=== PATIENT | female | born 1945 | race Caucasian/White ===

== ENCOUNTER 2023-04-27 11:25 | Emergency (ER) | payer MEDICARE, SELFPAY ==
[2023-04-27 11:25] VITALS: BP 133/97; BMI 46.1
[2023-04-27 11:29] VITALS: BP 133/97
[2023-04-27 12:02] LABS: % Basophils 0.5 % (0-2); % Eosinophils 1.1 % (0-6); % Immature Granulocytes 0.5 % (0-0.5); % Lymphocytes 24.8 % (20.5-51.1); % Monocytes 8.2 % (1.7-9.3); % Neutrophils 64.9 % (42.2-75.2); Absolute Eosinophils 0.1 10^3/uL (0-0.7); Absolute Lymphocytes 1.5 10^3/uL (1.2-3.4); Absolute Monocytes 0.5 10^3/uL (0.1-0.6); Hematocrit 36.4 % (37.0-47.0); Hemoglobin 12.3 g/dL (12.0-16.0); Mean Corp Hgb Conc. 33.8 g/dL (33.0-37.0); Mean Corpuscular Hgb 28.9 pg (27.0-31.0); Mean Corpuscular Volume 85.6 fL (81.0-99.0); Mean Platelet Volume 11.7 fL (7.4-10.4); Nucleated Red Blood Cells % 0 %; Platelet Count 158 10^3/uL (130-400); Red Blood Cell Count 4.25 10^6/uL (4.20-5.40); Red Cell Dist. Width 14.1 % (11.5-14.5); White Blood Cell Count 6.2 10^3/uL (4.8-10.8)
[2023-04-27 12:16] LABS: ALT (SGPT) 18 U/L (0-35); AST (SGOT) 20 U/L (14-36); Albumin 3.9 g/dl (3.5-5.0); Alkaline Phosphatase 105 U/L (38-126); Blood Urea Nitrogen 46 mg/dl (7-17); Calcium 10.2 mg/dl (8.4-10.2); Carbon Dioxide 32 mmol/L (22-30); Chloride 106 mmol/L (98-107); Estimated Creatinine Clearance 49 ml/min; Glucose 74 mg/dl (70-99); Potassium 3.9 mmol/L (3.5-5.1); Sodium 141 mmol/L (135-145); Total Bilirubin 0.8 mg/dl (0.2-1.3); Total Protein 6.5 g/dl (6.3-8.2); eGFR 41.57
[2023-04-27 12:26] LABS: NT-proBNP 840 pg/ml; Troponin I < 0.012 ng/ml
[2023-04-27 12:56] VITALS: BP 105/83
[2023-04-27 13:00] VITALS: BP 122/49
[2023-04-27 14:00] VITALS: BP 77/46
--- NOTE | 2023-04-27 14:25 | ED.CVA ---
History of Present Illness
General
Chief Complaint: CVA/TIA Symptoms
Source: patient
Exam Limitations: none
Time Seen by Provider: 04/27/23 11:55
Onset of Stroke Symptoms
Onset of symptoms known: Yes
Date of onset of symptoms: 04/27/23
Travel History
Have you had any contact with someone who has COVID-19?: No
Do you have any symptoms of coronavirus? Fever > 100 degrees, chills, cough, shortness of breath, sore throat, loss of taste or smell, muscle aches, or headache?: No
History of Present Illness
History of Present Illness:
78-year-old female who presents after she developed tingling in her left arm. Patient denies any motor weakness. She did have a little weird sensation in her neck as well. It then resolved. She reports no complaints of my evaluation. She
specifically denies headache, motor weakness, lower extremity symptoms, speech changes, vision changes. Patient does admit that she lives by herself so she is unsure what her speech sounded like but admits that she did not feel there was any
abnormality. The patient currently offers no complaints. She denies chest pain. The patient is on Eliquis and states she has not missed any doses.
Past History
Past History
ED Past Medical History: Arrthythmia (Paroxysmal atrial fibrillation), CAD, GERD, HTN, Hypercholesterolemia, NIDDM and Other (Morbid obesity, CKD)
ED Past Surgical History: Cardiac (Ablation for A. fib), Cholecystectomy and Gynecological
Social History
Tobacco: Non-smoker
Alcohol: None
Personal:
Living: with family
Family History
Family History: Unable to obtain
Phy Exam
Physical Exam
Physical Exam:
CONSTITUTIONAL Patient alert and oriented to person, place and time. Well-appearing. Vital signs reviewed.
HEAD atraumatic, normocephalic.
EYES eyelids normal to inspection, Pupils equally round and reactive to light, Extraocular muscles intact, Conjunctiva normal, Sclera normal.
NECK normal range of motion, Trachea midline, no jugular venous distention.
RESPIRATORY CHEST No respiratory distress noted, Chest expansion equal, Bilateral breath sounds clear.
CARDIOVASCULAR irregularly irregular, Heart sounds normal.
BACK normal inspection, no obvious deformities
UPPER EXTREMITY range of motion normal, Motor strength normal, no cyanosis, no edema.
LOWER EXTREMITY range of motion normal, Motor strength normal, no cyanosis, chronic bilateral edema with chronic skin changes
NEURO Speech normal, No focal motor deficits, [place] coma scale 15, Memory normal, Cranial Nerves intact to screening exam. No pronator drift. Normal [id number].
SKIN skin warm, dry, and normal in color.
PSYCHIATRIC patient oriented to person place and time, Normal affect.
Course
Orders/Labs/Results
Orders:
Orders
04/27/23 11:43
EKG [Electrocardiogram (*1)] Urgent
Reason for Study: Chest Pain
EKG- Treatment ONCE
04/27/23 11:55
CT Head W/o Iv Contrast Urgent
Comment:
Reason For Exam: L sided numbness
Complete Blood Count/With Diff Urgent
Comprehensive Metabolic Panel Urgent
NT-proBNP Urgent
Troponin I Urgent
04/27/23 14:44
Vital Signs- Treatment ONCE
Frequency: Once
04/27/23 14:56
Troponin I Urgent
Abnormal Lab Results
04/27/23 04/27/23
11:55 14:57
Hct 36.4 L %
(37.0-47.0)
MPV 11.7 H fL
(7.4-10.4)
Carbon Dioxide 32 H mmol/L
(22-30)
BUN 46 H mg/dl
(7-17)
Creatinine 1.3 H mg/dL
(0.6-1.0)
POC Glucose 179 H mg/dl
(70-99)
04/27/23 11:55
04/27/23 11:55
Vital Signs
Initial and Last Documented VS:
Initial Vital Signs
Temp Pulse Resp BP Pulse Ox
98.2 F 77 20 133/97 98
04/27/23 11:25 04/27/23 11:25 04/27/23 11:25 04/27/23 11:25 04/27/23 11:25
Last Documented Vital Signs
Temp Pulse Resp BP Pulse Ox
98.2 F 60 20 77/46 100
04/27/23 11:25 04/27/23 14:45 04/27/23 11:25 04/27/23 14:00 04/27/23 14:45
MDM/Problems Addressed
MDM/Problems Addressed:
Sensory changes, chronic A-fib
*Radiology
Radiology exam reviewed: preliminary read by ED provider (No obvious intracranial hemorrhage) and radiology read reviewed
*Pulse Oximetry
Patient hypoxic: no
*EKG
Interpreted by ED Provider?: Yes
Interpretation: abnormal
Rate: bradycardiac
Rhythm: a-fib
[place]: normal axis
Ischemia: non-specific ST changes
*Senior C Web Developer Interpretation
Rate: bradycardiac
Interpretation: abnormal
Rhythm: a-fib
*Critical Care Note
Total Time (30-74mins, 75-104mins- exclusive of procedures): Not Applicable
Data Reviewed
Review of Other/Old Records Reveals: Discharge Summary (February 2023 discharge summary)
Source: patient
Patient Management
Escalation/DeEscalation of care consider admission/obs:
Considered admission but patient is appears well and her symptoms have all resolved. She has no motor weakness and never did. Unclear etiology but her troponin is negative but will repeat a second troponin to rule out cardiac cause. She had no
lower extremity involvement. No facial involvement. Do not suspect CVA/TIA. However will recommend her to continue her anticoagulation and recommend patient follow-up
ED Attending Note
-
Portions of this chart may have been created with voice recognition software.� Occasional wrong word or��sound alike� substitutions may have occurred due to the inherent limitations of voice recognition software.
Discharge Plan
Departure
Patient Disposition: Home (Routine Discharge)
Date of Disposition: 04/27/23
Time of Disposition: 15:38
Patient with high blood pressure during this ER visit?: Yes
Discharge Problem:
Tingling in extremities
Prescriptions:
No Action
atorvastatin 20 MG tablet
20 mg PO DAILY
levothyroxine 125 MCG tablet
125 mcg PO DAILY
insulin aspart U-100 [Novolog FlexPen U-100 Insulin] 300 UNITS/3 ML insulin pen
16 units SC .BEFORE BREAKFAST
cholecalciferol (vitamin D3) 1,000 UNITS tablet
1,000 units PO DAILY Qty: 0
furosemide 40 MG tablet
40 mg PO DAILY 0RF
omeprazole 40 MG capsule,delayed release(DR/EC)
40 mg PO DAILY
insulin aspart U-100 [Novolog FlexPen U-100 Insulin] 100 unit/mL (3 mL) Insulin Pen
12 unit SC .AT LUNCH & DINNER
Eliquis 5 mg Tablet
5 mg PO BID
Levemir U-100 Insulin 1,000 UNITS/10 ML solution
55 units SC HS
furosemide [Lasix] 20 mg tablet
20 mg PO DAILY Qty: 30 0RF
cephalexin 500 mg capsule
500 mg PO QID 7 Days Qty: 28 0RF
Referrals:
Joyce Travis MD [Family Provider] -
Activity Restrictions/Additional Instructions:
Return immediately for any recurrence of symptoms, weakness of any kind, speech changes, vision changes, headache, chest pain, shortness of breath or any other concerns. Please continue your blood thinner as prescribed and see your doctor in the
next 3 days for follow-up and reevaluation.
Interventions
Interventions:
*Risk Screen - Suicide Last Done: 04/27/23 11:25
*Neglect/Abuse Screening Last Done: 04/27/23 11:25
ED- Fall Risk Assessment Last Done: 04/27/23 11:25
*ED COVID-19 Vaccine History Last Done: 04/27/23 11:25
--- NOTE | 2023-04-27 14:54 | EDRN ---
BP from 04/27/23 1400 of is invalid. The BP cuff was not on the patient at the time.
[2023-04-27 14:59] LABS: Glucose - Point of Care 179 mg/dl (70-99)
[2023-04-27 15:34] LABS: Troponin I < 0.012 ng/ml
== END 2023-04-27 15:40 | disposition home or self-care (01) ==
LOC: EMR 11:25
PROVIDERS: EMERGENCY PHYSICIAN Emergency Medicine; FAMILY PHYSICIAN Family Medicine
DX: R20.2 Paresthesia of skin (principal); I25.10 Atherosclerotic heart disease of native coronary artery without angina pectoris; I12.9 Hypertensive chronic kidney disease with stage 1 through stage 4 chronic kidney disease, or unspecified chronic kidney disease; E11.22 Type 2 diabetes mellitus with diabetic chronic kidney disease; N18.9 Chronic kidney disease, unspecified; K21.9 Gastro-esophageal reflux disease without esophagitis; E66.01 Morbid (severe) obesity due to excess calories; I48.0 Paroxysmal atrial fibrillation; Z79.01 Long term (current) use of anticoagulants; Z90.49 Acquired absence of other specified parts of digestive tract
CPT/HCPCS: 99284; 70450; 80053; 82962; 83880; 84484; 85025; 93005

== ENCOUNTER 2023-07-12 10:50 | Emergency (ER) | payer MEDICARE, SELFPAY ==
[2023-07-12] VITALS (7 sets, daily range): BP systolic 135–184; BP diastolic 40–97; PULSE 58–85; BMI 48.4
--- NOTE | 2023-07-12 11:47 | EDRN ---
Dr. Gil in to see pt at thistime.
--- NOTE | 2023-07-12 11:49 | EDRN ---
Otto ELDER informed about pt's itching in vaginal area w/ yellow discharge and also that pt if examined preferring female examiner.
[2023-07-12 12:14] LABS: Hematocrit 37.1 % (37.0-47.0); Hemoglobin 11.8 g/dL (12.0-16.0); Mean Corp Hgb Conc. 31.8 g/dL (33.0-37.0); Mean Corpuscular Hgb 27.8 pg (27.0-31.0); Mean Corpuscular Volume 87.5 fL (81.0-99.0); Mean Platelet Volume 10.4 fL (7.4-10.4); Platelet Count 142 10^3/uL (130-400); Red Blood Cell Count 4.24 10^6/uL (4.20-5.40); Red Cell Dist. Width 13.8 % (11.5-14.5); White Blood Cell Count 6.8 10^3/uL (4.8-10.8)
[2023-07-12] MEDS: NSS 500 IV (12:26)
[2023-07-12] MEDS: ANTIVERT 25 MG PO (12:33)
[2023-07-12 12:39] LABS: Troponin I < 0.012 ng/ml
[2023-07-12 12:42] LABS: ALT (SGPT) 13 U/L (0-35); AST (SGOT) 17 U/L (14-36); Albumin 3.5 g/dl (3.5-5.0); Alkaline Phosphatase 114 U/L (38-126); Blood Urea Nitrogen 41 mg/dl (7-17); Calcium 10.3 mg/dl (8.4-10.2); Carbon Dioxide 31 mmol/L (22-30); Chloride 107 mmol/L (98-107); Estimated Creatinine Clearance 59 ml/min; Glucose 183 mg/dl (70-99); Magnesium 1.9 mg/dl (1.6-2.3); Potassium 4.3 mmol/L (3.5-5.1); Sodium 139 mmol/L (135-145); Total Bilirubin 0.5 mg/dl (0.2-1.3); Total Protein 6.1 g/dl (6.3-8.2)
--- NOTE | 2023-07-12 12:43 | ED.GENMED ---
History of Present Illness
General
Chief Complaint: Dizziness
Source: patient
Exam Limitations: none
Time Seen by Provider: 07/12/23 11:40
Nursing documentation reviewed up to this point in time: agreed with
Travel History
Have you had any contact with someone who has COVID-19?: No
Do you have any symptoms of coronavirus? Fever > 100 degrees, chills, cough, shortness of breath, sore throat, loss of taste or smell, muscle aches, or headache?: No
History of Present Illness
History of Present Illness:
Patient with history of atrial fibrillation on Eliquis, presents to ED secondary to ringing sensation in her ears over the past 3 days, associated with dizziness when standing up this morning. Denies room spinning sensation. Denies headache.
Denies blurred vision. Denies loss of sensation or weakness. Denies recent illness. Denies recent change in medications or diet. Denies previous history of similar symptoms. Denies chest pain or chest palpitations. Denies nausea or vomiting
with lightheadedness.
Past History
Past History
ED Past Medical History: Arrthythmia (Paroxysmal atrial fibrillation), CAD, GERD, HTN, Hypercholesterolemia, NIDDM and Other (Morbid obesity, CKD)
ED Past Surgical History: Cardiac (Ablation for A. fib), Cholecystectomy and Gynecological
Social History
Tobacco: Non-smoker
Alcohol: None
Personal:
Living: with family
Family History
Family History: Unable to obtain
Review of Systems
Review of Systems
Allergies reviewed?: Yes
All Other Systems: ROS reviewed and negative except as documented in HPI and ROS
Constitutional: Reports no symptoms
EENT: Reports no symptoms
Respiratory: Reports no symptoms
Cardiac: Reports no symptoms; Denies palpitations
ABD/GI: Reports no symptoms; Denies nausea or vomiting
: Reports no symptoms
Musculoskeletal: Reports no symptoms
Skin: Reports no symptoms
Neurological: Reports dizzy; Denies headache, weakness or numbness
Phy Exam
Physical Exam
Physical Exam:
Physical Exam
General: mild distress, not acutely ill. afebrile
Head: nc/at. eomi. no nystagmus noted.
Ear: normal
Neck: supple. no meningeal signs.
Heart: irregularly irregular, no murmur. equal radial pulses.
Lungs: no acute respiratory distress. clear bilaterally
Abdomen: normal bowel sounds. not tender.
Neuro: alert and oriented. no focal neurological deficits
Skin: no rash
Psychiatric: well kept. interactive and cooperative
Extremities: no edema. no calf tenderness.
Course
Orders/Labs/Results
Orders:
Orders
07/12/23 11:50
Electrocardiogram (*1) Urgent
Reason for Study: Vertigo / Dizzy
CT Head W/o Iv Contrast Urgent
Comment:
Reason For Exam: dizziness
EKG- Treatment ONCE
Orthostatic VS- Treatment ONCE
Meclizine [Antivert] 25 mg PO NOW STA
07/12/23 11:51
0.9% Sodium Chloride 500 ml [Nss] 500 ml IV BOLUS
07/12/23 12:08
Complete Blood Count/No Diff Urgent
Comprehensive Metabolic Panel Urgent
Magnesium Urgent
Troponin I Urgent
07/12/23 16:26
Urinalysis Reflex To Culture Urgent
Date Specimen was Collected: 07/12/23
Time Specimen was Collected: 16:25
Urine Microscopic Reflex Cult Urgent
Urine Culture Urgent
PAUL Source: U
Specimen Description:
Date Specimen was Collected: 07/12/23
Time Specimen was Collected: 16:25
07/12/23 17:03
Cephalexin Monohydrate [Keflex] 250 mg PO NOW STA
Abnormal Lab Results
07/12/23 07/12/23 07/12/23
12:08 13:59 16:26
Hgb 11.8 L g/dL
(12.0-16.0)
MCHC 31.8 L g/dL
(33.0-37.0)
Carbon Dioxide 31 H mmol/L
(22-30)
BUN 41 H mg/dl
(7-17)
Creatinine 1.1 H mg/dL
(0.6-1.0)
Glucose 183 H mg/dl
(70-99)
Calcium 10.3 H mg/dl
(8.4-10.2)
Total Protein 6.1 L g/dl
(6.3-8.2)
Ur Occult Blood Reflex Trace A
(Negative)
Urine Nitrite (Reflex) Positive A
(Negative)
Leukocyte Esterase Rfl 2+ A
(Negative)
Urine WBC (Reflex) >100 A /HPF
(0-5)
Urine Bacteria (Reflex) Many A
(Negative)
POC Glucose 136 H mg/dl
(70-99)
07/12/23 12:08
07/12/23 12:08
Vital Signs
Initial and Last Documented VS:
Initial Vital Signs
Temp Pulse Resp BP Pulse Ox
98.3 F 69 16 184/84 98
07/12/23 10:59 07/12/23 10:59 07/12/23 10:59 07/12/23 10:59 07/12/23 10:59
Last Documented Vital Signs
Temp Pulse Resp BP Pulse Ox
98.3 F 64 16 153/84 100
07/12/23 10:59 07/12/23 16:40 07/12/23 16:40 07/12/23 16:40 07/12/23 16:40
MDM/Problems Addressed
MDM/Problems Addressed:
CT head: NAD.
History and exam consistent with likely an acute vertigo episode, triggered by her ongoing tinnitus. Patient reports significant improvement symptoms after treatment. Patient is able to ambulate with use of walker, which is baseline, without any
recurrent symptoms. As such, patient will be discharged home in stable condition, with prescription for meclizine, to be used as needed, along with referral to ENT physician for further evaluation and treatment.
U/A noted. As patient has had history of urinary incontinence with UTI, will empirically start treatment with Keflex 250 twice daily x 7 days.
*Critical Care Note
Total Time (30-74mins, 75-104mins- exclusive of procedures): Not Applicable
ED Attending Note
-
Portions of this chart may have been created with voice recognition software.� Occasional wrong word or��sound alike� substitutions may have occurred due to the inherent limitations of voice recognition software.
Discharge Plan
Departure
Patient Disposition: Home (Routine Discharge)
Date of Disposition: 07/12/23
Time of Disposition: 16:14
Patient with high blood pressure during this ER visit?: Yes
Discharge Problem:
Vertigo, Tinnitus, Acute UTI
Instructions: Tinnitus (ringing in the ears), Urinary Tract Infection, Adult (DC), Vertigo (a Type of Dizziness) (DC)
Prescriptions:
New
meclizine 25 mg tablet
25 mg PO TID PRN (Reason: dizziness) Qty: 20 0RF
cephalexin 250 mg capsule
250 mg PO Q12H Qty: 14 0RF
No Action
atorvastatin 20 MG tablet
20 mg PO DAILY
levothyroxine 125 MCG tablet
125 mcg PO DAILY
insulin aspart U-100 [Novolog FlexPen U-100 Insulin] 300 UNITS/3 ML insulin pen
16 units SC .BEFORE BREAKFAST
cholecalciferol (vitamin D3) 1,000 UNITS tablet
1,000 units PO DAILY Qty: 0
furosemide 40 MG tablet
40 mg PO DAILY 0RF
omeprazole 40 MG capsule,delayed release(DR/EC)
40 mg PO DAILY
insulin aspart U-100 [Novolog FlexPen U-100 Insulin] 100 unit/mL (3 mL) Insulin Pen
12 unit SC .AT LUNCH & DINNER
Eliquis 5 mg Tablet
5 mg PO BID
Levemir U-100 Insulin 1,000 UNITS/10 ML solution
55 units SC HS
furosemide [Lasix] 20 mg tablet
20 mg PO DAILY Qty: 30 0RF
cephalexin 500 mg capsule
500 mg PO QID 7 Days Qty: 28 0RF
Referrals:
Cholo Kessler MD [Active] -
Joyce Travis MD [Family Provider] -
Activity Restrictions/Additional Instructions:
As discussed, please follow-up with your primary care physician and/or referred to ENT physician for further evaluation and treatment. Your prescription has been sent electronically to [facility] pharmacy in [place].
Interventions
Interventions:
*Risk Screen - Suicide Last Done: 07/12/23 10:59
*General Assessment Last Done: 07/12/23 10:59
*Neglect/Abuse Screening Last Done: 07/12/23 10:59
ED- Fall Risk Assessment Last Done: 07/12/23 11:11
*ED COVID-19 Vaccine History Last Done: 07/12/23 10:59
*Nursing Disposition Last Done: 07/12/23 16:40
ED- Neurological Assessment Last Done: 07/12/23 11:11
ED- Cardiac Assessment Last Done: 07/12/23 11:11
ED Swallowing Screen Last Done: 07/12/23 12:32
Discharge Date and Time
Discharge Date/Time: 07/12/23 17:25
Print Language: ALBANIAN
--- NOTE | 2023-07-12 13:47 | EDRN ---
Pt stated to me that she is feeling like her glucose is very low at this time and is therefore requesting to eat. Glucose on labwork was 183. Dr. Gil called and this RN will check glucose and administer boxed lunch to pt.
[2023-07-12 14:03] LABS: Glucose - Point of Care 136 mg/dl (70-99)
--- NOTE | 2023-07-12 14:25 | EDRN ---
Pt called me to her room teary eyed and red faced and demanded to eat for low glucose at 13:40. Pt stated that she could feel her glucose is low and needs to eat. This RN checked pt's serum glucose from labs drawn and it was 183 at 12 noon. Pt was
informed and said that she knows her glucose is too low. This RN said she will speak to Dr. Gil and he said to check pt's glucose and then she can eat. Glucose 136 and pt administered a boxed lunch at 13:55 after pt c/o ESCALANTE for hypoglycemia. Pt
states to this RN that her glucose has to be between 152 and 175 or she is hypoglycemic.
--- NOTE | 2023-07-12 14:33 | EDRN ---
Dr. Gil in to see pt. Pt is to get OOB w/ walker and attempt to ambulate at this time.
--- NOTE | 2023-07-12 16:04 | EDRN ---
Dr. Gil in room w/pt at this time.
--- NOTE | 2023-07-12 16:15 | EDRN ---
Pt ambulated to BR w/ walker only needing assist to lift her legs OOB w/out assist. Pt was able to maneuver in BR w/ walker. During walk to BR pt stated that she had no further dizziness and the loud noise she was hearing is now much less. pt then
was able to maneuver off of toilet, wash her hands and ambulate w/ walker back to her room w/out assist and only needing assist to lift her legs onto stretcher. Urine spec obtained and sent. This RN called Dr. Gil at this time and informed him about
pt's ability to ambulated.
--- NOTE | 2023-07-12 16:21 | EDRN ---
Dr. Gil in room w/ pt.
[2023-07-12 16:33] LABS: Urine Albumin Trace (Neg - Trace); Urine Bilirubin Negative (Negative); Urine Character Slightly Cloudy (Clear); Urine Color Yellow; Urine Glucose Negative (Negative); Urine Ketone Negative (Negative); Urine Leukocyte 2+ (Negative); Urine Nitrite Positive (Negative); Urine Occult Blood Trace (Negative); Urine Urobilinogen Negative (Neg - 1+); Urine pH 6.5 (5.0-9.0)
[2023-07-12 16:43] LABS: Urine Bacteria Many (Negative); Urine Red Blood Cell 0-2 /HPF (0-2); Urine White Cell >100 /HPF (0-5)
--- NOTE | 2023-07-12 16:53 | EDRN ---
Pt requesting RN to call her son for a ride home. This RN just attempted to call pt's son Leobardo w/ number listed in chart and no answer at this time.
--- NOTE | 2023-07-12 16:58 | EDRN ---
Dr. Gil has returned to speak w/ pt at this time.
--- NOTE | 2023-07-12 17:12 | EDRN ---
Pt's son is here and will transport pt to her residense.
--- NOTE | 2023-07-12 17:15 | EDRN ---
This RN called Omkar Whitney per pt's request and he answered walking into ER.
[2023-07-12] MEDS: KEFLEX 250 MG PO (17:16)
== END 2023-07-12 17:25 | disposition home or self-care (01) ==
LOC: EMR 10:50
PROVIDERS: EMERGENCY PHYSICIAN Emergency Medicine; FAMILY PHYSICIAN Family Medicine
DX: R42 Dizziness and giddiness (principal); H93.13 Tinnitus, bilateral; N39.0 Urinary tract infection, site not specified; I10 Essential (primary) hypertension; I48.0 Paroxysmal atrial fibrillation; Z79.01 Long term (current) use of anticoagulants
CPT/HCPCS: 99285; 96360; 70450; 80053; 81003; 81015; 82962; 83735; 84484; 85027; 87086; 93005

== ENCOUNTER 2023-09-24 15:04 | Inpatient (IN) | payer MEDICARE, SELFPAY ==
[2023-09-24] VITALS (7 sets, daily range): BP systolic 116–176; BP diastolic 48–100; BMI 46.0
[2023-09-24 08:55] LABS: % Basophils 0.3 % (0-2); % Eosinophils 1.2 % (0-6); % Immature Granulocytes 0.3 % (0-0.5); % Lymphocytes 18.5 % (20.5-51.1); % Monocytes 8.3 % (1.7-9.3); % Neutrophils 71.4 % (42.2-75.2); Absolute Eosinophils 0.1 10^3/uL (0-0.7); Absolute Lymphocytes 1.1 10^3/uL (1.2-3.4); Absolute Monocytes 0.5 10^3/uL (0.1-0.6); Absolute Neutrophils 4.1 10^3/uL (1.4-6.5); Hematocrit 35.2 % (37.0-47.0); Mean Corp Hgb Conc. 31.3 g/dL (33.0-37.0); Mean Corpuscular Hgb 27.2 pg (27.0-31.0); Mean Corpuscular Volume 86.9 fL (81.0-99.0); Mean Platelet Volume 10.4 fL (7.4-10.4); Nucleated Red Blood Cells % 0 %; Platelet Count 147 10^3/uL (130-400); Red Blood Cell Count 4.05 10^6/uL (4.20-5.40); Red Cell Dist. Width 14.5 % (11.5-14.5); White Blood Cell Count 5.8 10^3/uL (4.8-10.8)
--- NOTE | 2023-09-24 09:10 | ED.GENMED ---
History of Present Illness
General
Chief Complaint: Cardiac Symptoms
Source: patient
Exam Limitations: none
Time Seen by Provider: 09/24/23 08:22
History of Present Illness
History of Present Illness:
78-year-old female complaining of heart racing palpitations lightheaded especially with exertion progressive over the last few weeks. Was much worse this morning. Currently asymptomatic at rest but states symptoms are fairly significant with
exertion. She was scheduled for a leg ultrasounds today.
Past History
Past History
ED Past Medical History: Arrthythmia (Paroxysmal atrial fibrillation), CAD, GERD, HTN, Hypercholesterolemia, NIDDM and Other (Morbid obesity, CKD)
ED Past Surgical History: Cardiac (Ablation for A. fib), Cholecystectomy and Gynecological
Social History
Tobacco: Non-smoker
Alcohol: None
Personal:
Living: with family
Family History
Family History: Unable to obtain
Review of Systems
Review of Systems
All Other Systems: Not applicable
Constitutional: Denies fever
Cardiac: Denies chest pain or syncope
Phy Exam
Physical Exam
Physical Exam:
GENERAL: Alert and oriented in no apparent distress
EYE: Orbits normal.
NECK: Supple, no thyroid palpable
ENT: Pharynx without erythema
CARDIAC: Mildly irregular no murmur.
LUNGS: Clear breath sounds,normal
ABDOMEN: Soft, without focal tenderness or distention. Elevated BMI
NEUROLOGICAL: Alert and oriented , grossly non-focal
SKIN: Warm and dry, no rash or lesion, no discoloration, skin intact.
MUSCULOSKELETAL: Chronic appearing significant edema
PSYCH: Normal and appropriate interaction.
Course
Orders/Labs/Results
Orders:
Orders
09/24/23 08:24
Electrocardiogram (*1) Urgent
Reason for Study: Palpitations
09/24/23 08:25
EKG- Treatment ONCE
09/24/23 08:46
CMP [Comprehensive Metabolic Panel] Urgent
Complete Blood Count/With Diff Urgent
NT-proBNP Urgent
Troponin I Urgent
09/24/23 08:48
CXR2 [CR Chest - 2 Views ] Urgent
Comment:
Reason For Exam: Heart racing/tachycardia
US Periph Venous LOWER Ext Reginald Urgent
Comment:
Reason For Exam: Bilateral leg swelling
Abnormal Lab Results
09/24/23
08:46
RBC 4.05 L 10^6/uL
(4.20-5.40)
Hgb 11.0 L g/dL
(12.0-16.0)
Hct 35.2 L %
(37.0-47.0)
MCHC 31.3 L g/dL
(33.0-37.0)
Absolute Lymphs (auto) 1.1 L 10^3/uL
(1.2-3.4)
Lymphocytes % 18.5 L %
(20.5-51.1)
Chloride 108 H mmol/L
(98-107)
BUN 36 H mg/dl
(7-17)
Creatinine 1.1 H mg/dL
(0.6-1.0)
Glucose 212 H mg/dl
(70-99)
Calcium 10.3 H mg/dl
(8.4-10.2)
Total Protein 5.7 L g/dl
(6.3-8.2)
Albumin 3.4 L g/dl
(3.5-5.0)
09/24/23 08:46
09/24/23 08:46
Vital Signs
Initial and Last Documented VS:
Initial Vital Signs
Pulse Resp BP Pulse Ox
75 20 176/84 100
09/24/23 08:26 09/24/23 08:26 09/24/23 08:26 09/24/23 08:26
Last Documented Vital Signs
Temp Pulse Resp BP Pulse Ox
98.1 F 60 17 176/84 98
09/24/23 08:31 09/24/23 12:30 09/24/23 12:30 09/24/23 08:31 09/24/23 12:30
MDM/Problems Addressed
Differential Diagnosis Includes:
Patient with exertional lightheadedness and heart racing. Clinically this sounds like her atrial fibrillation gets somewhat out of control with exertion. Etiology uncertain at this time. Clinically not in heart failure. Highly doubt pulmonary
emboli given her Eliquis. We will do leg ultrasounds however. Workup in progress.
*Radiology
Radiology exam reviewed: radiology read reviewed (Negative kidney) and other (Negative leg ultrasound)
*Pulse Oximetry
Patient hypoxic: no
*EKG
Interpreted by ED Provider?: Yes
Interpretation: abnormal
Comparison EKG: no changes
Heart Rate: 71
Rate: normal
Rhythm: a-fib
[place]: normal axis
Interval: normal interval
QRS Pattern: normal QRS
Ischemia: non-specific ST changes
*Duplicator Punch Operator Interpretation
Rate: normal
Interpretation: normal
Heart Rate: 80
Rhythm: a-fib
*Critical Care Note
Total Time (30-74mins, 75-104mins- exclusive of procedures): Not Applicable
Data Reviewed
Review of Other/Old Records Reveals: Labs, Radiology Studies and Testing
Update Note
Update Note:
Patient describing significant symptoms with exertion and is uncomfortable with outpatient management. Will refer for further evaluation and patient
ED Attending Note
-
Portions of this chart may have been created with voice recognition software.� Occasional wrong word or��sound alike� substitutions may have occurred due to the inherent limitations of voice recognition software.
Discharge Plan
Departure
Patient Disposition: Admit
Date of Disposition: 09/24/23
Time of Disposition: 13:31
Presentation/result/management discussed w/ accepting MD/DO: Hospitalist
Discharge Problem:
Atrial fibrillation, Dyspnea on exertion, Chronic lower extremity edema
Prescriptions:
No Action
atorvastatin 20 MG tablet
20 mg PO DAILY
levothyroxine 125 MCG tablet
125 mcg PO DAILY
cholecalciferol (vitamin D3) 1,000 UNITS tablet
1,000 units PO DAILY Qty: 0
omeprazole 40 MG capsule,delayed release(DR/EC)
40 mg PO DAILY
Eliquis 5 mg Tablet
5 mg PO BID
cephalexin 500 mg capsule
500 mg PO QID 7 Days Qty: 28 0RF
furosemide 40 MG tablet
60 mg PO DAILY
oxybutynin chloride 5 mg Tablet Extended Release 24hr
5 mg PO DAILY
gabapentin 100 mg Capsule
100 mg PO HS
metoprolol succinate 25 mg Tablet Extended Release 24 Hr
25 mg PO BIDPRN PRN (Reason: afib)
PreserVision AREDS 2,148 mcg-113 mg-45 mg-17.4mg Tablet
1 tab PO DAILY
insulin degludec [Tresiba FlexTouch U-100] 100 unit/mL (3 mL) Insulin Pen
45 unit SC HS
[place] 3-6-9 1,200 mg Capsule
1 cap PO DAILY
Fiasp FlexTouch U-100 Insulin 100 unit/mL (3 mL) Insulin Pen
16 sliding scale dose SC AC
Referrals:
Joyce Travis MD [Family Provider] -
Interventions
Interventions:
*Risk Screen - Suicide Last Done: 09/24/23 08:40
*General Assessment Last Done: 09/24/23 08:40
ED- Fall Risk Assessment Last Done: 09/24/23 08:40
ED- Pulmonary Assessment Last Done: 09/24/23 08:40
ED- Cardiac Assessment Last Done: 09/24/23 08:40
Discharge Date and Time
Print Language: SUDANESE
[2023-09-24 09:12] LABS: ALT (SGPT) 12 U/L (0-35); AST (SGOT) 16 U/L (14-36); Albumin 3.4 g/dl (3.5-5.0); Alkaline Phosphatase 105 U/L (38-126); Blood Urea Nitrogen 36 mg/dl (7-17); Calcium 10.3 mg/dl (8.4-10.2); Carbon Dioxide 28 mmol/L (22-30); Chloride 108 mmol/L (98-107); Glucose 212 mg/dl (70-99); Sodium 142 mmol/L (135-145); Total Bilirubin 0.5 mg/dl (0.2-1.3); Total Protein 5.7 g/dl (6.3-8.2)
[2023-09-24 09:23] LABS: NT-proBNP 1230 pg/ml; Troponin I < 0.012 ng/ml
[2023-09-24 14:34] LABS: Glucose - Point of Care 154 mg/dl (70-99)
--- NOTE | 2023-09-24 14:59 | HPS.HSE ---
Family Physician
-
Family Physician: Joyce Travis MD
Chief Complaint
-
Exertional dyspnea.
History of Present Illness
Patient is a 78 years old female with heart failure preserved EF, permanent atrial fibrillation, obstructive sleep apnea on CPAP, insulin requiring diabetes and obesity who presents with weeks of gradually increasing exertional dyspnea, currently
with even minimal exertion such as changing clothes and bathing. Patient complains of chest heaviness with exertion but denies pain. She noticed gaining of weight. She admits to significant lightheadedness and occasional palpitations with
exertion. She denies any fever or chills. She has been compliant with oral diuretic regimen as well as BiPAP at night.
Medical History
Past Medical History
Past Medical History: Reports Arrhythmia (Permanent atrial fibrillation), CHF, GERD, HTN and IDDM
Past Surgical History: Reports None
Social History
Tobacco: Non-smoker
Alcohol: None
Drug: None
Personal:
Living: With Family
Family History
Family History: Not pertinent
Allergies / Home Medications
Allergies reflects when Allergies were last updated in [email or web address].
Home Medications with original date entered in [email or web address]
Allergy/Medication List:
Allergies
Allergy/AdvReac Type Severity Reaction Status Date / Time
adhesive tape Allergy Blistering Verified 09/24/23 08:38
metformin HCl Allergy Diarrhea Verified 09/24/23 08:38
[From Glucophage]
vancomycin Allergy Unknown Verified 09/24/23 08:38
Home Medications
atorvastatin 20 mg tablet 20 mg PO DAILY High cholesterol 11/27/11
levothyroxine 125 mcg tablet 125 mcg PO DAILY Thyroid 01/31/14
cholecalciferol (vitamin D3) 25 mcg (1,000 unit) tablet 1,000 units PO DAILY Supplement ##0 10/27/20
omeprazole 40 mg capsule,delayed release 40 mg PO DAILY Gastrointestinal issue 02/05/21
apixaban 5 mg tablet (Eliquis) 5 mg PO BID Blood Clot Prevention/Tx 03/08/23
cephalexin 500 mg capsule 500 mg PO QID 7 days #28 caps 03/11/23
fish, borage, flaxseed oils-omega 3,6,9 comb no.1 1,200 mg capsule ([place] 3-6-9) 1 cap PO DAILY 09/24/23
furosemide 40 mg tablet 60 mg PO DAILY 09/24/23
gabapentin 100 mg capsule 100 mg PO HS 09/24/23
insulin aspart (niacinamide)(U-100) 100 unit/mL(3 mL) subcutaneous pen (Fiasp FlexTouch U-100 Insulin) 16 sliding scale dose SC AC 09/24/23
insulin degludec 100 unit/mL (3 mL) subcutaneous pen (Tresiba FlexTouch U-100 insulin) 45 unit SC HS 09/24/23
metoprolol succinate 25 mg tablet,extended release 24 hr 25 mg PO BIDPRN PRN afib 09/24/23
oxybutynin chloride 5 mg tablet,extended release 24 hr 5 mg PO DAILY 09/24/23
vitamins A,C,Q-ftxq-nhcffw 2,148 mcg-113 mg-45 mg-17.4 mg tablet (PreserVision AREDS) 1 tab PO DAILY 09/24/23
Review of Systems
-
A 12 point ROS was completed and negative except as noted: Yes
Physical Exam
Vital Signs
Vital Signs
Temp Pulse Resp BP Pulse Ox
98.1 F 69 14 150/89 100
09/24/23 08:31 09/24/23 14:00 09/24/23 14:00 09/24/23 14:00 09/24/23 14:00
Physical Exam
General: Well Developed, Well Nourished and No Apparent Distress
HEENT: NormoCephalic, Moist mucous membranes and Atraumatic
Respiratory: Clear
Cardiac: S1/S2 and Regular Rhythm; No Murmur or Rub
GI: Soft, Non Tender, Non Distended and Normal Bowel Sounds; No Organomegaly
Rectal: Deferred by Provider
Musculoskeletal: No Clubbing, No Cyanosis and No Edema
Skin: No Rash
Neuro: Nonfocal/grossly intact
Laboratory Results
-
09/24/23 08:46
09/24/23 08:46
Laboratory Results
Total Bilirubin 0.5 mg/dl (0.2-1.3) 09/24/23 08:46
AST 16 U/L (14-36) 09/24/23 08:46
ALT 12 U/L (0-35) 09/24/23 08:46
Alkaline Phosphatase 105 U/L (38-126) 09/24/23 08:46
Troponin I < 0.012 ng/ml 09/24/23 08:46
Data Reviewed
-
Diagnostic Radiology: Image Personally Visualized and interpreted and Report Reviewed by me
Lab Data: Labs Reviewed by me
Impression/Plan
-
IMPRESSION:
Presentation with exertional dyspnea, occasional palpitations and lightheadedness.
Acute CHF exacerbation preserved EF.
Conditions prior to admission:
Chronic CHF preserved EF.
Chronic lower extremity edema and stasis cellulitis
Permanent atrial fibrillation
Anticoagulation with Eliquis
Obstructive sleep apnea.
Obesity due to excessive calories.
IDDM
Essential hypertension
Dyslipidemia
Hypothyroidism on replacement
GERD.
PLAN:
Presents with gradually increasing exertional dyspnea, palpitations, chest heaviness and lightheadedness
Exam with not easy to assess volume status due to body habitus
Not hypoxic
Noted with gaining weight close to 14 pounds since last hospitalization with CHF on 03/22.
Elevated pro CHF BNP over the baseline
Chest x-ray with no infiltrates
Echocardiogram 03/22 with LVEF 55-60%, A-fib, mild to moderate MR, mild TR.
Update echocardiogram
Consider cardiology consultation
Start IV diuresis with Lasix 60 mg IV twice daily
Daily weight
Daily BMP
Permanent atrial fibrillation
She complains of palpitations with exertion
EKG with A-fib in 60s.
Continue rate control with metoprolol 25 mg twice daily. She has history of bradycardia. Will monitor.
Continue anticoagulation with Eliquis
Obstructive sleep apnea
Continue BiPAP at night
Chronic left greater than right lower extremity edema
Chronic venous stasis dermatitis with no evidence of infection.
Lower extremity Doppler negative for DVT
Hopeful improved with diuresis.
IDDM.
Update hemoglobin A1c
Carbohydrate controlled diet.
Continue preadmission regimen with aspart 16 units AC and Tresiba 45 units at bedtime
Hypothyroidism
Continue levothyroxine
DVT prophylaxis/Eliquis
Full code
[2023-09-24] MEDS: LASIX 60 MG IV (16:02)
[2023-09-24 17:30] LABS: Glucose - Point of Care 191 mg/dl (70-99)
[2023-09-24] MEDS: LIPITOR 20 MG PO (17:45)
[2023-09-24] MEDS: SYNTHROID 125 MCG PO (17:45)
--- NOTE | 2023-09-24 18:04 | PTCARENOTE ---
Received pt from ER via stretcher, accompanied by ER staff. Pt AAO x3, HOGAN; able to transfer to bed with assistance/walker; legs weak. VSS. Placed on telemetry:A fib. Pt has +2 edema BLE/feet. On room air- pulse ox 98%, pt with (+) slight HARDEN;
(-) cough/sputum. Abd obese, soft, to start 1800 gurwinder diet. Incont large amts urine on arrival to room, pt insistent on Purewick catheter; instructed pt that Purewick would not be placed as she is able to get OOB to BSC with assistance. Afebrile;
lower legs/feet reddened/blistered. Oriented to 4East, currently resting in bed. Will continue to monitor.
[2023-09-24] MEDS: NOVOLOG FLEXPEN 16 UNITS SC (18:28)
[2023-09-24] MEDS: NOVOLOG FLEXPEN-LOW RESISTANCE 1 UNITS SC (18:29)
[2023-09-24] MEDS: TOPROL XL 25 MG PO (20:44)
[2023-09-24] MEDS: ELIQUIS 5 MG PO (20:45)
[2023-09-24 21:10] LABS: Glucose - Point of Care 73 mg/dl (70-99)
[2023-09-24] MEDS: LANTUS SC (21:30)
[2023-09-24 21:36] LABS: Glucose - Point of Care 73 mg/dl (70-99)
[2023-09-24 21:53] LABS: Glucose - Point of Care 88 mg/dl (70-99)
[2023-09-24] MEDS: NEURONTIN 100 MG PO (22:17)
[2023-09-25] VITALS (8 sets, daily range): BP systolic 118–169; BP diastolic 54–92; PULSE 69; O2SAT 95; BMI 45.5
[2023-09-25 03:06] LABS: Glucose - Point of Care 115 mg/dl (70-99)
[2023-09-25] MEDS: SYNTHROID 125 MCG PO (05:04)
--- NOTE | 2023-09-25 06:19 | PTCARENOTE ---
Pt w/ frequent pauses < 3 seconds and Bradycardia - not sustaining.
[2023-09-25 07:08] LABS: Glucose - Point of Care 121 mg/dl (70-99)
[2023-09-25 07:33] LABS: % Basophils 0.5 % (0-2); % Immature Granulocytes 0.3 % (0-0.5); % Lymphocytes 24.2 % (20.5-51.1); % Monocytes 9.2 % (1.7-9.3); % Neutrophils 63.8 % (42.2-75.2); Absolute Eosinophils 0.1 10^3/uL (0-0.7); Absolute Lymphocytes 1.6 10^3/uL (1.2-3.4); Absolute Monocytes 0.6 10^3/uL (0.1-0.6); Absolute Neutrophils 4.1 10^3/uL (1.4-6.5); Mean Corp Hgb Conc. 32.4 g/dL (33.0-37.0); Mean Corpuscular Hgb 27.2 pg (27.0-31.0); Mean Corpuscular Volume 84.2 fL (81.0-99.0); Mean Platelet Volume 10.6 fL (7.4-10.4); Nucleated Red Blood Cells % 0 %; Platelet Count 163 10^3/uL (130-400); Red Blood Cell Count 4.04 10^6/uL (4.20-5.40); Red Cell Dist. Width 14.6 % (11.5-14.5); White Blood Cell Count 6.4 10^3/uL (4.8-10.8)
[2023-09-25 07:59] LABS: Blood Urea Nitrogen 36 mg/dl (7-17); Calcium 9.8 mg/dl (8.4-10.2); Carbon Dioxide 32 mmol/L (22-30); Chloride 106 mmol/L (98-107); Estimated Creatinine Clearance 55 ml/min; Glucose 105 mg/dl (70-99); Potassium 4.1 mmol/L (3.5-5.1); Sodium 143 mmol/L (135-145); eGFR 45.76
[2023-09-25] MEDS: NOVOLOG FLEXPEN SC (09:29)
[2023-09-25] MEDS: NOVOLOG FLEXPEN-LOW RESISTANCE SC (09:29)
[2023-09-25] MEDS: TOPROL XL PO (09:30)
[2023-09-25] MEDS: ELIQUIS 5 MG PO ×2 (09:31→21:00)
[2023-09-25] MEDS: OCUVITE SOFTGEL 1 CAP PO (09:31)
[2023-09-25] MEDS: LASIX 60 MG IV ×2 (09:31→16:54)
[2023-09-25] MEDS: VITAMIN D3 (cholecalciferol) 25 MCG PO (09:32)
[2023-09-25] MEDS: PROTONIX 40 MG PO (09:32)
[2023-09-25] MEDS: LIPITOR 20 MG PO (09:32)
[2023-09-25] MEDS: DITROPAN 2.5 MG PO ×2 (09:32→21:00)
--- NOTE | 2023-09-25 09:49 | CON.CAR ---
Addendum entered and electronically signed by Mario Patel MD 09/25/23 14:24:
I saw and examined the patient.
The Turning Lathe Tender's note was reviewed and I agree with the note.
Comment:
GEN: No distress, awake, Ox3
HEENT: supple, anicteric, mmm
LUNGS: dec BS at bases
CV: irreg, S1/S2, 04/05 syst LSB, no gallop
ABD: soft, BS+, NT/ND
EXT: +1 edema
NEURO: Gross non-focal
SKIN: chronic stasis changes
Plan:
She has a past medical history of chronic A-fib, chronic diastolic heart failure, diabetes, lymphedema, cellulitis and obesity who presents with progressive acute on chronic heart failure with preserved ejection fraction, fatigue, shortness of
breath, and weight gain. She was given Toprol and then had a few 2-4 second pauses. She has noticed intermittent episodes of palpitations but is unclear whether this is from her A-fib. She has known edema with borderline cellulitis and this has
been worse recently.
Continue diuresis with IV Lasix. Her edema is likely multifactorial with venous stasis and lymphedema as well. Will try to remove as much fluid until creatinine worsens.
Will hold all beta-blockers for now. If she has tacky events off beta-miguel a therapy could consider permanent pacemaker. Will discuss with primary brass pourer.
Cardiac troponin is negative.
Will repeat echo.
Original Note:
Consultation
Consultation Request
Date/Time Consultation Performed: 09/25/23
Requesting Provider: Dr. Richardson
Performing Provider: Etelvina Harvey PA-C for Dr. Patel
Reason for Consultation: CHF, pauses
Medical History
-
Chief Complaint: palpitations, lightheadedness
History of Present Illness:
Patient is an 78 yo F with PMH of chronic atrial fibrillation on eliquis, history of PVI in 2012 and has failed multiple AAD therapies, chronic diastolic CHF, diabetes, lymphedema, SHAUN on CPAP who had been seen by PCP 09/16/23 for complaints of
increased LE edema. She had missed several lasix doses. She complained of palpitations and dizziness. She also had erythema of her L great toe and she was prescribed abx for cellulitis and told to follow up with cardiology. She was also ordered LE
US to r/o DVT which was supposed to take place yesterday however she continued to feel poorly so came to ER via EMS instead. She has history of pauses and bradycardia on BB in past and it was discontinued for this reason. At last cardiology office
visit 04/09/23, was restarted on PRN basis only for palpitations. She states over the last 6 weeks or so she has noted dyspnea on exertion/palpitations/dizziness with any activity causing her to stop to rest. She reports some chest tightness when
she feels her heart racing. She states she has taken Toprol multiple times over the last several weeks, however not on an every day basis. She states she is compliant with her Lasix, however breaks it up taking 40 mg every day at 11 AM and 20 mg
every day at 1:30 PM (supposed to take 60mg daily). Weight is up 14 pounds from 02/2023 admission if accurate. She has multiple small blisters on B/L feet which she states are new over the last several weeks. She was admitted and is being diuresed
with IV lasix. She took a dose of toprol yesterday morning and received a dose yesterday evening. Currently bradycardic in afib on tele, with HRs as low as 30s and 1 pause of 4.18 seconds, multiple <2.5 seconds. States she has been compliant with
eliquis. Cardiology consulted for evaluation.
PMH:
Chronic atrial fibrillation
Chronic OAC with eliquis
History of PVI 2012
Multiple failed AAD therapies
Chronic HFpEF
Diabetes
Chronic lymphedema
Chronic renal sufficiency
SHAUN on CPAP
Hypothyroidism
HTN
HLD
Obesity
Past Medical History
Past Medical History: Other (in HPI)
Social History
Tobacco: Non-Smoker
Alcohol: None
Family History
Family History: Cancer, Diabetes, Hypertension and Other (CHF)
Allergies / Home Medications
Allergy/AdvReac Type Severity Reaction Status Date / Time
adhesive tape Allergy Blistering Verified 09/24/23 17:28
metformin HCl Allergy Diarrhea Verified 09/24/23 17:28
[From Glucophage]
vancomycin Allergy Unknown Verified 09/24/23 17:28
�Medication �Instructions �Recorded �Confirmed �Type
atorvastatin 20 mg tablet 20 mg PO DAILY High cholesterol 11/27/11 09/24/23 History
levothyroxine 125 mcg tablet 125 mcg PO DAILY Thyroid 01/31/14 09/24/23 History
cholecalciferol (vitamin D3) 25 1,000 units PO DAILY Supplement ##0 10/27/20 09/24/23 History
mcg (1,000 unit) tablet
omeprazole 40 mg capsule,delayed 40 mg PO DAILY Gastrointestinal 02/05/21 09/24/23 History
release issue
apixaban 5 mg tablet (Eliquis) 5 mg PO BID Blood Clot 03/08/23 09/24/23 History
Prevention/Tx
cephalexin 500 mg capsule 500 mg PO QID 7 days #28 caps 03/11/23 09/24/23 Rx
fish, borage, flaxseed oils-omega 1 cap PO DAILY Supplement 09/24/23 09/24/23 History
3,6,9 comb no.1 1,200 mg capsule
([place] 3-6-9)
furosemide 40 mg tablet 60 mg PO DAILY Fluid 09/24/23 09/24/23 History
Retention/Swelling
gabapentin 100 mg capsule 100 mg PO HS Neurological Condition 09/24/23 09/24/23 History
insulin aspart 16 sliding scale dose SC AC 09/24/23 09/24/23 History
(niacinamide)(U-100) 100 unit/mL(3 Diabetes
mL) subcutaneous pen (Fiasp
FlexTouch U-100 Insulin)
insulin degludec 100 unit/mL (3 45 unit SC HS Diabetes 09/24/23 09/24/23 History
mL) subcutaneous pen (Tresiba
FlexTouch U-100 insulin)
metoprolol succinate 25 mg 25 mg PO BIDPRN PRN afib 09/24/23 09/24/23 History
tablet,extended release 24 hr
oxybutynin chloride 5 mg 5 mg PO DAILY Urinary Issue 09/24/23 09/24/23 History
tablet,extended release 24 hr
vitamins A,C,R-yofw-wvmjrh 2,148 1 tab PO DAILY Supplement 09/24/23 09/24/23 History
mcg-113 mg-45 mg-17.4 mg tablet
(PreserVision AREDS)
Review of Systems
-
History Source: Patient
All other systems: Negative unless noted
Physical Exam
Vital Signs
Temp Pulse Resp BP Pulse Ox
98.2 F 63 20 142/71 98
09/25/23 07:05 09/25/23 07:05 09/25/23 07:05 09/25/23 07:05 09/25/23 07:05
Lab Results
09/25/23 07:00
09/25/23 07:00
Troponin I < 0.012 ng/ml 09/24/23 08:46
Gwm-I-Urpbprmamhb Pept 1230 pg/ml 09/24/23 08:46
Impression / Plan
-
Primary Cinder Pitman: Dr. Casas
Assessment:
HARDEN
Palpitations
Lightheadedness
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
Acute on chronic HFpEF
Chronic atrial fibrillation
Chronic OAC with eliquis
History of PVI 2012
Multiple failed AAD therapies
Diabetes
Chronic lymphedema
Chronic renal insufficiency
SHAUN on CPAP
Hypothyroidism
HTN
HLD
Obesity
History of pauses on BB therapy in past
ECHO 03/10/2023: EF 55 to 60%, mild concentric LVH, mild to moderate MR, mild TR, A-fib during study
Plan:
-Patient presents with symptoms of lightheadedness, palpitations, dyspnea on exertion for the last 6 weeks
-complains of elevated HRs as OP however here HRs slow afib with pauses (longest 4.18 seconds however most <2.5 seconds).
-received 2 doses of 25mg toprol 09/23. hold further toprol and follow HR trends
-has been compliant with eliquis as OP
-check echo, last from 02/2023 with results as above
-trop negative x1. check 2nd trop
-continue diuresis with IV lasix 60mg BID, was taking 40mg at 11AM and 20mg at 1:30PM as OP (was supposed to be taking 60mg daily). Cr up slightly to 1.2, follow with diuresis
-CHF education
-LE US negative for DVT
-may need to consider for eventual PPM if confirmed to have tachybrady syndrome. will discuss with EP
-PT/OT as able
-d/w nursing
Data Reviewed
-
EKG: Tracing Personally Visualized and interpreted
Radiology: Report Reviewed by me
Ultrasound: Report Reviewed by me
Medical Tests (Nuc Med, Echo etc): Report Reviewed by me
Labs: Labs Reviewed by me
Old Records: Reviewed
[2023-09-25 10:26] LABS: Glycohemoglobin (HgbA1c) 7.1 % (4.0-5.6)
--- NOTE | 2023-09-25 10:50 | CARDSERVLU ---
Echocardiogram with [facility] completed after protocol screening completed. Allergies verified.
Patent IV site: _L AC____
IV site flushed with 0.9% NaCl pre and post administration.
Diluted bolus method utilized to enhance visualization of ventricular verma.
Total volume given: ___3.5_ mL
Patient tolerated all procedures well without complications.
--- NOTE | 2023-09-25 11:37 | W.PN.HOSP.TC ---
Addendum entered and electronically signed by Manuel Richardson MD 09/25/23 14:47:
Patient seen and examined
Discussed with resident
Discussed with nursing
IMPRESSION:
Presentation with exertional dyspnea, occasional palpitations and lightheadedness.
Acute CHF exacerbation preserved EF.
Conditions prior to admission:
Chronic CHF preserved EF.
Chronic lower extremity edema and stasis cellulitis
Permanent atrial fibrillation
Anticoagulation with Eliquis
Obstructive sleep apnea.
Obesity due to excessive calories.
IDDM
Essential hypertension
Dyslipidemia
Hypothyroidism on replacement
GERD.
PLAN:
Presents with gradually increasing exertional dyspnea, palpitations, chest heaviness and lightheadedness
Exam with not easy to assess volume status due to body habitus
Not hypoxic
Noted with gaining weight close to 14 pounds since last hospitalization with CHF on 03/22.
Elevated pro CHF BNP over the baseline
Chest x-ray with no infiltrates
Echocardiogram 03/22 with LVEF 55-60%, A-fib, mild to moderate MR, mild TR.
Update echocardiogram
She does have acute on chronic peripheral edema along with weight gain. Edema likely multifactorial given her BMI and venous stasis.
Continue attempt of IV diuresis with Lasix 60 mg IV twice daily. Monitor creatinine. Noted with climbing up to 1.2.
Permanent atrial fibrillation
She complains of palpitations with exertion
EKG with A-fib in 60s.
Patient has been on metoprolol at home as needed for palpitations. Received 2 doses since admission with now bradycardia and sinus pauses.
Hold further beta-blockers
Continue cardiac monitoring while optimizing volume status
Cardiology input appreciated
Continue anticoagulation with Eliquis
Obstructive sleep apnea
Continue BiPAP at night
Chronic left greater than right lower extremity edema
Chronic venous stasis dermatitis with no evidence of infection.
Lower extremity Doppler negative for DVT
Hopeful improved with diuresis.
IDDM.
Hemoglobin A1c 7.1
Noted with episode of hypoglycemia
Carbohydrate controlled diet.
Hold AC insulin. Continue Lantus monitoring for recurrent hypoglycemia.
Hypothyroidism
Continue levothyroxine
DVT prophylaxis/Eliquis
Full code
Original Note:
Today's Communication/Plan
-
- Repeat echocardiogram today.
- Hold metoprolol.
- IV furosemide.
- Check weight, I&O and BMP.
Assessment / Plan
Assessment / Plan
Assessment
Haydee Whitney, age 78, came to the hospital on 09-24-23 with weeks of gradually increasing exertional dyspnea, currently with even minimal exertion such as changing clothes and bathing. Patient complains of chest heaviness with exertion but denies
pain. She noticed gaining of weight. She admits to significant lightheadedness and occasional palpitations with exertion. She denies any fever or chills. She has been compliant with oral diuretic regimen as well as BiPAP at night.
Impression
* Acute on chronic heart failure with preserved ejection fraction
* Bradycardia with pauses/Tachy-Kenneth syndrome
* Permanent atrial fibrillation
* Obstructive sleep apnea
* Morbid obesity
* Type II diabetes mellitus
* Essential hypertension
* Hyperlipidemia
* Hypothyroidism
* Gastroesophageal reflux disease
* Chronic lymphedema
Plan
Acute on chronic heart failure with preserved ejection fraction
- Difficult to assess volume status due to body habitus
- Has not been hypoxic; respiratory exam unremarkable
- Weight gain of about 14 lbs since at least February 2023.
- pro-BNP elevated at 1230 on 09-24-23.
- Echocardiogram 03/22 with LVEF 55-60%, A-fib, mild to moderate MR, mild TR.
- Update echocardiogram today.
- Cardiology following.
- IV furosemide 60 mg BID.
- Check daily weights, I&Os and BMP.
Bradycardia with pauses/Tachy-Kenneth syndrome
- Occasional palpitations with exertion.
- Could be contributing to/causing her intermittent lightheadedness and dizziness.
- Bradycardic after receiving metoprolol 25 mg yesterday; will hold for now.
- If she has tacky events off beta-miguel a therapy could consider permanent pacemaker, per cardiology.
Permanent atrial fibrillation
- Bradycardia after getting metoprolol yesterday; held for now.
- On apixaban.
Obstructive sleep apnea
- Continue using C-PAP at bedtime.
Morbid obesity
Type II diabetes mellitus
- HbA1c 7.1 on 09-25-23.
- Carbohydrate controlled diet.
- Continue preadmission insulin dosing.
Essential hypertension
- Hold metoprolol
Hyperlipidemia
- Continue atorvastatin.
Hypothyroidism
- Continue levothyroxine.
Gastroesophageal reflux disease
- On pantoprazole.
Chronic lymphedema
- Keep legs elevated.
DVT prophylaxis
- On apixaban.
Code status
- Full.
Anticipated Discharge: Within 24 hours
Subjective/Interval History
-
Date of Service: September 25, 2023
Objective Data
-
Labs:
Laboratory Results
09/25/23
07:00
WBC 6.4
Hgb 11.0 L
Hct 34.0 L
Plt Count 163
Sodium 143
Potassium 4.1
Chloride 106
Carbon Dioxide 32 H
BUN 36 H
Creatinine 1.2 H
Glucose 105 H
Calcium 9.8
Vital Signs:
Vital Signs
Temp Pulse Resp BP Pulse Ox
98.2 F 63 20 142/71 98
09/25/23 07:05 09/25/23 07:05 09/25/23 07:05 09/25/23 07:05 09/25/23 07:05
I&O
09/24/23 09/25/23 09/26/23
06:59 06:59 06:59
Intake Total 780 / 780
Output Total 1850 / 185
Balance -1070 / -1070
Review of Systems
-
History Source: Patient
Constitutional: Reports Weight Gain and Fatigue
EENT: Reports No Symptoms Reported
Respiratory: Reports Other (exertional dyspnea; improved from yesterday)
Cardiac: Reports No Symptoms
Abdomen/GI: Reports No Symptoms
Genitourinary: Reports No Symptoms
Musculoskeletal: Reports No Symptoms
Skin: Reports Rash (bilateral lower extremity)
Neuro: Reports No Symptoms
Endocrine: Reports No Symptoms
Hematologic / Lymphatic: Reports No Symptoms
Allergy / Immunology: Reports No Symptoms
Physical Exam
-
General: No Apparent Distress and Comfortable
HEENT: Normocephalic, Atraumatic, Moist Mucous Membranes, Anicteric and No Ptosis
Respiratory: Clear to Auscultation and Non Labored Respirations
Cardiac: Regular Rhythm and S1/S2
Breast: Deferred by me
GI: Soft, Nontender and Nondistended
Rectal: Deferred by Provider
Genito-urinary: No Costovertebral Tender
Musculoskeletal: No Clubbing, No Cyanosis, Edema, Right Upper Extrem (1+), Edema, Left Upper Extrem (1+), Edema, Right Lower Extrem (2+) and Edema, Left Lower Extrem (2+)
Skin: Warm, Dry, Rash (bilateral lower extremity) and IV Access / Catheter Site
Neuro: Awake, Alert, Oriented and Nonfocal/Grossly Intact
Psych: Calm
[2023-09-25 12:11] LABS: Glucose - Point of Care 244 mg/dl (70-99)
[2023-09-25] MEDS: NOVOLOG FLEXPEN-LOW RESISTANCE 2 UNITS SC ×2 (12:16→16:53)
[2023-09-25 12:57] LABS: Troponin I < 0.012 ng/ml
[2023-09-25 13:15] LABS: TSH Reflex To Free T4 2.63 uIU/ml (0.47-4.68)
--- NOTE | 2023-09-25 14:30 | PTCARENOTE ---
Pt ambulating with PT in hallway, HR 120s-140s, back in 70s once at rest, cards made aware. plan of care ongoing.
[2023-09-25 16:31] LABS: Glucose - Point of Care 222 mg/dl (70-99)
[2023-09-25 19:44] LABS: Glucose - Point of Care 274 mg/dl (70-99)
--- NOTE | 2023-09-25 20:15 | PTCARENOTE ---
Pt up to the commode and HR went up to the 140s Afib did not sustain, but she felt dizzy and like she was going to pass out. Pt became very anxious and was able to be calmed down. During the episode she said she felt CP in her epigastric region. It
has now completely resolved. VSS T 98.2 HR 65 BP 153/86 pox 99% RA. Pt requesting BG be checked = 274. HEALTHCARE FINANCIAL ANALYST made aware. Kailey placed
[2023-09-25 21:12] LABS: Glucose - Point of Care 248 mg/dl (70-99)
[2023-09-25] MEDS: NEURONTIN 100 MG PO (21:26)
[2023-09-25] MEDS: LANTUS 0.450000000000000011 UNITS SC (21:26)
[2023-09-26 03:27] VITALS: BP 127/65
[2023-09-26] MEDS: SYNTHROID 125 MCG PO (05:25)
[2023-09-26 06:00] VITALS: BMI 44.7
[2023-09-26 07:01] LABS: Glucose - Point of Care 108 mg/dl (70-99)
[2023-09-26 07:05] VITALS: BP 151/64
[2023-09-26 07:57] LABS: Blood Urea Nitrogen 41 mg/dl (7-17); Calcium 10.2 mg/dl (8.4-10.2); Carbon Dioxide 34 mmol/L (22-30); Chloride 102 mmol/L (98-107); Estimated Creatinine Clearance 50 ml/min; Glucose 107 mg/dl (70-99); Potassium 3.6 mmol/L (3.5-5.1); Sodium 142 mmol/L (135-145); eGFR 41.57
[2023-09-26] MEDS: NOVOLOG FLEXPEN-LOW RESISTANCE SC ×2 (08:56→12:08)
[2023-09-26] MEDS: PROTONIX 40 MG PO (08:57)
[2023-09-26] MEDS: DITROPAN 2.5 MG PO ×2 (08:57→20:09)
[2023-09-26] MEDS: OCUVITE SOFTGEL 1 CAP PO (08:57)
[2023-09-26] MEDS: LIPITOR 20 MG PO (08:57)
[2023-09-26] MEDS: LASIX 60 MG IV ×2 (08:57→16:47)
[2023-09-26] MEDS: VITAMIN D3 (cholecalciferol) 25 MCG PO (08:59)
[2023-09-26] MEDS: ELIQUIS 5 MG PO ×2 (08:59→20:10)
--- NOTE | 2023-09-26 09:01 | W.PN.CARDCBS ---
Addendum entered and electronically signed by Omkar Pfeiffer MD 09/26/23 11:12:
Patient states her breathing is better.
PMH/PSH/SH/FH: Reviewed
Allergies: Metformin and vancomycin
Outpatient cardiac meds: Atorvastatin 20 mg a day, Eliquis 5 mg twice daily, furosemide 60 mg daily, Metoprolol ER 25 mg p.o. twice daily as needed
Current medications: Apixaban 5 mg twice daily, atorvastatin 20 mg a day, levothyroxine, furosemide 60 mg IV twice daily, metoprolol ER 12.5 mg daily
ROS negative except as above
138/66, pulse 72, respirate 16, afebrile, sats 99%, intake and output -1.8 L, weight is 133.4 kg, down 2.3 kg, was 140.9 kg on admission
No acute distress, morbidly obese, head neck exam unremarkable, lungs are relatively clear, JVD difficult to assess but probably still elevated, irregular rate and rhythm, no obvious murmurs, lymphedema, neuro nonfocal
Echo 09/25/2023: LVH, EF 67%, normal RV, mildly dilated left atrium mild MR
BUN/creatinine 41 and 1.3, potassium 3.9
Impression: See below
Plan:
Permanent atrial fibrillation: She remains in atrial fibrillation with a slow ventricular response at rest but with elevated heart rates with very limited ambulation. Beta-blockers have been held. However it may be necessary to restart to provide
rate control with activity. Will try metoprolol ER 12.5 mg daily and monitor for recurrent pauses. It may well be that she needs pacemaker implantation to permit adequate rate control of atrial fibrillation. She will be assessed by Dr. Casas
through the weekend.
Acute on chronic HFpEF: I think she is still volume overloaded, would continue IV furosemide. At present, renal function remains at acceptable. With regards to HFpEF, will investigate cost of SGLT2 antagonist. However bladder issues may preclude
use. She has CKD 3B so at present we will not start spironolactone. Overall, her echo is reassuring.
Original Note:
Today's Communication / Plan
-
continue IV lasix
follow Cr
respiratory to check CPAP settings
toprol 12.5mg daily - follow HR trends
Impression / Plan
-
Primary Law Firm Receptionist: Dr. Casas
Assessment:
HARDEN
Palpitations
Lightheadedness
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
Acute on chronic HFpEF
Chronic atrial fibrillation
Chronic OAC with eliquis
History of PVI 2012
Multiple failed AAD therapies
Diabetes
Chronic lymphedema
Chronic renal insufficiency
SHAUN on CPAP
Hypothyroidism
HTN
HLD
Obesity
History of pauses on BB therapy in past
ECHO 03/10/2023: EF 55 to 60%, mild concentric LVH, mild to moderate MR, mild TR, A-fib during study
ECHO 09/25/23: EF 67%, mild cLVH, mild MR, mild MI, no significant change compared to prior
Plan:
-Patient presented with symptoms of lightheadedness, palpitations, dyspnea on exertion for the last 6 weeks
-she is diuresing well on IV lasix. weight down 8 pounds from admission if accurate. Cr trending up to 1.3, continue to monitor closely in setting of diuresis. volume status difficult to determine
-was taking lasix 40mg at 11AM and 20mg at 1:30PM as OP (was supposed to be taking 60mg daily)
-she does have evidence of some tachybrady syndrome on review of tele. when bradycardic, has some brief pauses, all less than 2.5 seconds. most of these seem to be overnight. states she is compliant with CPAP, consider respiratory eval to ensure
correct CPAP settings
-she states her symptoms appear to be improving with diuresis. overall HR trends ok.
-d/w EP, will plan to resume toprol at lower dose of 12.5mg daily. hopefully can avoid PPM placement
-has been compliant with eliquis as OP
-echo with results as above
-trop negative x2
-CHF education
-LE US negative for DVT
-PT/OT as able
-d/w nursing
Progress Note - Law Firm Receptionist
Subjective
Date of Service: September 26, 2023
reports good urine output with IV lasix. reports was able to ambulate with less symptoms today
Objective
Labs:
09/25/23 07:00
09/26/23 07:15
Labs
Hgb 11.0 g/dL (12.0-16.0) L 09/25/23 07:00
Hct 34.0 % (37.0-47.0) L 09/25/23 07:00
Plt Count 163 10^3/uL (130-400) 09/25/23 07:00
Sodium 142 mmol/L (135-145) 09/26/23 07:15
Potassium 3.6 mmol/L (3.5-5.1) 09/26/23 07:15
BUN 41 mg/dl (7-17) H 09/26/23 07:15
Creatinine 1.3 mg/dL (0.6-1.0) H 09/26/23 07:15
Glucose 107 mg/dl (70-99) H 09/26/23 07:15
Troponins
09/24/23 09/25/23
08:46 12:19
Troponin I < 0.012 < 0.012
Vital Signs and I&O:
Vital Signs
Temp Pulse Resp BP Pulse Ox
98.7 F 76 20 127/65 97
09/26/23 03:27 09/26/23 03:27 09/26/23 03:27 09/26/23 03:27 09/26/23 03:27
Vital Signs
Temp Pulse Resp BP Pulse Ox
98.7 F 76 20 127/65 97
09/26/23 03:27 09/26/23 03:27 09/26/23 03:27 09/26/23 03:27 09/26/23 03:27
Intake & Output
09/24/23 09/25/23 09/26/23 09/27/23
07:59 07:59 07:59 07:59
Intake Total 780 / 780 1260 / 1260
Output Total 1850 / 1850 3050 / 3050
Balance -1070 / -1070 -1790 / -1790
Physical Exam
Physical Exam
GEN: No distress, awake, alert, oriented x3. obese
HEENT: supple, anicteric, mmm, eomi
LUNGS: CTA anterolaterally B/L, no wheezes
CV: Irreg, S1/S2, no murmur
ABD: soft, BS+, NT/ND
EXT: No cyanosis, clubbing. 1+ edema of B/L LE
NEURO: Gross non-focal
SKIN: Warm, pink, dry. No rash
[2023-09-26] MEDS: TOPROL XL 12.5 MG PO (10:34)
--- NOTE | 2023-09-26 11:07 | W.PN.HOSP.TC ---
Addendum entered and electronically signed by Manuel Richardson MD 09/26/23 15:25:
Patient seen and examined
Discussed with resident
Discussed with nursing
IMPRESSION:
Presentation with exertional dyspnea, occasional palpitations and lightheadedness.
Acute CHF exacerbation preserved EF.
Conditions prior to admission:
Chronic CHF preserved EF.
Chronic lower extremity edema and stasis cellulitis
Permanent atrial fibrillation
Anticoagulation with Eliquis
Obstructive sleep apnea.
Obesity due to excessive calories.
IDDM
Essential hypertension
Dyslipidemia
Hypothyroidism on replacement
GERD.
PLAN:
Presents with gradually increasing exertional dyspnea, palpitations, chest heaviness and lightheadedness
Exam with not easy to assess volume status due to body habitus
Not hypoxic
Noted with gaining weight close to 14 pounds since last hospitalization with CHF on 03/22.
Elevated pro CHF BNP over the baseline
Chest x-ray with no infiltrates
Echocardiogram 03/22 with LVEF 55-60%, A-fib, mild to moderate MR, mild TR.
Updated echocardiogram with no significant change
She does have acute on chronic peripheral edema along with weight gain. Edema likely multifactorial given her BMI and venous stasis.
Dyspnea significantly improved with diuresis and her weight is close to her baseline 130 kg
Noted bump in creatinine, although overall renal function acceptable in patient with CKD stage IIIa�B
Would consider to transition to oral Lasix on 09/26.
Permanent atrial fibrillation
She complains of palpitations with exertion
EKG with A-fib in 60s.
Patient has been on metoprolol at home as needed for palpitations. Received 2 doses since admission with now bradycardia and sinus pauses.
Attempt to reintroduce beta-miguel a at a lower dose today on 09/25. Monitor closely. If recurrent pauses, may require pacemaker implantation.
Cardiology input appreciated
Continue anticoagulation with Eliquis
Persistent lightheadedness, no evidence of focal neurologic findings.
Check orthostatic vitals.
Obstructive sleep apnea
Continue BiPAP at night
Chronic left greater than right lower extremity edema
Chronic venous stasis dermatitis with no evidence of infection.
Lower extremity Doppler negative for DVT
Hopeful improved with diuresis.
IDDM.
Hemoglobin A1c 7.1
Noted with episode of hypoglycemia
Carbohydrate controlled diet.
Hold AC insulin. Continue Lantus monitoring for recurrent hypoglycemia.
Hypothyroidism
Continue levothyroxine
DVT prophylaxis/Eliquis
Full code
Original Note:
Today's Communication/Plan
-
* Metoprolol 12.5 mg daily; monitor for pauses.
* Check orthostatic vitals.
* IV diuresis.
* Follow daily weights, I&O and BMP.
Assessment / Plan
Assessment / Plan
Assessment
Haydee Whitney, age 78, came to the hospital on 09-24-23 with weeks of gradually increasing exertional dyspnea, currently with even minimal exertion such as changing clothes and bathing. Patient complains of chest heaviness with exertion but denies
pain. She noticed gaining of weight. She admits to significant lightheadedness and occasional palpitations with exertion. She denies any fever or chills. She has been compliant with oral diuretic regimen as well as BiPAP at night.
Impression
* Acute on chronic heart failure with preserved ejection fraction
* Lightheadedness
* Permanent atrial fibrillation
* Bradycardia with pauses/Tachy-Kenneth syndrome
* Obstructive sleep apnea
* Morbid obesity
* Type II diabetes mellitus
* Essential hypertension
* Hyperlipidemia
* Hypothyroidism
* Gastroesophageal reflux disease
* Chronic lymphedema
Plan
Acute on chronic heart failure with preserved ejection fraction
- Difficult to assess volume status due to body habitus
- Has not been hypoxic; respiratory exam unremarkable
- Weight gain of about 14 lbs since at least February 2023.
- pro-BNP elevated at 1230 on 09-24-23.
- Echocardiogram 03/22 with LVEF 55-60%, A-fib, mild to moderate MR, mild TR.
- Update echocardiogram on 09-25-23 was unchanged.
- Cardiology following.
- IV furosemide 60 mg BID.
- Check daily weights, I&Os and BMP.
Lightheadedness
- Has experienced progressively worsening lightheadedness for the past few months.
- Possibly multifactorial in setting of volume overload, afrib, pauses with bradycardia, using metoprolol.
- Experienced lightheadedness this morning a 15-20 minutes after taking metoprolol 12.5 mg; 'felt like I will fall off this chair'.
- Will check orthostatic vitals.
Permanent atrial fibrillation
Bradycardia with pauses/Tachy-Kenneth syndrome
- Occasional palpitations with exertion over the past few months.
- Could be contributing to/causing her intermittent lightheadedness and dizziness, which got worse starting this year.
- Bradycardic after receiving metoprolol 25 mg on 09-24-23; was held for a day.
- Re-introduced with 12.5 mg on 09-26-23, per cardiology; monitor for recurrent pauses.
- If the pauses return and persist, she will likely require a pacemaker.
- On apixaban.
Obstructive sleep apnea
- Continue using C-PAP at bedtime.
Chronic kidney disease, stage IIIa
- Renal function slightly worsened with continued diuresis.
- Will consider adding an SGLT2 inhibitor.
- Monitor BMP.
Morbid obesity
Type II diabetes mellitus
- HbA1c 7.1 on 09-25-23.
- Carbohydrate controlled diet.
- Continue preadmission insulin dosing.
Essential hypertension
- Hold metoprolol
Hyperlipidemia
- Continue atorvastatin.
Hypothyroidism
- Continue levothyroxine.
Gastroesophageal reflux disease
- On pantoprazole.
Chronic lymphedema
- Keep legs elevated.
DVT prophylaxis
- On apixaban.
Code status
- Full.
Anticipated Discharge: 24 - 48 hours
Subjective/Interval History
-
Date of Service: September 26, 2023
Objective Data
-
Labs:
Laboratory Results
09/26/23
07:15
Sodium 142
Potassium 3.6
Chloride 102
Carbon Dioxide 34 H
BUN 41 H
Creatinine 1.3 H
Glucose 107 H
Calcium 10.2
Vital Signs:
Vital Signs
Temp Pulse Resp BP Pulse Ox
97.4 F 72 16 138/66 99
09/26/23 07:05 09/26/23 10:34 09/26/23 07:05 09/26/23 10:34 09/26/23 07:05
I&O
09/25/23 09/26/23 09/27/23
06:59 06:59 06:59
Intake Total 780 / 780 1260 / 1260
Output Total 1850 / 1850 3050 / 3050
Balance -1070 / -1070 -1790 / -1790
Review of Systems
-
History Source: Patient
Constitutional: Reports Fatigue (improved)
EENT: Reports No Symptoms Reported
Respiratory: Reports Other (exertional dyspnea; significantly improved)
Cardiac: Reports No Symptoms
Abdomen/GI: Reports No Symptoms
Genitourinary: Reports No Symptoms
Musculoskeletal: Reports No Symptoms
Skin: Reports Rash (bilateral lower extremity)
Neuro: Reports No Symptoms
Endocrine: Reports No Symptoms
Hematologic / Lymphatic: Reports No Symptoms
Allergy / Immunology: Reports No Symptoms
Physical Exam
-
General: No Apparent Distress and Comfortable
HEENT: Normocephalic, Atraumatic, Moist Mucous Membranes, Anicteric and No Ptosis
Respiratory: Clear to Auscultation and Non Labored Respirations
Cardiac: Regular Rhythm and S1/S2
Breast: Deferred by me
GI: Soft, Nontender and Nondistended
Rectal: Deferred by Provider
Genito-urinary: No Costovertebral Tender
Musculoskeletal: No Clubbing, No Cyanosis, Edema, Right Upper Extrem (1+), Edema, Left Upper Extrem (1+), Edema, Right Lower Extrem (2+) and Edema, Left Lower Extrem (2+)
Skin: Warm, Dry, Rash (bilateral lower extremity) and IV Access / Catheter Site
Neuro: Awake, Alert, Oriented and Nonfocal/Grossly Intact
Psych: Calm
[2023-09-26 11:27] LABS: Glucose - Point of Care 174 mg/dl (70-99)
--- NOTE | 2023-09-26 11:45 | CM ---
Haydee lives at [facility], [facility]. She manages well in her apartment and has supportive family who assist with transportation and groceries. The community also pulls together to help their neighbors during illness. Haydee
is known to [facility] and will likely resume services at discharge.
Plan: Discharge to home with [facility]. Family will provide transportation home.
--- NOTE | 2023-09-26 12:27 | PTCARENOTE ---
Patient restarted on low dose of metop this shift- 12.5mg. This dose was given around 1030 am, patient HR dropped into 30's around 12:30. Cards LABOR ECONOMICS TEACHER notified through TT. Pt HR recovered instantly and she was asymptomatic.
[2023-09-26 14:43] VITALS: PULSE 72; O2SAT 95
--- NOTE | 2023-09-26 14:49 | PTCARENOTE ---
Patient out of bed in chair for meals. Pt endorsed dizziness on standing/transferring. Pt is extremely anxious to move/ambulate, RN keeps reinforcing confidence in patient that staff is here to help her ambulate and move and that her heart rhythm
and rate is being monitored continuously.
[2023-09-26 15:05] VITALS: BP 135/72
--- NOTE | 2023-09-26 15:33 | VNURNOTE ---
Home Health Liaison met with patient at 1445 to discuss [facility] nurse/therapy, visits, schedule and homebound status. Patient is agreeable and understands that visits at home will be 2-3 x per week to assess and teach medical management. Patient has a
scale and is able to log a daily weight.
[facility] brochure provided with contact information. Patient is aware that [facility] will contact her for start of care in 1-2 days after discharge from .
[facility] referral completed in [facility].
[2023-09-26 16:31] LABS: Glucose - Point of Care 262 mg/dl (70-99)
[2023-09-26] MEDS: NOVOLOG FLEXPEN-LOW RESISTANCE 3 UNITS SC (16:48)
--- NOTE | 2023-09-26 16:54 | PTCARENOTE ---
unable to obtain orthostatic VS as patient is back in bed and is fearful of moving up and down again. Pt continues to have anxiety about ambulation because she feels instantly dizzy and it scares her.
[2023-09-26 19:59] VITALS: BP 145/66
[2023-09-26 21:40] LABS: Glucose - Point of Care 260 mg/dl (70-99)
[2023-09-26] MEDS: LANTUS 0.450000000000000011 UNITS SC (22:29)
[2023-09-26] MEDS: NEURONTIN 100 MG PO (22:29)
[2023-09-26 23:50] VITALS: BP 129/56
[2023-09-27 03:39] VITALS: BP 119/69
[2023-09-27] MEDS: SYNTHROID 125 MCG PO (05:38)
[2023-09-27 05:47] VITALS: BMI 44.5
[2023-09-27 07:05] VITALS: BP 144/69
[2023-09-27 07:46] LABS: Blood Urea Nitrogen 45 mg/dl (7-17); Calcium 10.4 mg/dl (8.4-10.2); Carbon Dioxide 33 mmol/L (22-30); Chloride 101 mmol/L (98-107); Estimated Creatinine Clearance 46 ml/min; Glucose 152 mg/dl (70-99); Potassium 3.9 mmol/L (3.5-5.1); Sodium 142 mmol/L (135-145); eGFR 38.03
[2023-09-27 07:52] LABS: Glucose - Point of Care 140 mg/dl (70-99)
[2023-09-27] MEDS: NOVOLOG FLEXPEN-LOW RESISTANCE SC (08:32)
[2023-09-27] MEDS: ELIQUIS 5 MG PO ×2 (09:26→20:35)
[2023-09-27] MEDS: LASIX 60 MG IV (09:26)
[2023-09-27] MEDS: DITROPAN 2.5 MG PO ×2 (09:26→20:35)
[2023-09-27] MEDS: PROTONIX 40 MG PO (09:27)
[2023-09-27] MEDS: TOPROL XL 12.5 MG PO (09:27)
[2023-09-27] MEDS: LIPITOR 20 MG PO (09:27)
[2023-09-27] MEDS: OCUVITE SOFTGEL 1 CAP PO (09:27)
[2023-09-27] MEDS: FLUSH (NSS) 1 FLUSH IV (09:28)
[2023-09-27] MEDS: VITAMIN D3 (cholecalciferol) 25 MCG PO (09:28)
--- NOTE | 2023-09-27 09:33 | W.PN.CARDCBS ---
Today's Communication / Plan
-
Changed to p.o. Lasix
No current indication for pacing
Will follow daily
Oral anticoagulation continue
Impression / Plan
-
Primary Cardio Tech: Dr. Casas
Assessment:
HARDEN
Palpitations
Lightheadedness
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
Acute on chronic HFpEF
Chronic atrial fibrillation
Chronic OAC with eliquis
History of PVI 2012
Multiple failed AAD therapies
Diabetes
Chronic lymphedema
Chronic renal insufficiency
SHAUN on CPAP
Hypothyroidism
HTN
HLD
Obesity
History of pauses on BB therapy in past
ECHO 03/10/2023: EF 55 to 60%, mild concentric LVH, mild to moderate MR, mild TR, A-fib during study
ECHO 09/25/23: EF 67%, mild cLVH, mild MR, mild [place], no significant change compared to prior
Plan:
-She has been diuresing well on IV Lasix. Her BUN and creatinine are creeping up and would change her to p.o. Lasix 60 mg p.o. twice daily on 09/26
-was taking lasix 40mg at 11AM and 20mg at 1:30PM as OP (was supposed to be taking 60mg daily)
-she does have evidence of some tachybrady syndrome on review of tele. when bradycardic, has some brief pauses, all less than 2.5 seconds. most of these seem to be overnight. states she is compliant with CPAP, consider respiratory eval to ensure
correct CPAP settings. I do not think these short pauses are primarily responsible for her symptoms of dizziness. There is no current indication for pacing and she is tolerating her metoprolol at low-dose. I plan to see her November 13 in the
office and if she has ongoing symptoms we can consider a single-chamber pacemaker implant. She is at somewhat higher risk given her elevated BMI.
-she states her symptoms appear to be improving with diuresis. overall HR trends ok.
-Continue oral anticoagulation
-echo with results as above
-trop negative x2
-CHF education
-LE US negative for DVT
-PT/OT as able
-d/w nursing
Progress Note - Cardio Tech
Subjective
Date of Service: September 27, 2023
Total Time Spent with Patient (in minutes): Feels better
Objective
Labs:
09/25/23 07:00
09/27/23 07:04
Labs
Hgb 11.0 g/dL (12.0-16.0) L 09/25/23 07:00
Hct 34.0 % (37.0-47.0) L 09/25/23 07:00
Plt Count 163 10^3/uL (130-400) 09/25/23 07:00
Sodium 142 mmol/L (135-145) 09/27/23 07:04
Potassium 3.9 mmol/L (3.5-5.1) 09/27/23 07:04
BUN 45 mg/dl (7-17) H 09/27/23 07:04
Creatinine 1.4 mg/dL (0.6-1.0) H 09/27/23 07:04
Glucose 152 mg/dl (70-99) H 09/27/23 07:04
Troponins
09/25/23
12:19
Troponin I < 0.012
Vital Signs and I&O:
Vital Signs
Temp Pulse Resp BP Pulse Ox
98.2 F 72 14 144/69 96
09/27/23 07:05 09/27/23 09:26 09/27/23 07:05 09/27/23 09:26 09/27/23 07:05
Vital Signs
Temp Pulse Resp BP Pulse Ox
98.2 F 72 14 144/69 96
09/27/23 07:05 09/27/23 09:26 09/27/23 07:05 09/27/23 09:26 09/27/23 07:05
Intake & Output
09/25/23 09/26/23 09/27/23 09/28/23
06:59 06:59 06:59 06:59
Intake Total 780 / 780 1260 / 1260 1080 / 1080
Output Total 1850 / 1850 3050 / 3050 1800 / 1800
Balance -1070 / -1070 -1790 / -1790 -720 / -720
Physical Exam
Physical Exam
�
����Physical Exam
�
��������������������General:� no apparent distress, not acutely ill
�
��������������������������Neck:� supple. no meningeal signs. normal psoterior pharynx
������������������������
���������������������������Heart:� s1/s2 irregular rate and rhythm, no murmur. equal radial pulses.
�
��������������������������Lungs:�� no acute respiratory distress. clear bilaterally
�
����������������������Abdomen:normal bowel sounds. not tender. no CVAT
�
��������������������������Neuro:� alert and oriented. no focal neurological deficits
�
������������������������������Skin:�� no rash
�
�����������������������Psychiatric:well kept. interactive and cooperative
�
����������������������Extremities:� no edema. no calf tenderness. negative homans. good distal pulses
�
�
�
��
�
[2023-09-27 11:19] VITALS: BP 139/69
[2023-09-27 11:34] LABS: Glucose - Point of Care 208 mg/dl (70-99)
[2023-09-27] MEDS: NOVOLOG FLEXPEN-LOW RESISTANCE 2 UNITS SC ×2 (13:07→18:09)
--- NOTE | 2023-09-27 13:56 | W.PN.HOSP.TC ---
Today's Communication/Plan
-
reevaluate on oral Lasix
Assessment / Plan
Assessment / Plan
Assessment
Haydee Whitney, age 78, came to the hospital on 09-24-23 with weeks of gradually increasing exertional dyspnea, currently with even minimal exertion such as changing clothes and bathing. Patient complains of chest heaviness with exertion but denies
pain. She noticed gaining of weight. She admits to significant lightheadedness and occasional palpitations with exertion. She denies any fever or chills. She has been compliant with oral diuretic regimen as well as BiPAP at night.
wt140.9-->132.6kg
(wt was 13.8 on 03/11)
cardio changed to oral Lasix
Impression
* Acute on chronic heart failure with preserved ejection fraction
* Lightheadedness
* Permanent atrial fibrillation
on Eliquis 5 mg bid
* Bradycardia with pauses/Tachy-Kenneth syndrome
* Obstructive sleep apnea
* Morbid obesity
* Type II diabetes mellitus
* Essential hypertension
* Hyperlipidemia
* Hypothyroidism
* Gastroesophageal reflux disease
* Chronic lymphedema
Plan
Acute on chronic heart failure with preserved ejection fraction
- Difficult to assess volume status due to body habitus
- Has not been hypoxic; respiratory exam unremarkable
- Weight gain of about 14 lbs since at least February 2023.
- pro-BNP elevated at 1230 on 09-24-23.
BUN/Creat 36/1.1-->45/1.4
- Echocardiogram 03/22 with LVEF 55-60%, A-fib, mild to moderate MR, mild TR.
- Update echocardiogram on 09-25-23 was unchanged.
- Cardiology following.
Lightheadedness
- Has experienced progressively worsening lightheadedness for the past few months.
- Possibly multifactorial in setting of volume overload, afrib, pauses with bradycardia, using metoprolol.
- Experienced lightheadedness this morning a 15-20 minutes after taking metoprolol 12.5 mg; 'felt like I will fall off this chair'.
- Will check orthostatic vitals.
Permanent atrial fibrillation
Bradycardia with pauses/Tachy-Kenneth syndrome
- Occasional palpitations with exertion over the past few months.
- Could be contributing to/causing her intermittent lightheadedness and dizziness, which got worse starting this year.
- Bradycardic after receiving metoprolol 25 mg on 09-24-23; was held for a day.
- Re-introduced with 12.5 mg on 09-26-23, per cardiology; monitor for recurrent pauses.
- If the pauses return and persist, she will likely require a pacemaker.
- On apixaban.
Obstructive sleep apnea
- Continue using C-PAP at bedtime.
Chronic kidney disease, stage IIIa
- Renal function slightly worsened with continued diuresis.
- Will consider adding an SGLT2 inhibitor.
- Monitor BMP.
Morbid obesity
Type II diabetes mellitus
- HbA1c 7.1 on 09-25-23.
- Carbohydrate controlled diet.
- Continue preadmission insulin dosing.
Essential hypertension
- Hold metoprolol
Hyperlipidemia
- Continue atorvastatin.
Hypothyroidism
- Continue levothyroxine.
Gastroesophageal reflux disease
- On pantoprazole.
Chronic lymphedema
- Keep legs elevated.
DVT prophylaxis
- On apixaban.
Code status
- Full.
Anticipated Discharge: 24 - 48 hours
Subjective/Interval History
-
Date of Service: September 27, 2023
Awake, alert, conversant
Objective Data
-
Labs:
Laboratory Results
09/27/23
07:04
Sodium 142
Potassium 3.9
Chloride 101
Carbon Dioxide 33 H
BUN 45 H
Creatinine 1.4 H
Glucose 152 H
Calcium 10.4 H
Vital Signs:
Vital Signs
Temp Pulse Resp BP Pulse Ox
97.5 F 68 14 139/69 97
09/27/23 11:19 09/27/23 11:19 09/27/23 11:19 09/27/23 11:19 09/27/23 11:19
I&O
09/26/23 09/27/23 09/28/23
06:59 06:59 06:59
Intake Total 1260 / 1260 1080 / 1080
Output Total 3050 / 3050 1800 / 1800
Balance -1790 / -1790 -720 / -720
Review of Systems
-
History Source: Patient
Constitutional: Reports Fatigue (improved)
EENT: Reports No Symptoms Reported
Respiratory: Reports Other (exertional dyspnea; significantly improved)
Cardiac: Reports No Symptoms
Abdomen/GI: Reports No Symptoms
Genitourinary: Reports No Symptoms
Musculoskeletal: Reports No Symptoms
Skin: Reports Rash (bilateral lower extremity)
Neuro: Reports No Symptoms
Endocrine: Reports No Symptoms
Hematologic / Lymphatic: Reports No Symptoms
Allergy / Immunology: Reports No Symptoms
Physical Exam
-
General: No Apparent Distress and Comfortable
HEENT: Normocephalic, Atraumatic, Moist Mucous Membranes, Anicteric and No Ptosis
Respiratory: Clear to Auscultation and Non Labored Respirations
Cardiac: Regular Rhythm and S1/S2
Breast: Deferred by me
GI: Soft, Nontender and Nondistended
Rectal: Deferred by Provider
Genito-urinary: No Costovertebral Tender
Musculoskeletal: No Clubbing, No Cyanosis, Edema, Right Upper Extrem (1+), Edema, Left Upper Extrem (1+), Edema, Right Lower Extrem (2+) and Edema, Left Lower Extrem (2+)
Skin: Warm, Dry, Rash (bilateral lower extremity) and IV Access / Catheter Site
Neuro: Awake, Alert, Oriented and Nonfocal/Grossly Intact
Psych: Calm
[2023-09-27 15:15] VITALS: BP 134/69
[2023-09-27 15:15] LABS: Glucose - Point of Care 217 mg/dl (70-99)
--- NOTE | 2023-09-27 15:48 | PTCARENOTE ---
At 1515, Pt reports feeling tired, no dizziness, feels like her blood sugar maybe low. Assessed blood sugar and 217 at that time. Pt requested apple juice, will monitor.
[2023-09-27 17:12] LABS: Glucose - Point of Care 237 mg/dl (70-99)
[2023-09-27] MEDS: LASIX 60 MG PO (18:13)
[2023-09-27] MEDS: LASIX IV (18:19)
--- NOTE | 2023-09-27 18:41 | PTCARENOTE ---
Noted a few pauses today on telemetry, 2.6 sec longest, asymptomatic. Pt also up in hallway ambulating today and noted to be HARDEN, SPO2 98% on RA with ambulation, HR up to 120s with ambulation, no complaints of chest discomfort with ambulation. Once
sitting in chair after ambulating, pt states that she felt dizzy, BP 123/66, HR 81. Pt reports that she has not been moving much since in the hospital. Pt currently sitting in the chair with no complaints, will monitor.
[2023-09-27 19:38] VITALS: BP 128/70
[2023-09-27 21:26] LABS: Glucose - Point of Care 299 mg/dl (70-99)
[2023-09-27] MEDS: LANTUS 0.450000000000000011 UNITS SC (21:53)
[2023-09-27] MEDS: NEURONTIN 100 MG PO (21:54)
[2023-09-27 23:36] VITALS: BP 129/76
[2023-09-28] VITALS (7 sets, daily range): BP systolic 118–134; BP diastolic 56–76; PULSE 83; O2SAT 98; BMI 44.5
[2023-09-28] MEDS: SYNTHROID 125 MCG PO (05:18)
[2023-09-28 06:40] LABS: % Basophils 0.6 % (0-2); % Eosinophils 1.9 % (0-6); % Immature Granulocytes 0.3 % (0-0.5); % Lymphocytes 26.9 % (20.5-51.1); % Monocytes 9.6 % (1.7-9.3); % Neutrophils 60.7 % (42.2-75.2); Absolute Eosinophils 0.1 10^3/uL (0-0.7); Absolute Lymphocytes 1.8 10^3/uL (1.2-3.4); Absolute Monocytes 0.6 10^3/uL (0.1-0.6); Absolute Neutrophils 4.1 10^3/uL (1.4-6.5); Hematocrit 35.8 % (37.0-47.0); Hemoglobin 11.5 g/dL (12.0-16.0); Mean Corp Hgb Conc. 32.1 g/dL (33.0-37.0); Mean Corpuscular Hgb 27.3 pg (27.0-31.0); Mean Corpuscular Volume 84.8 fL (81.0-99.0); Mean Platelet Volume 10.6 fL (7.4-10.4); Nucleated Red Blood Cells % 0 %; Platelet Count 152 10^3/uL (130-400); Red Blood Cell Count 4.22 10^6/uL (4.20-5.40); Red Cell Dist. Width 14.2 % (11.5-14.5); White Blood Cell Count 6.7 10^3/uL (4.8-10.8)
[2023-09-28 07:05] LABS: Blood Urea Nitrogen 52 mg/dl (7-17); Calcium 10.2 mg/dl (8.4-10.2); Carbon Dioxide 33 mmol/L (22-30); Chloride 100 mmol/L (98-107); Estimated Creatinine Clearance 46 ml/min; Glucose 161 mg/dl (70-99); Potassium 3.5 mmol/L (3.5-5.1); Sodium 141 mmol/L (135-145); eGFR 38.03
[2023-09-28 07:42] LABS: Glucose - Point of Care 183 mg/dl (70-99)
[2023-09-28] MEDS: DITROPAN 2.5 MG PO ×2 (08:43→20:49)
[2023-09-28] MEDS: NOVOLOG FLEXPEN-LOW RESISTANCE 1 UNITS SC (08:43)
[2023-09-28] MEDS: ELIQUIS 5 MG PO ×2 (08:44→20:49)
[2023-09-28] MEDS: LASIX 60 MG PO ×2 (08:44→17:13)
[2023-09-28] MEDS: OCUVITE SOFTGEL 1 CAP PO (08:45)
[2023-09-28] MEDS: LIPITOR 20 MG PO (08:45)
[2023-09-28] MEDS: VITAMIN D3 (cholecalciferol) 25 MCG PO (08:45)
[2023-09-28] MEDS: TOPROL XL 12.5 MG PO (08:45)
[2023-09-28] MEDS: PROTONIX 40 MG PO (08:45)
--- NOTE | 2023-09-28 10:42 | W.PN.CARDCBS ---
Today's Communication / Plan
-
P.o. Lasix
Anticipate discharge Friday
No current indication for permanent pacing
Impression / Plan
-
Primary Mortgage Coordinator: Dr. Casas
Assessment:
HARDEN
Palpitations
Lightheadedness
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
Acute on chronic HFpEF
Chronic atrial fibrillation
Chronic OAC with eliquis
History of PVI 2012
Multiple failed AAD therapies
Diabetes
Chronic lymphedema
Chronic renal insufficiency
SHAUN on CPAP
Hypothyroidism
HTN
HLD
Obesity
History of pauses on BB therapy in past
ECHO 03/10/2023: EF 55 to 60%, mild concentric LVH, mild to moderate MR, mild TR, A-fib during study
ECHO 09/25/23: EF 67%, mild cLVH, mild MR, mild ND, no significant change compared to prior
Plan:
-Now on p.o. Lasix and tolerating
-was taking lasix 40mg at 11AM and 20mg at 1:30PM as OP (was supposed to be taking 60mg daily)
-she does have evidence of some tachybrady syndrome on review of tele. when bradycardic, has some brief pauses, all less than 2.5 seconds. most of these seem to be overnight. states she is compliant with CPAP, consider respiratory eval to ensure
correct CPAP settings. I do not think these short pauses are primarily responsible for her symptoms of dizziness. There is no current indication for pacing and she is tolerating her metoprolol at low-dose. I plan to see her November 13 in the
office and if she has ongoing symptoms we can consider a single-chamber pacemaker implant. She is at somewhat higher risk given her elevated BMI.
-she states her symptoms appear to be improving with diuresis. overall HR trends ok.
-Continue oral anticoagulation
-echo with results as above
-trop negative x2
-CHF education
-LE US negative for DVT
-PT/OT as able
-d/w nursing
Progress Note - Mortgage Coordinator
Subjective
Date of Service: September 28, 2023
Total Time Spent with Patient (in minutes): Feels well
Objective
Labs:
09/28/23 06:06
09/28/23 06:06
Labs
Hgb 11.5 g/dL (12.0-16.0) L 09/28/23 06:06
Hct 35.8 % (37.0-47.0) L 09/28/23 06:06
Plt Count 152 10^3/uL (130-400) 09/28/23 06:06
Sodium 141 mmol/L (135-145) 09/28/23 06:06
Potassium 3.5 mmol/L (3.5-5.1) 09/28/23 06:06
BUN 52 mg/dl (7-17) H 09/28/23 06:06
Creatinine 1.4 mg/dL (0.6-1.0) H 09/28/23 06:06
Glucose 161 mg/dl (70-99) H 09/28/23 06:06
Troponins
09/25/23
12:19
Troponin I < 0.012
Vital Signs and I&O:
Vital Signs
Temp Pulse Resp BP Pulse Ox
97.3 F 67 14 134/69 97
09/28/23 07:15 09/28/23 07:15 09/28/23 07:15 09/28/23 07:15 09/28/23 07:15
Vital Signs
Temp Pulse Resp BP Pulse Ox
97.3 F 67 14 134/69 97
09/28/23 07:15 09/28/23 07:15 09/28/23 07:15 09/28/23 07:15 09/28/23 07:15
Intake & Output
09/26/23 09/27/23 09/28/23 09/29/23
06:59 06:59 06:59 06:59
Intake Total 1260 / 1260 1080 / 1080 900 / 900
Output Total 3050 / 3050 1800 / 1800 1140 / 1140
Balance -1790 / -1790 -720 / -720 -240 / -240
Physical Exam
Physical Exam
�
����Physical Exam
�
��������������������General:� no apparent distress, not acutely ill
�
��������������������������Neck:� supple. no meningeal signs. normal psoterior pharynx
������������������������
���������������������������Heart:�Irregularly irregular
�
��������������������������Lungs:�� no acute respiratory distress. clear bilaterally
�
����������������������Abdomen:normal bowel sounds. not tender. no CVAT
�
��������������������������Neuro:� alert and oriented. no focal neurological deficits
�
������������������������������Skin:�� no rash
�
�����������������������Psychiatric:well kept. interactive and cooperative
�
����������������������Extremities:� no edema. no calf tenderness. negative homans. good distal pulses
�
�
�
��
�
[2023-09-28 11:27] LABS: Glucose - Point of Care 279 mg/dl (70-99)
[2023-09-28] MEDS: NOVOLOG FLEXPEN-LOW RESISTANCE 3 UNITS SC (11:39)
--- NOTE | 2023-09-28 12:57 | CM ---
Patient seen beside, reports no needs to CM. Patient hopeful to discharge today if possible, reports her son does not work today and can bring her home. IMM reviewed, signed, placed in chart. CM will continue to follow for all discharge planning
needs.
Plan; home with [facility].
--- NOTE | 2023-09-28 14:31 | W.PN.HOSP.TC ---
Today's Communication/Plan
-
recheck BMP tomorrow with potential dc to follow
Assessment / Plan
Assessment / Plan
Assessment
Haydee Whitney, age 78, came to the hospital on 09-24-23 with weeks of gradually increasing exertional dyspnea, currently with even minimal exertion such as changing clothes and bathing. Patient complains of chest heaviness with exertion but denies
pain. She noticed gaining of weight. She admits to significant lightheadedness and occasional palpitations with exertion. She denies any fever or chills. She has been compliant with oral diuretic regimen as well as BiPAP at night.
wt140.9-->132.6kg
(wt was 130.8 on 03/11)
cardio changed to oral Lasix
Impression
* Acute on chronic heart failure with preserved ejection fraction
* Lightheadedness
* Permanent atrial fibrillation
on Eliquis 5 mg bid
* Bradycardia with pauses/Tachy-Kenneth syndrome
* Obstructive sleep apnea
* Morbid obesity
* Type II diabetes mellitus
* Essential hypertension
* Hyperlipidemia
* Hypothyroidism
* Gastroesophageal reflux disease
* Chronic lymphedema
Plan
Acute on chronic heart failure with preserved ejection fraction
- Difficult to assess volume status due to body habitus
- Has not been hypoxic; respiratory exam unremarkable
- Weight gain of about 14 lbs since at least February 2023.
- pro-BNP elevated at 1230 on 09-24-23.
BUN/Creat 36/1.1-->45/1.4
- Echocardiogram 03/22 with LVEF 55-60%, A-fib, mild to moderate MR, mild TR.
- Update echocardiogram on 09-25-23 was unchanged.
- Cardiology following.
Lightheadedness
- Has experienced progressively worsening lightheadedness for the past few months.
- Possibly multifactorial in setting of volume overload, afib, pauses with bradycardia, using metoprolol.
- Experienced lightheadedness this morning a 15-20 minutes after taking metoprolol 12.5 mg; 'felt like I will fall off this chair'.
- Will check orthostatic vitals.
Permanent atrial fibrillation
Bradycardia with pauses/Tachy-Kenneth syndrome
- Occasional palpitations with exertion over the past few months.
- Could be contributing to/causing her intermittent lightheadedness and dizziness, which got worse starting this year.
- Bradycardic after receiving metoprolol 25 mg on 09-24-23; was held for a day.
- Re-introduced with 12.5 mg on 09-26-23, per cardiology; monitor for recurrent pauses.
- If the pauses return and persist, she will likely require a pacemaker.
- On apixaban.
Obstructive sleep apnea
- Continue using C-PAP at bedtime.
Discussed with Dr Casas, he would like pt evaluated by Pulm/sleep in outpt, post dc
Chronic kidney disease, stage IIIa
- Renal function slightly worsened with continued diuresis.
- Will consider adding an SGLT2 inhibitor.
- Monitor BMP.
Morbid obesity
Type II diabetes mellitus
- HbA1c 7.1 on 09-25-23.
- Carbohydrate controlled diet.
- Continue preadmission insulin dosing.
Essential hypertension
- Hold metoprolol
Hyperlipidemia
- Continue atorvastatin.
Hypothyroidism
- Continue levothyroxine.
Gastroesophageal reflux disease
- On pantoprazole.
Chronic lymphedema
- Keep legs elevated.
DVT prophylaxis
- On apixaban.
Dr. Casas requesting hold dc until tomorrow, confirm doing well and then dc at that time
Code status
- Full.
Anticipated Discharge: Within 24 hours
Subjective/Interval History
-
Date of Service: September 28, 2023
Denies chest pain or sob
Objective Data
-
Labs:
Laboratory Results
09/28/23
06:06
WBC 6.7
Hgb 11.5 L
Hct 35.8 L
Plt Count 152
Sodium 141
Potassium 3.5
Chloride 100
Carbon Dioxide 33 H
BUN 52 H
Creatinine 1.4 H
Glucose 161 H
Calcium 10.2
Vital Signs:
Vital Signs
Temp Pulse Resp BP Pulse Ox
98 F 79 14 134/74 96
09/28/23 11:24 09/28/23 11:24 09/28/23 11:24 09/28/23 11:24 09/28/23 11:24
I&O
09/27/23 09/28/23 09/29/23
06:59 06:59 06:59
Intake Total 1080 / 1080 900 / 900
Output Total 1800 / 1800 1140 / 1140
Balance -720 / -720 -240 / -240
Review of Systems
-
History Source: Patient
Constitutional: Reports Fatigue (improved)
EENT: Reports No Symptoms Reported
Respiratory: Reports Other (exertional dyspnea; significantly improved)
Cardiac: Reports No Symptoms
Abdomen/GI: Reports No Symptoms
Genitourinary: Reports No Symptoms
Musculoskeletal: Reports No Symptoms
Skin: Reports Rash (bilateral lower extremity)
Neuro: Reports No Symptoms
Endocrine: Reports No Symptoms
Hematologic / Lymphatic: Reports No Symptoms
Allergy / Immunology: Reports No Symptoms
Physical Exam
-
General: No Apparent Distress and Comfortable
HEENT: Normocephalic, Atraumatic, Moist Mucous Membranes, Anicteric and No Ptosis
Respiratory: Clear to Auscultation and Non Labored Respirations
Cardiac: Regular Rhythm and S1/S2
Breast: Deferred by me
GI: Soft, Nontender and Nondistended
Rectal: Deferred by Provider
Genito-urinary: No Costovertebral Tender
Musculoskeletal: No Clubbing, No Cyanosis, Edema, Right Upper Extrem (1+), Edema, Left Upper Extrem (1+), Edema, Right Lower Extrem (2+) and Edema, Left Lower Extrem (2+)
Skin: Warm, Dry, Rash (bilateral lower extremity, chronic stasis dermatitis) and IV Access / Catheter Site
Neuro: Awake, Alert, Oriented and Nonfocal/Grossly Intact
Psych: Calm
[2023-09-28 16:48] LABS: Glucose - Point of Care 236 mg/dl (70-99)
[2023-09-28] MEDS: NOVOLOG FLEXPEN-LOW RESISTANCE 2 UNITS SC (17:13)
[2023-09-28 21:05] LABS: Glucose - Point of Care 239 mg/dl (70-99)
[2023-09-28] MEDS: NEURONTIN 100 MG PO (21:12)
[2023-09-28] MEDS: LANTUS 0.450000000000000011 UNITS SC (21:39)
[2023-09-29 03:02] VITALS: BP 135/74
[2023-09-29] MEDS: SYNTHROID 125 MCG PO (05:00)
[2023-09-29 06:00] VITALS: BMI 44.6
[2023-09-29 06:57] VITALS: BP 139/68
[2023-09-29 07:14] LABS: Glucose - Point of Care 222 mg/dl (70-99)
[2023-09-29 07:57] VITALS: BP 139/68
[2023-09-29] MEDS: ELIQUIS 5 MG PO (08:31)
[2023-09-29] MEDS: NOVOLOG FLEXPEN-LOW RESISTANCE 2 UNITS SC ×2 (08:31→12:50)
[2023-09-29] MEDS: PROTONIX 40 MG PO (08:32)
[2023-09-29] MEDS: TOPROL XL 12.5 MG PO (08:32)
[2023-09-29] MEDS: DITROPAN 2.5 MG PO (08:32)
[2023-09-29] MEDS: LIPITOR 20 MG PO (08:32)
[2023-09-29] MEDS: OCUVITE SOFTGEL 1 CAP PO (08:33)
[2023-09-29] MEDS: LASIX PO (08:33)
[2023-09-29] MEDS: VITAMIN D3 (cholecalciferol) 25 MCG PO (08:33)
[2023-09-29 08:53] LABS: Blood Urea Nitrogen 54 mg/dl (7-17); Calcium 10.2 mg/dl (8.4-10.2); Carbon Dioxide 34 mmol/L (22-30); Chloride 99 mmol/L (98-107); Estimated Creatinine Clearance 43 ml/min; Glucose 198 mg/dl (70-99); Potassium 3.5 mmol/L (3.5-5.1); Sodium 140 mmol/L (135-145); eGFR 35.01
[2023-09-29 11:48] VITALS: BP 140/79
[2023-09-29 11:57] LABS: Glucose - Point of Care 244 mg/dl (70-99)
--- NOTE | 2023-09-29 12:45 | W.PN.CARDCBS ---
Addendum entered and electronically signed by Haile Vargas DO 09/29/23 15:46:
I saw and examined the patient.
The Steel [employer] Form Placing Supervisor's note was reviewed and I agree with the note.
Comment:
Plan:
Cont low dose Toprol.
Eliquis at lower dose with RI. Reassess as outpt, cr and dosing
No significant pauses
Dr Casas to see pt in follow up which was arranged.
Original Note:
Today's Communication / Plan
-
Cont low dose Toprol XL 12.5 mg daily for HR control
Lower Eliquis given Cre 1.5 today
Impression / Plan
-
Primary Speech Language Pathology Assistant: Dr. Casas
Assessment:
HARDEN
Palpitations
Lightheadedness
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
Acute on chronic HFpEF
Chronic atrial fibrillation
Chronic OAC with eliquis
History of PVI 2012
Multiple failed AAD therapies
Diabetes
Chronic lymphedema
Chronic renal insufficiency
SHAUN on CPAP
Hypothyroidism
HTN
HLD
Obesity
History of pauses on BB therapy in past
ECHO 03/10/2023: EF 55 to 60%, mild concentric LVH, mild to moderate MR, mild TR, A-fib during study
ECHO 09/25/23: EF 67%, mild cLVH, mild MR, mild SD, no significant change compared to prior
Plan:
-Weight is down at least 9 lbs with Lasix IV diuresis. Patient was taking Lasix 60 mg PO daily prior to admission and is now ordered Lasix 60 mg PO BID, this higher dose should be continued upon discharge.
-EF stable by echo
-Cont Toprol XL
-Not chronically on ANAYA/ARB/ARNI due to CKD
-Tele reviewed and pauses are less than 2.5 seconds and almost exclusively at night despite CPAP and reportedly good compliance.
-No indication for PPM placement and would be high risk given BMI almost 45
-Patient overall tolerating Toprol XL 12.5 mg daily, was previously taking Toprol XL 25 mg BID PRN palpitations, but this admission HRs were elevated with activity so daily dose added.
-Orthostatic VS not checked, but BP is normotensive to HTN at rest. Patient completed PT on 09/28/23 without dizziness.
-Outpatient dose of Eliquis 5 mg BID ordered, but Cre is up to 1.5 on 09/29/23 so will change to Eliquis 2.5 mg BID and follow Cre (age 78, wt 133 kg, Cre 1.5)
HPI: Patient is an 78 yo F with PMH of chronic atrial fibrillation on eliquis, history of PVI in 2012 and has failed multiple AAD therapies, chronic diastolic CHF, diabetes, lymphedema, SHAUN on CPAP who had been seen by PCP 09/16/23 for complaints of
increased LE edema. She had missed several lasix doses. She complained of palpitations and dizziness. She also had erythema of her L great toe and she was prescribed abx for cellulitis and told to follow up with cardiology. She was also ordered LE
US to r/o DVT which was supposed to take place yesterday however she continued to feel poorly so came to ER via EMS instead. She has history of pauses and bradycardia on BB in past and it was discontinued for this reason. At last cardiology office
visit 04/09/23, was restarted on PRN basis only for palpitations. She states over the last 6 weeks or so she has noted dyspnea on exertion/palpitations/dizziness with any activity causing her to stop to rest. She reports some chest tightness when
she feels her heart racing. She states she has taken Toprol multiple times over the last several weeks, however not on an every day basis. She states she is compliant with her Lasix, however breaks it up taking 40 mg every day at 11 AM and 20 mg
every day at 1:30 PM (supposed to take 60mg daily). Weight is up 14 pounds from 02/2023 admission if accurate. She has multiple small blisters on B/L feet which she states are new over the last several weeks. She was admitted and is being diuresed
with IV lasix. She took a dose of toprol yesterday morning and received a dose yesterday evening. Currently bradycardic in afib on tele, with HRs as low as 30s and 1 pause of 4.18 seconds, multiple <2.5 seconds. States she has been compliant with
eliquis. Cardiology consulted for evaluation.
Progress Note - Speech Language Pathology Assistant
Subjective
Date of Service: September 29, 2023
Patient is happy to hear that she has been doing well enough with PT that they are recommending home PT instead of rehab stay
Objective
Labs:
09/28/23 06:06
09/29/23 07:37
Labs
Hgb 11.5 g/dL (12.0-16.0) L 09/28/23 06:06
Hct 35.8 % (37.0-47.0) L 09/28/23 06:06
Plt Count 152 10^3/uL (130-400) 09/28/23 06:06
Sodium 140 mmol/L (135-145) 09/29/23 07:37
Potassium 3.5 mmol/L (3.5-5.1) 09/29/23 07:37
BUN 54 mg/dl (7-17) H 09/29/23 07:37
Creatinine 1.5 mg/dL (0.6-1.0) H 09/29/23 07:37
Glucose 198 mg/dl (70-99) H 09/29/23 07:37
Vital Signs and I&O:
Vital Signs
Temp Pulse Resp BP Pulse Ox
97.7 F 97 24 140/79 99
09/29/23 11:48 09/29/23 11:48 09/29/23 11:48 09/29/23 11:48 09/29/23 11:48
Vital Signs
Temp Pulse Resp BP Pulse Ox
97.7 F 97 24 140/79 99
09/29/23 11:48 09/29/23 11:48 09/29/23 11:48 09/29/23 11:48 09/29/23 11:48
Intake & Output
09/27/23 09/28/23 09/29/23 09/30/23
06:59 06:59 06:59 06:59
Intake Total 1080 / 1080 900 / 900 240 / 240
Output Total 1800 / 1800 1140 / 1140 550 / 550
Balance -720 / -720 -240 / -240 -310 / -310
Physical Exam
Physical Exam
GEN: AAO x3
HEENT: MMM
LUNGS: No audible wheeze
CV: Afib on tele
EXT: +1 B/L LE edema
NEURO: Gross non-focal
SKIN: No rash
--- NOTE | 2023-09-29 14:14 | W.DS.TRANS ---
DC Summary - Bottler
-
Discharge Instructions:
Discharge Diagnosis/Procedures CHF
Diet 2 Gram Sodium
Blood Work BMP in one week
Instructions: *DCA Heart Failure Instructions
Stand-Alone Forms:
Changes to Home Medications: Yes
Discharge Medications:
DC Medications w/original date entered in [employer]
atorvastatin 20 mg tablet 20 mg PO DAILY High cholesterol 11/27/11
levothyroxine 125 mcg tablet 125 mcg PO DAILY Thyroid 01/31/14
cholecalciferol (vitamin D3) 25 mcg (1,000 unit) tablet 1,000 units PO DAILY Supplement ##0 10/27/20
omeprazole 40 mg capsule,delayed release 40 mg PO DAILY Gastrointestinal issue 02/05/21
apixaban 5 mg tablet (Eliquis) 5 mg PO BID Blood Clot Prevention/Tx 03/08/23
fish, borage, flaxseed oils-omega 3,6,9 comb no.1 1,200 mg capsule (Novi 3-6-9) 1 cap PO DAILY Supplement 09/24/23
gabapentin 100 mg capsule 100 mg PO HS Neurological Condition 09/24/23
insulin aspart (niacinamide)(U-100) 100 unit/mL(3 mL) subcutaneous pen (Fiasp FlexTouch U-100 Insulin) 16 sliding scale dose SC AC Diabetes 09/24/23
insulin degludec 100 unit/mL (3 mL) subcutaneous pen (Tresiba FlexTouch U-100 insulin) 45 unit SC HS Diabetes 09/24/23
oxybutynin chloride 5 mg tablet,extended release 24 hr 5 mg PO DAILY Urinary Issue 09/24/23
vitamins A,C,N-nagx-ladjef 2,148 mcg-113 mg-45 mg-17.4 mg tablet (PreserVision AREDS) 1 tab PO DAILY Supplement 09/24/23
furosemide 40 mg tablet 60 mg (1.5 x 40 mg) PO BID@0800,1600 #90 tabs 09/29/23
metoprolol succinate 25 mg tablet,extended release 24 hr 12.5 mg (1/2 x 25 mg) PO DAILY #30 tabs 09/29/23
Home Medication Changes
Lasix increased
Toprol decreased
Pending Results: No
[2023-09-29] MEDS: LASIX 60 MG PO (14:43)
--- NOTE | 2023-09-29 15:04 | CM ---
Haydee is being discharged to home today. She denies any needs at this time. She will, however, receive services from [facility] as discussed with her on 09/26/2023.
Plan: Discharge to home with [facility].
[2023-09-29 15:45] VITALS: BP 173/73
--- NOTE | 2023-09-30 10:16 | W.HF.CON ---
Heart Failure
- LV Function
Left ventricular function study result: LV Ejection fraction >40%
Ejection Fraction Percentage: 67
- ARNI
Patient already on ARNI: No
Heart Failure ARNI Not Indicated: LV Ejection Fraction >/= 40%
- ACEI/ARB
Patient already on ACEI/ARB: Yes
- Beta Femi
Patient already on Evidence Based Beta Femi: Yes
- Mineralocorticord Receptor Antagonist
Patient already on MRA: No
Heart Failure MRA Not Indicated: LV Ejection Fraction > 40%
- Hydralazine & Isosorbide Dinitrate
Patient already on Hydralazine & Isosorbide Dinitrate: No
Heart Failure Hydralazine & Isosorbide Not Indicated: LV Ejection Fraction >40%
- Afib Anticoagulation
Patient already on Anticoagulation for Afib: Yes
- NYHA CHF Classification
NYHA CHF Classification Level: Class III - Symptoms w/ min exertion, interferes w/ nml daily activity
- ACC/AHA Stage
ACC/AHA Stage: Stage C: Symptomatic Heart Failure
== END 2023-09-29 16:54 | disposition home health service (06) | DRG 291 ==
LOC: 4 EAST ACU 15:04
PROVIDERS: Internal Medicine; Physician Assistant; ADMITTING PHYSICIAN Internal Medicine; CONSULT PHYSICIAN Internal Medicine Cardiovascular Disease; EMERGENCY PHYSICIAN Emergency Medicine; FAMILY PHYSICIAN Family Medicine
DX: I13.0 Hypertensive heart and chronic kidney disease with heart failure and stage 1 through stage 4 chronic kidney disease, or unspecified chronic kidney disease (principal); I50.33 Acute on chronic diastolic (congestive) heart failure; I48.21 Permanent atrial fibrillation; Z68.42 Body mass index [BMI] 45.0-49.9, adult; I25.10 Atherosclerotic heart disease of native coronary artery without angina pectoris; K21.9 Gastro-esophageal reflux disease without esophagitis; N18.32 Chronic kidney disease, stage 3b; E11.22 Type 2 diabetes mellitus with diabetic chronic kidney disease; E11.649 Type 2 diabetes mellitus with hypoglycemia without coma; I87.8 Other specified disorders of veins; E66.01 Morbid (severe) obesity due to excess calories; R00.1 Bradycardia, unspecified; G47.33 Obstructive sleep apnea (adult) (pediatric); E03.9 Hypothyroidism, unspecified; E78.00 Pure hypercholesterolemia, unspecified; I89.0 Lymphedema, not elsewhere classified; Z79.01 Long term (current) use of anticoagulants; Z79.890 Hormone replacement therapy; Z79.4 Long term (current) use of insulin; Z79.899 Other long term (current) drug therapy
CPT/HCPCS: 71046; 80048; 80053; 82962; 83036; 83880; 84443; 84484; 85025; 93005; 93306; 93970; 97116; 97162; 97530; 99285; Q9950

== ENCOUNTER 2023-11-10 12:57 | Emergency (ER) | payer MEDICARE, SELFPAY ==
[2023-11-10 13:09] VITALS: BP 147/83
[2023-11-10 13:40] LABS: % Basophils 0.3 % (0-2); % Eosinophils 0.7 % (0-6); % Immature Granulocytes 0.4 % (0-0.5); % Monocytes 6.7 % (1.7-9.3); % Neutrophils 73.9 % (42.2-75.2); Absolute Eosinophils 0.1 10^3/uL (0-0.7); Absolute Lymphocytes 1.3 10^3/uL (1.2-3.4); Absolute Monocytes 0.5 10^3/uL (0.1-0.6); Absolute Neutrophils 5.4 10^3/uL (1.4-6.5); Hematocrit 35.4 % (37.0-47.0); Hemoglobin 11.7 g/dL (12.0-16.0); Mean Corp Hgb Conc. 33.1 g/dL (33.0-37.0); Mean Corpuscular Hgb 28.1 pg (27.0-31.0); Mean Corpuscular Volume 84.9 fL (81.0-99.0); Mean Platelet Volume 11.4 fL (7.4-10.4); Nucleated Red Blood Cells % 0 %; Platelet Count 164 10^3/uL (130-400); Red Blood Cell Count 4.17 10^6/uL (4.20-5.40); Red Cell Dist. Width 14.6 % (11.5-14.5); White Blood Cell Count 7.3 10^3/uL (4.8-10.8)
[2023-11-10 13:46] LABS: ALT (SGPT) 12 U/L (0-35); AST (SGOT) 17 U/L (14-36); Albumin 3.8 g/dl (3.5-5.0); Alkaline Phosphatase 125 U/L (38-126); Blood Urea Nitrogen 37 mg/dl (7-17); Calcium 10.4 mg/dl (8.4-10.2); Carbon Dioxide 30 mmol/L (22-30); Chloride 107 mmol/L (98-107); Glucose 168 mg/dl (70-99); Sodium 141 mmol/L (135-145); Total Bilirubin 0.5 mg/dl (0.2-1.3); Total Protein 6.1 g/dl (6.3-8.2); eGFR 41.57
[2023-11-10 13:56] LABS: Troponin I < 0.012 ng/ml
[2023-11-10 14:37] VITALS: BP 140/87
--- NOTE | 2023-11-10 14:39 | ED TECH ---
Pt in waiting room, stated she is very thirsty and feeling like she is going to pass out. Vital signs retaken, RN Otto made aware. Pt is tearful and appears anxious in waiting room.
[2023-11-10 15:03] VITALS: BP 130/65
--- NOTE | 2023-11-10 15:13 | ED.GENMED ---
History of Present Illness
General
Chief Complaint: Chest Pain
Source: patient
Exam Limitations: none
Time Seen by Provider: 11/10/23 15:13
Nursing documentation reviewed up to this point in time: agreed with
History of Present Illness
History of Present Illness:
This is a 78 y/o female with a PMH of afib on eliquis, CKD, CHF on lasix, insulin dependent diabetes, presenting emergency department today with concerns of epigastric pain that radiates into the chest. The pain has since resolved in the emergency
department. Patient states that she had this for the past two days but noted a worsening of the pain this morning at around 4:30 am. Patient notes that the pain was less severe the past 2 days and would resolve by the end of the day. Patient states
that because of her heart failure, she has a home nurse that comes once a week and her visiting nurse today was concerned hearing patient's symptoms. Patient follows with Dr. Casas and nurse called his office who recommended ER evaluation today.
Patient denies an exertional or pleuritic component to her symptoms. She reports that the pain comes and goes. Patient denies any new shortness of breath. Patient denies dizziness, headache, fevers or chills, cough or cold like symptoms, back pain.
Patient denies nausea, arm pain, jaw pain.
Past History
Past History
ED Past Medical History: Arrthythmia (Paroxysmal atrial fibrillation), CAD, GERD, HTN, Hypercholesterolemia, NIDDM and Other (Morbid obesity, CKD)
ED Past Surgical History: Cardiac (Ablation for A. fib), Cholecystectomy and Gynecological
Social History
Tobacco: Non-smoker
Alcohol: None
Personal:
Living: with family
Family History
Family History: Unable to obtain
Review of Systems
Review of Systems
All Other Systems: ROS reviewed and negative except as documented in HPI and ROS
Phy Exam
Physical Exam
Physical Exam:
General: Patient is well appearing and in no acute distress; non-toxic.
Skin: Warm and dry, no rashes or lesions.
Head: Normocephalic, atraumatic.
Eyes: Sclera non-icteric. EOMs intact. PERRLA.
Cardiac: Heart rate is irregularly irregular with no murmurs. No tenderness to palpation of the external chest wall.
Pulm: Normal respiratory effort, no wheezes, rales, rhonchi
Peripheral Vascular: Bilateral lower extremity edema which patient states is chronic and has not worsened from baseline
Abdomen: No abdominal tenderness to palpation, no pulsatile abdominal mass, no epigastric tenderness to palpation
Neuro: CN II-XII intact, no focal neurologic deficits.
Psychiatric: Appropriate mood and affect
Scores
Heart Score for Chest Pain Patients
STEMI patient?: No
History: Slightly or Non-Suspicious
ECG: Normal (afib)
Age: >/= 65 years
Risk Factors: >/= 3 Risk Factors or History of CAD
Troponin: </= Normal Limit
Heart Score for Chest Pain Patients: 4
Heart Score Risk: 20.3% MACE over next 6 weeks
Course
Orders/Labs/Results
Orders:
Orders
11/10/23 13:05
Electrocardiogram (*1) Urgent
Reason for Study: Chest Pain
Cardiac Monitoring- Treatment ONCE
EKG- Treatment ONCE
IV Insert/Care/Rem.- Treatment PRN
O2 Therapy [RESP] Urgent
Titrate/Wean O2 to maintain O2 sat greater than (%): 90
Special Instructions: Maintain sats >/=90%
Pulse Ox/spot Check [RESP] Urgent
Quantity: 1
Special Instructions: ON ROOM AIR
11/10/23 13:21
Complete Blood Count/With Diff Urgent
Comprehensive Metabolic Panel Urgent
Troponin I Urgent
11/10/23 15:50
CR Chest - 2 Views Urgent
Comment:
Reason For Exam: chest pain
11/10/23 15:51
EKG- Treatment ONCE
11/10/23 16:00
Electrocardiogram (*1) Urgent
Reason for Study: Chest Pain
11/10/23 16:36
Troponin I Urgent
Abnormal Lab Results
11/10/23
13:21
RBC 4.17 L 10^6/uL
(4.20-5.40)
Hgb 11.7 L g/dL
(12.0-16.0)
Hct 35.4 L %
(37.0-47.0)
RDW 14.6 H %
(11.5-14.5)
MPV 11.4 H fL
(7.4-10.4)
Lymphocytes % 18.0 L %
(20.5-51.1)
BUN 37 H mg/dl
(7-17)
Creatinine 1.3 H mg/dL
(0.6-1.0)
Glucose 168 H mg/dl
(70-99)
Calcium 10.4 H mg/dl
(8.4-10.2)
Total Protein 6.1 L g/dl
(6.3-8.2)
11/10/23 13:21
11/10/23 13:21
Vital Signs
Initial and Last Documented VS:
Initial Vital Signs
Temp Pulse Resp BP Pulse Ox
97.3 F 75 18 147/83 98
11/10/23 13:09 11/10/23 13:09 11/10/23 13:09 11/10/23 13:09 11/10/23 13:09
Last Documented Vital Signs
Temp Pulse Resp BP Pulse Ox
97.3 F 56 16 154/74 99
11/10/23 13:09 11/10/23 17:46 11/10/23 17:46 11/10/23 17:46 11/10/23 17:46
MDM/Problems Addressed
Differential Diagnosis Includes:
ddx include acute coronary syndrome, afib, aortic dissection, GERD, costochondritis
MDM/Problems Addressed:
Chest pain:
This is a 78 y/o female with a PMH of afib on eliquis, CKD, CHF on lasix, insulin dependent diabetes, presenting emergency department today with concerns of epigastric pain that radiates into the chest. The pain has since resolved in the emergency
department and has not returned on reevaluation. Patient denies shortness of breath, dizziness, lightheadedness, heart racing, back pain. Denied a pleuritic or exertional component to her symptoms. On exam, her vitals are stable. Her heart rate is
irregularly irregular, patient states that she is almost always in afib. No tenderness to palpation of external chest wall. EKG demonstrates afib with no ischemic changes, to changes compared to previous studies. Two troponins were performed which
were not elevated. CXR was performed which shows unchanged left to right mediastinal shift but no widened mediastinum largely unchanged from previous studies. Considering unremarkable workup and close outpatient follow up with Dr. Casas in 4 days,
patient stable for discharge, return precautions discussed, case reviewed with my attending Dr. Ravi.
Chronic conditions affecting care:
CHF, CKD, afib on eliquis
Acute Exacerbation and/or Progression of Chronic Illness:
afib
*EKG
Interpreted by ED Provider?: Yes
EKG Intrepretation Date: 11/10/23
Interpretation: abnormal
Comparison EKG: no changes
Heart Rate: 61
Rate: normal
Rhythm: a-fib
[place]: normal axis
Ischemia: no ischemia
*Critical Care Note
Total Time (30-74mins, 75-104mins- exclusive of procedures): Not Applicable
Data Reviewed
Review of Other/Old Records Reveals: Records (reviewed discharge summary from 09/29/23 where patient was hospitalized for CHF exacerbation and discharged)
Source: patient and records
Prescriptions/Medications Considered But Not Given:
n/a
Further Testing Considered But Not Given:
n/a
Patient Management
Escalation/DeEscalation of care consider admission/obs:
Admit not indicated. Patient stable for discharge. Reviewed case with my attending Dr. Matamoros.
ED Attending Note
-
Portions of this chart may have been created with voice recognition software.� Occasional wrong word or��sound alike� substitutions may have occurred due to the inherent limitations of voice recognition software.
Discharge Plan
Departure
Patient Disposition: Home (Routine Discharge)
Date of Disposition: 11/10/23
Time of Disposition: 17:32
Patient with high blood pressure during this ER visit?: Yes
Condition: Good
Discharge Problem:
Chest pain
Instructions: Chest pain, BLOOD PRESSURE
Prescriptions:
No Action
atorvastatin 20 MG tablet
20 mg PO DAILY
levothyroxine 125 MCG tablet
125 mcg PO DAILY
cholecalciferol (vitamin D3) 1,000 UNITS tablet
1,000 units PO DAILY Qty: 0
omeprazole 40 MG capsule,delayed release(DR/EC)
40 mg PO DAILY
Eliquis 5 mg Tablet
5 mg PO BID
oxybutynin chloride 5 mg Tablet Extended Release 24hr
5 mg PO DAILY
gabapentin 100 mg Capsule
100 mg PO HS
PreserVision AREDS 2,148 mcg-113 mg-45 mg-17.4mg Tablet
1 tab PO DAILY
insulin degludec [Tresiba FlexTouch U-100] 100 unit/mL (3 mL) Insulin Pen
45 unit SC HS
[place] 3-6-9 1,200 mg Capsule
1 cap PO DAILY
Fiasp FlexTouch U-100 Insulin 100 unit/mL (3 mL) Insulin Pen
16 sliding scale dose SC AC
furosemide 40 mg Tablet
60 mg PO BID@0800,1600 Qty: 90 0RF
metoprolol succinate 25 mg Tablet Extended Release 24 Hr
12.5 mg PO DAILY Qty: 30 0RF
Referrals:
Joyce Travis MD [Family Provider] -
Activity Restrictions/Additional Instructions:
Please follow up with Dr. Casas on Friday as scheduled.
Please return to the emergency department if you experience a recurrence of your symptoms, chest pain, shortness of breath, difficulty speaking, difficulty ambulating, abdominal pain, nausea, vomiting, fever extremity paresthesias, numbness or
tingling, or any other signs or symptoms concerning to you.
Interventions
Interventions:
*Risk Screen - Suicide Last Done: 11/10/23 13:09
*General Assessment Last Done: 11/10/23 13:09
*Neglect/Abuse Screening Last Done: 11/10/23 13:09
*Nursing Disposition Last Done: 11/10/23 18:13
ED- Cardiac Assessment Last Done: 11/10/23 16:19
Discharge Date and Time
Discharge Date/Time: 11/10/23 18:18
Print Language: PORTUGUESE
[2023-11-10 15:58] VITALS: BMI 48.4
[2023-11-10 17:17] LABS: Troponin I < 0.012 ng/ml
[2023-11-10 17:46] VITALS: BP 154/74
== END 2023-11-10 18:18 | disposition home or self-care (01) ==
LOC: EMR 12:57
PROVIDERS: Physician Assistant; Student in an Organized Health Care Education/Training Program; EMERGENCY PHYSICIAN Student in an Organized Health Care Education/Training Program; FAMILY PHYSICIAN Family Medicine
DX: R07.89 Other chest pain (principal); R10.13 Epigastric pain; R60.0 Localized edema; I48.0 Paroxysmal atrial fibrillation; I13.0 Hypertensive heart and chronic kidney disease with heart failure and stage 1 through stage 4 chronic kidney disease, or unspecified chronic kidney disease; I50.9 Heart failure, unspecified; N18.9 Chronic kidney disease, unspecified; E11.22 Type 2 diabetes mellitus with diabetic chronic kidney disease; E66.01 Morbid (severe) obesity due to excess calories; Z68.42 Body mass index [BMI] 45.0-49.9, adult; E78.00 Pure hypercholesterolemia, unspecified; K21.9 Gastro-esophageal reflux disease without esophagitis; I25.10 Atherosclerotic heart disease of native coronary artery without angina pectoris; G47.30 Sleep apnea, unspecified; K57.90 Diverticulosis of intestine, part unspecified, without perforation or abscess without bleeding; M19.90 Unspecified osteoarthritis, unspecified site; E03.9 Hypothyroidism, unspecified; F32.A Depression, unspecified; F41.0 Panic disorder [episodic paroxysmal anxiety]; Z79.01 Long term (current) use of anticoagulants; Z90.49 Acquired absence of other specified parts of digestive tract; Z88.1 Allergy status to other antibiotic agents; Z88.8 Allergy status to other drugs, medicaments and biological substances; Z91.048 Other nonmedicinal substance allergy status
CPT/HCPCS: 99285; 94760; 71046; 80053; 84484; 85025; 93005

== ENCOUNTER → 2023-12-08 07:39 | Outpatient (REF) | payer MEDICARE, SELFPAY | LOC: DHCBC/DCA 07:39 | PROVIDERS: ATTENDING PHYSICIAN Internal Medicine Cardiovascular Disease; FAMILY PHYSICIAN Family Medicine | DX: R07.89 Other chest pain (principal) | CPT/HCPCS: 78452; 93017; A9500; J2785 ==

== ENCOUNTER 2024-02-17 04:54 | Inpatient (IN) | payer MEDICARE, SELFPAY ==
[2024-02-16 23:46] VITALS: BP 130/59; BMI 49.1
[2024-02-17] VITALS (17 sets, daily range): BP systolic 133–182; BP diastolic 50–95; PULSE 67; O2SAT 100; BMI 47.8
[2024-02-17 00:01] LABS: % Basophils 0.2 % (0-2); % Eosinophils 1.1 % (0-6); % Immature Granulocytes 0.5 % (0-0.5); % Lymphocytes 18.8 % (20.5-51.1); % Monocytes 9.2 % (1.7-9.3); % Neutrophils 70.2 % (42.2-75.2); Absolute Eosinophils 0.1 10^3/uL (0-0.7); Absolute Lymphocytes 1.6 10^3/uL (1.2-3.4); Absolute Monocytes 0.8 10^3/uL (0.1-0.6); Absolute Neutrophils 5.8 10^3/uL (1.4-6.5); Hematocrit 35.2 % (37.0-47.0); Hemoglobin 11.3 g/dL (12.0-16.0); Mean Corp Hgb Conc. 32.1 g/dL (33.0-37.0); Mean Corpuscular Hgb 27.6 pg (27.0-31.0); Mean Corpuscular Volume 86.1 fL (81.0-99.0); Mean Platelet Volume 10.8 fL (7.4-10.4); Nucleated Red Blood Cells % 0 %; Platelet Count 148 10^3/uL (130-400); Red Blood Cell Count 4.09 10^6/uL (4.20-5.40); Red Cell Dist. Width 14.3 % (11.5-14.5); White Blood Cell Count 8.2 10^3/uL (4.8-10.8)
[2024-02-17 00:19] LABS: ALT (SGPT) 13 U/L (0-35); Albumin 3.6 g/dl (3.5-5.0); Blood Urea Nitrogen 47 mg/dl (7-17); Calcium 9.9 mg/dl (8.4-10.2); Carbon Dioxide 26 mmol/L (22-30); Chloride 108 mmol/L (98-107); Estimated Creatinine Clearance 60 ml/min; Glucose 194 mg/dl (70-99); Sodium 141 mmol/L (135-145); Total Bilirubin 0.7 mg/dl (0.2-1.3); Total Protein 6.2 g/dl (6.3-8.2)
[2024-02-17 00:25] LABS: NT-proBNP 2010 pg/ml; Troponin I < 0.012 ng/ml
[2024-02-17 00:39] LABS: AST (SGOT) 22 U/L (14-36); Alkaline Phosphatase 114 U/L (38-126); Potassium 4.2 mmol/L (3.5-5.1)
--- NOTE | 2024-02-17 01:13 | ED.GENMED ---
History of Present Illness
General
Chief Complaint: Swelling
Source: patient and records
Exam Limitations: none
Time Seen by Provider: 02/17/24 01:02
Nursing documentation reviewed up to this point in time: agreed with
History of Present Illness
History of Present Illness:
78-year-old female with past medical history of hypertension, hyperlipidemia, CAD, CHF, diabetes, CKD, obesity, SHAUN on CPAP, chronic lymphedema who presents to the emergency room from home where she lives alone; she presents via EMS for evaluation
of increased swelling of the legs, pain in the left leg and increased shortness of breath, weight gain. Patient reports onset of symptoms over the past 2 or 3 days. She reports that she has had increased swelling in both legs but is much worse on
the left. She says that she has had increasing shortness of breath with exertion. She says she has had about a 4 pound weight gain over the past few days. She says that yesterday and today she took a double dose of her home Lasix but despite this
she still had increasing symptoms and so she came to the ER for assessment. In addition to swelling in the legs she also reports pain in the left leg in particular specifically in the left foot. She feels it is more red than usual. She denies any
chest pain. She denies any cough or fever. She denies any other complaints.
Past History
Past History
ED Past Medical History: Arrthythmia (Paroxysmal atrial fibrillation), CAD, GERD, HTN, Hypercholesterolemia, NIDDM and Other (Morbid obesity, CKD)
ED Past Surgical History: Cardiac (Ablation for A. fib), Cholecystectomy and Gynecological
Social History
Tobacco: Non-smoker
Alcohol: None
Personal:
Living: with family
Family History
Family History: Unable to obtain
Review of Systems
Review of Systems
All Other Systems: ROS reviewed and negative except as documented in HPI and ROS
Constitutional: Reports weight gain; Denies fever
Respiratory: Reports trouble breathing; Denies cough
Cardiac: Denies chest pain or palpitations
ABD/GI: Denies abdominal pain
Musculoskeletal: Reports edema
Neurological: Denies dizzy or headache
Phy Exam
Physical Exam
Physical Exam:
General: Awake, alert, oriented x3; no acute distress
Head: Normocephalic, atraumatic
Eyes: Conjunctiva normal
Throat: Airway intact, handling secretions
Neck: Trachea midline, no notable JVD
Lungs: Breath sounds diminished at the lung bases; mild tachypnea with respiratory rate 20-24; normal pulse ox on room air
Heart: Regular rate and rhythm, no murmurs, gallops, or rubs appreciated
Abd: Soft, non distended, nontender
Neuro: No gross deficits
Extremities: Patient has marked edema +2 right lower extremity, +3 left lower extremity; she has chronic venous stasis changes around the lower leg bilaterally; she has some superficial blistering on the dorsum of the feet bilaterally; left foot is
erythematous, warm to the touch and tender to palpation on the dorsum
Scores
Heart Failure Risk
Heart Failure Risk Score: Yes
History of Stroke or TIA: No
History of intubation for respiratory distress: No
Heart rate on ED arrival >/= 110: No
SaO2 <90% on arrival on room air: No
HR >/=110 during 3min walk test (or too ill to perform test): Yes
ECG has acute ischemic changes: No
Urea >/=12mmol/L (BUN 33.6mg/dL): Yes
Serum CO2>/=35mmol/L: No
Troponin I or T elevated to TN Level (0.4mg/dL): No
NT-proBNP >/=5,000ng/L (5,000pg/ml): No
HF Risk Score: 3
Admission Status: HIGH RISK 15.9% Consider SNF treatment or admission to hospital
Heart Score for Chest Pain Patients
STEMI patient?: Not applicable
Withdrawal Assessment of Alcohol
Withdrawal Assessment Completed?: Not applicable
Course
Orders/Labs/Results
Orders:
Orders
02/16/24 23:46
Electrocardiogram (*1) Urgent
Reason for Study: Other
Other Reason for Exam: Respiratory Distress
Cardiac Monitoring- Treatment ONCE
EKG- Treatment ONCE
IV Insert/Care/Rem.- Treatment PRN
O2 Therapy [RESP] Urgent
Titrate/Wean O2 to maintain O2 sat greater than (%): 93
Special Instructions: TO MAINTAIN CONTINUOUS O2 SATS >/= 93%
Pulse Ox/cont/shift [RESP] Urgent
Quantity: 1
Special Instructions: continuous pulse ox
02/16/24 23:55
Complete Blood Count/With Diff Urgent
Comprehensive Metabolic Panel Urgent
NT-proBNP Urgent
Troponin I Urgent
02/17/24 00:00
CR Chest - 2 Views Urgent
Reason For Exam: respiratory distress
CR Foot - Left Min 3 Views Urgent
Reason For Exam: pain and swelling
02/17/24 01:05
US Periph Venous LOWER Ext Reginald Urgent
Comment:
Reason For Exam: b/l leg swelling L>R
02/17/24 02:57
CeFAZolin 2 GRAM [Ancef] 2 grams in 10 ml IV NOW
Furosemide [Lasix] 60 mg IV NOW STA
Abnormal Lab Results
02/16/24
23:55
RBC 4.09 L 10^6/uL
(4.20-5.40)
Hgb 11.3 L g/dL
(12.0-16.0)
Hct 35.2 L %
(37.0-47.0)
MCHC 32.1 L g/dL
(33.0-37.0)
MPV 10.8 H fL
(7.4-10.4)
Absolute Monos (auto) 0.8 H 10^3/uL
(0.1-0.6)
Lymphocytes % 18.8 L %
(20.5-51.1)
Chloride 108 H mmol/L
(98-107)
BUN 47 H mg/dl
(7-17)
Creatinine 1.1 H mg/dL
(0.6-1.0)
Glucose 194 H mg/dl
(70-99)
Total Protein 6.2 L g/dl
(6.3-8.2)
02/16/24 23:55
02/16/24 23:55
Vital Signs
Initial and Last Documented VS:
Initial Vital Signs
Temp Pulse Resp BP Pulse Ox
36.4 C 76 24 130/59 99
02/16/24 23:46 02/16/24 23:46 02/16/24 23:46 02/16/24 23:46 02/16/24 23:46
Last Documented Vital Signs
Temp Pulse Resp BP Pulse Ox
36.4 C 74 19 133/50 99
02/16/24 23:46 02/17/24 02:40 02/17/24 02:40 02/17/24 02:39 02/17/24 02:40
MDM/Problems Addressed
Differential Diagnosis Includes:
Left leg pain and swelling: Cellulitis, DVT, CHF
Shortness of breath, weight gain: CHF, pneumonia, PE considered less likely clinically
MDM/Problems Addressed:
78-year-old female presents to the emergency room for evaluation of increased swelling in the legs, pain in the left leg, weight gain and shortness of breath. Vitals and exam as above. She had labs sent in triage including a CBC which shows stable
anemia, CMP which shows stable CKD with creatinine 1.1 today. Hyperglycemia with a glucose of 194. She had a negative troponin, elevated proBNP to 2009. Chest x-ray reviewed by me shows cardiomegaly no jeremy edema. X-ray of the foot no
subcutaneous emphysema, no fracture noted. Will send for ultrasound of the legs to rule out DVT. Suspect that there is some cellulitis developing in the left leg. Suspect swelling, weight gain, shortness of breath related to CHF. Would err
towards admission especially with worsening symptoms despite increased outpatient diuretic over the past 48 hours. Monitor closely reassess after the above.
Ultrasound negative for DVT bilaterally. Suspect cellulitis left leg/foot will treat with Ancef. Will provide IV Lasix for CHF exacerbation. Discussed with hospitalist for admission.
Chronic conditions affecting care:
CHF, obesity
*Radiology
Radiology exam reviewed: preliminary read by ED provider and radiology read reviewed
*Pulse Oximetry
Patient hypoxic: no
*EKG
Interpreted by ED Provider?: Yes
Heart Rate: 69
Rate: normal
Rhythm: a-fib
[place]: normal axis
Interval: normal interval
QRS Pattern: wide non-specific
Ischemia: other (Nonspecific T wave flattening)
*Critical Care Note
Total Time (30-74mins, 75-104mins- exclusive of procedures): Not Applicable
Data Reviewed
Source: patient and records
Patient Management
Discussion with other providers: Hospitalist (Discussed with hospitalist)
Escalation/DeEscalation of care consider admission/obs:
Admission indicated
ED Attending Note
-
Portions of this chart may have been created with voice recognition software.� Occasional wrong word or��sound alike� substitutions may have occurred due to the inherent limitations of voice recognition software.
Discharge Plan
Departure
Patient Disposition: Admit
Date of Disposition: 02/17/24
Time of Disposition: 03:35
Admit to doctor: Aamir
Presentation/result/management discussed w/ accepting MD/DO: Hospitalist
Discharge Problem:
CHF exacerbation, Cellulitis
Prescriptions:
No Action
atorvastatin 20 MG tablet
20 mg PO DAILY
levothyroxine 125 MCG tablet
125 mcg PO DAILY
cholecalciferol (vitamin D3) 1,000 UNITS tablet
1,000 units PO DAILY Qty: 0
omeprazole 40 MG capsule,delayed release(DR/EC)
40 mg PO DAILY
Eliquis 5 mg Tablet
5 mg PO BID
oxybutynin chloride 5 mg Tablet Extended Release 24hr
5 mg PO DAILY
gabapentin 100 mg Capsule
100 mg PO HS
PreserVision AREDS 2,148 mcg-113 mg-45 mg-17.4mg Tablet
1 tab PO DAILY
insulin degludec [Tresiba FlexTouch U-100] 100 unit/mL (3 mL) Insulin Pen
45 unit SC HS
[place] 3-6-9 1,200 mg Capsule
1 cap PO DAILY
Fiasp FlexTouch U-100 Insulin 100 unit/mL (3 mL) Insulin Pen
16 sliding scale dose SC AC
furosemide 40 mg Tablet
60 mg PO BID@0800,1600 Qty: 90 0RF
metoprolol succinate 25 mg Tablet Extended Release 24 Hr
12.5 mg PO DAILY Qty: 30 0RF
Referrals:
Joyce Travis MD [Family Provider] -
Interventions
Interventions:
*Risk Screen - Suicide Last Done: 02/16/24 23:46
*General Assessment Last Done: 02/16/24 23:46
*Neglect/Abuse Screening Last Done: 02/16/24 23:46
*ED COVID-19 Vaccine History Last Done: 02/16/24 23:46
ED- Cardiac Assessment Last Done: 02/17/24 00:05
ED- Pulmonary Assessment Last Done: 02/17/24 00:05
ED-Skin Assessment Last Done: 02/17/24 00:05
Discharge Date and Time
Print Language: SLOVENIAN
[2024-02-17] MEDS: ANCEF 10 IV ×3 (04:00→21:04)
[2024-02-17] MEDS: LASIX 60 MG IV ×2 (04:01→11:19)
--- NOTE | 2024-02-17 04:45 | HPS.HSE ---
Family Physician
-
Family Physician: Joyce Travis MD
Chief Complaint
-
Leg Swelling, L foot and ankle pain
History of Present Illness
Patient is an 78y F with PMH significant for CHF, A-Fib and obesity who presents to ED complaining of leg swelling. Patient states that she has noted progressive swelling of the L > R LE since . She has gained about 4 lbs in the past
week alone and notes that she has not been urinating as much as usual despite her usual Lasix dose. She denies any chest pain or increased in usual shortness of breath.
Patient complains of pain in the L foot and ankle that has been present for the past few days.
Patient denies any recent change in medication regimen.
No fevers / chills, GI complaints, etc.
Medical History
Past Medical History
Past Medical History: Reports Other
Additional Past Medical History:
Atrial Fibrillation
CHFpEF
Chronic Lymphedema
SHAUN on CPAP
Morbid Obesity
DM-II
GERD
Hypothyroidism
Past Surgical History: Reports Other
Additional Past Surgical History:
Cholecystectomy
Hernia repair
Hysterectomy
Cataracts
Social History
Tobacco: Non-smoker
Alcohol: None
Drug: None
Family History
Family History: Not pertinent
Allergies / Home Medications
Allergies reflects when Allergies were last updated in [facility].
Home Medications with original date entered in [facility]
Allergy/Medication List:
Allergies
Allergy/AdvReac Type Severity Reaction Status Date / Time
adhesive tape Allergy Blistering Verified 09/24/23 17:28
metformin HCl Allergy Diarrhea Verified 09/24/23 17:28
[From Glucophage]
vancomycin Allergy Unknown Verified 09/24/23 17:28
Home Medications
atorvastatin 20 mg tablet 20 mg PO DAILY High cholesterol 11/27/11
levothyroxine 125 mcg tablet 125 mcg PO DAILY Thyroid 01/31/14
cholecalciferol (vitamin D3) 25 mcg (1,000 unit) tablet 1,000 units PO DAILY Supplement ##0 10/27/20
omeprazole 40 mg capsule,delayed release 40 mg PO DAILY Gastrointestinal issue 02/05/21
apixaban 5 mg tablet (Eliquis) 5 mg PO BID Blood Clot Prevention/Tx 03/08/23
fish, borage, flaxseed oils-omega 3,6,9 comb no.1 1,200 mg capsule ([place] 3-6-9) 1 cap PO DAILY Supplement 09/24/23
gabapentin 100 mg capsule 100 mg PO HS Neurological Condition 09/24/23
insulin aspart (niacinamide)(U-100) 100 unit/mL(3 mL) subcutaneous pen (Fiasp FlexTouch U-100 Insulin) 16 sliding scale dose SC AC Diabetes 09/24/23
insulin degludec 100 unit/mL (3 mL) subcutaneous pen (Tresiba FlexTouch U-100 insulin) 45 unit SC HS Diabetes 09/24/23
oxybutynin chloride 5 mg tablet,extended release 24 hr 5 mg PO DAILY Urinary Issue 09/24/23
vitamins A,C,A-iwvg-edscwv 2,148 mcg-113 mg-45 mg-17.4 mg tablet (PreserVision AREDS) 1 tab PO DAILY Supplement 09/24/23
furosemide 40 mg tablet 60 mg (1.5 x 40 mg) PO BID@0800,1600 #90 tabs 09/29/23
metoprolol succinate 25 mg tablet,extended release 24 hr 12.5 mg (1/2 x 25 mg) PO DAILY #30 tabs 09/29/23
Review of Systems
-
History Source: Patient
A 12 point ROS was completed and negative except as noted: Yes
Constitutional: Reports Weight Gain and Fatigue; Denies Fever
EENT: Denies Sore Throat
Respiratory: Reports Trouble Breathing; Denies Cough
Cardiac: Denies Chest Pain, Diaphoresis or Palpitations
Abdomen/GI: Denies Abdominal Pain, Nausea, Vomiting or Diarrhea
: Reports Other (Decreased urination.); Denies Dysuria, Frequency or Flank Pain
Musculoskeletal: Reports Joint Pain, Joint Swelling and Edema
Neurological: Denies Dizzy or Headache
Psych: Denies Depression or Anxiety
Physical Exam
Vital Signs
Vital Signs
Temp Pulse Resp BP Pulse Ox
97.5 F 64 22 150/58 99
02/16/24 23:46 02/17/24 04:30 02/17/24 04:30 02/17/24 04:01 02/17/24 04:15
Physical Exam
General: Other (Morbidly obese 78y F in no acute distress.)
HEENT: Moist mucous membranes, PERRLA and Other (Thick neck.)
Respiratory: Other (Decreased BS at bases - otherwise clear.)
Cardiac: S1/S2, Irregular Rhythm and Murmur (II/ ALDO)
GI: Non Tender, Non Distended and Normal Bowel Sounds
Musculoskeletal: Other (4+ pitting edema b/l LEs with blistering of the skin, mild erythema and localized tenderness. No evident open wounds, etc.)
Neuro: AO x 3
Laboratory Results
-
02/16/24 23:55
02/16/24 23:55
Laboratory Results
Total Bilirubin 0.7 mg/dl (0.2-1.3) 02/16/24 23:55
AST 22 U/L (14-36) 02/16/24 23:55
ALT 13 U/L (0-35) 02/16/24 23:55
Alkaline Phosphatase 114 U/L (38-126) 02/16/24 23:55
Troponin I < 0.012 ng/ml 02/16/24 23:55
Impression/Plan
-
A/P: Patient is an 78y F with PMH significant for CHF, A-Fib and morbid obesity who presents to ED complaining of LE edema and discomfort x 5-6 days.
Acute on Chronic HFpEF
Chronic Lymphedema
- Admit for further evaluation and treatment.
- Weight gain, LE edema and elevated BNP c/w volume overload.
- IV Lasix BID for now.
- Follow I/Os, daily weights, etc.
- Cardiology evaluation for additional recommendations.
- Follow for clinical improvement.
- PT / Lymphedema therapy evaluation.
Possible Cellulitis
- With pain in the L ankle / foot it is possible there is a component of cellulitis.
- Will continue IV Ancef for now.
- Follow for fever, new / worsening symptoms, etc.
- Would have low threshold to discontinue abx if symptoms improve readily with diuresis.
Permanent Atrial Fibrillation
- Stable. Monitor on tele.
- Continue Eliquis for stroke risk reduction.
- Continue metoprolol.
Benign Hypertension
- Stable. Continue usual meds with holding parameters.
DM-II
- Stable. Recent A1C was just > 7% per patient.
- Continue basal : bolus insulin regimen.
- Follow glucose and cover with SSI as needed.
SHAUN on CPAP
- Continue PAP therapy during hospital stay.
- Patient uses AutoPAP at home - start with 5cm H2O and adjust as needed.
Hypothyroidism
- Continue current T4 supplementation.
- Update TFTs.
GERD
- Stable. Continue PPI.
Morbid Obesity secondary to excess calories
- Affects all aspects of care and contributes to chronic lymphedema issues.
- Encourage healthy diet and increased activity with goal of weight reduction.
DVT Prophylaxis: On Eliquis
Code Status: Full
--- NOTE | 2024-02-17 07:39 | W.PN.HOSP.TC ---
Today's Communication/Plan
-
Continue IV diuresis
Make sure patient is wearing AutoPAP at night for sleep apnea
Assessment / Plan
Assessment / Plan
Physical Exam
General: Morbidly obese. Not in acute distress.
HEENT: Moist mucous membranes
Respiratory: CTAB
Cardiac: S1/S2, Irregular Rhythm and Murmur (II/ ALDO)
GI: Non Tender, Non Distended and Normal Bowel Sounds
Musculoskeletal: 4+ pitting edema bilateral lower extremities with blistering of the skin, mild erythema and localized tenderness
Neuro: AO x 3
Assessment/Plan
Patient is an 78y F with PMH significant for CHF, A-Fib and morbid obesity who presented to the [facility] Emergency Department complaining of lower extremity edema and discomfort x 5-6 days.
Presentation on 02/16/2024 with progressively worsening lower extremity edema dyspnea on exertion and weight gain
Acute on Chronic HFpEF
Chronic Lymphedema
- Weight gain, LE edema and elevated BNP c/w volume overload.
- Continue IV Lasix 60 mg BID for now.
- Follow I/Os, daily weights, etc.
- Cardiology evaluation for additional recommendations.
- Not chronically on ANAYA/ARB/ARNI due to CKD.
- Could can consider initiation SGLT2 inhibitor.
- PT / Lymphedema therapy evaluation.
Haydee Whitney��� �78y Fw ith CHF +/- L foot cellulitis (prob just from edema).� IV Lasix.� Cardio consulted.� Continue IV ancef for now - but not convinced there is infection here.� Morbidly obese, DM, A-Fib on Eliquis.
Possible Left Ankle Cellulitis
- With pain in the L ankle / foot it is possible there is a component of cellulitis.
- Will continue IV Ancef for now.
- Follow for fever, new / worsening symptoms, etc.
- Would have low threshold to discontinue abx if symptoms improve readily with diuresis.
Permanent Atrial Fibrillation
History of PVI 2012
Multiple failed AAD therapies
- Stable. Monitor on tele.
- Continue Eliquis for stroke risk reduction.
- Continue metoprolol.
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
History of pauses on beta miguel a therapy in past
- On 02/17/24 morning, noted episodes of bradycardia into the 30s
- Pauses noted on telemetry on 02/16/24 to 02/17/24 overnight occurred while patient was not on CPAP/AutoPap - SHAUN could be contributing to her nocturnal bradycardia and pauses.
- There was outpatient discussion regarding pacemaker, but there was no imminent need for it
- Patient has intermittent palpitations and tachycardia raising concern for tachy-bradycardia syndrome, but tolerates low dose Toprol XL
- Continue to monitor on telemetry
Benign Hypertension
- Stable. Continue usual meds with holding parameters.
Hyperlipidemia
DM-II
- Stable. Recent A1C was just > 7% per patient.
- Continue basal : bolus insulin regimen.
- Follow glucose and cover with SSI as needed.
- Per clinical pharmacists, patient takes insulin degludec 45 units HS at home. There is typically a 20% dose adjustment when converting to glargine which would be ~36 units.
- For now, continue glargine 30 units HS and increase as needed
Chronic Renal Insufficiency
-Baseline creatinine traditionally has run 1.2-1.4
SHAUN on CPAP
- Continue PAP therapy during hospital stay.
- Patient uses AutoPAP at home - start with 5cm H2O and adjust as needed.
Hypothyroidism
- Continue current T4 supplementation.
- Update TFTs.
GERD
- Stable. Continue PPI.
Morbid Obesity secondary to excess calories
- Affects all aspects of care and contributes to chronic lymphedema issues.
- Encourage healthy diet and increased activity with goal of weight reduction.
DVT Prophylaxis: On Eliquis
Code Status: Full
Anticipated Discharge: > 48 hours
Subjective/Interval History
-
Date of Service: February 17, 2024
Patient was seen and examined. She reported feeling okay and denied any dizziness or confusion at the time she was seen.
Objective Data
-
Labs:
Laboratory Results
02/16/24
23:55
WBC 8.2
Hgb 11.3 L
Hct 35.2 L
Plt Count 148
Sodium 141
Potassium 4.2
Chloride 108 H
Carbon Dioxide 26
BUN 47 H
Creatinine 1.1 H
Glucose 194 H
Calcium 9.9
Total Bilirubin 0.7
AST 22
ALT 13
Alkaline Phosphatase 114
Vital Signs:
Vital Signs
Temp Pulse Resp BP Pulse Ox
97.5 F 68 23 154/65 95
02/16/24 23:46 02/17/24 06:30 02/17/24 06:30 02/17/24 06:00 02/17/24 06:30
I&O
02/16/24 02/17/24 02/18/24
06:59 06:59 06:59
Output Total 900 / 900
Balance -900 / -900
[2024-02-17] MEDS: SYNTHROID 125 MCG PO (09:27)
[2024-02-17] MEDS: NOVOLOG FLEXPEN-MODERATE RESISTANCE SC (09:58)
[2024-02-17] MEDS: LIPITOR 20 MG PO (09:59)
[2024-02-17] MEDS: ELIQUIS 5 MG PO ×2 (09:59→20:08)
[2024-02-17] MEDS: PROTONIX 40 MG PO (09:59)
[2024-02-17 10:08] LABS: Glucose - Point of Care 139 mg/dl (70-99)
--- NOTE | 2024-02-17 11:06 | CON.CAR ---
Addendum entered and electronically signed by Omkar Vera MD 02/17/24 16:04:
Attending addendum: Patient seen and examined. PA note reviewed and findings independently confirmed by me. Briefly, this is an 78-year-old female with a past medical history notable for morbid obesity, chronic atrial fibrillation on oral
anticoagulation and history of several ablation and multiple antiarrhythmic drug therapies which have been unsuccessful. She has chronic diastolic heart failure with preserved left ventricular function as well as diabetes, lymphedema, and
obstructive sleep apnea. She has experienced bradycardic episodes primarily in the evening and discussions have been held regarding potential need for permanent pacemaker. A recent Lexiscan stress study from 12/08/2023 did not suggest high risk
findings. She now presents after noticing significant lower extremity edema.
Troponin levels are undetected
Physical exam
GEN: AAO x 3. No acute distress
HEENT: NC/AT, sclera are anicteric, hearing and nares are normal.
NECK: JVP is difficult to assess secondary to body
LUNGS: Clear in the anterolateral lung field without wheezing. Good air movement.
CV: Irregularly irregular rate and rhythm. Normal S1/S2. Murmur: None
ABD : Soft, Bowel sounds are present.
EXT: Marked LE edema.
NEURO: No focal neurologic deficits
IMPRESSION/RECOMMENDATIONS
-Acute on chronic diastolic heart failure
IV diuresis : Increase furosemide to 80mg IV bid
I would consider addition of spironolactone given chronic diastolic hear failure
Needs good blood pressure control. She likely will not tolerate additional AV jake blocking agents. Suggest lisinopril 5mg daily. Anticipate up to 30% increase in Cr with lisinopril
Consider SGLT2 inhibitor given diastolic heart failure and chronic volume overload and / or GLP1RA
-Bradycardia
Avoid AV jake agents
Continue telemetry monitoring
CPAP to prevent nocturnal desaturations / bradycardia
Will discuss with EP colleagues
-Primary hypertension
Not well controlled
Will add valsartan and possible amlodipine
continue IV Furosemide
+/- Aldactone for chronic diastolic heart failure
-Diabetes:
HgbA1c last check 7.2%
Needs tight control of her diabetes.
-CKD 3a:
Would benefit from good blood pressure control and from tight control of DM
Added ARB
May consider SGLT2 vs GLP1 RA
-Mixed hyperlipidemia:
Last LDL was excellent
Original Note:
Consultation
Consultation Request
Date/Time Consultation Requested: 02/17/2024
Date/Time Consultation Performed: 02/17/2024
Requesting Provider: Dr. Gandara
Performing Provider: Inés Mercado PA-C
Reason for Consultation: Heart failure, bradycardia
Medical History
-
Chief Complaint: palpitations, lightheadedness
History of Present Illness:
Patient is an 78 yo F with PMH of morbid obesity, chronic atrial fibrillation on Eliquis, history of PVI in 2012 and has failed multiple AAD therapies, chronic HF with preserved ejection fraction, diabetes, lymphedema, SHAUN on CPAP. She has long
standing history of pauses and bradycardia on BB in past and it was discontinued for this reason. However over the last year she has noted intermittent palpitations and was reinitiated on low-dose Toprol and has done reasonably well. She now
presents to emergency department 02/17/2024 with lower extremity edema, dyspnea on exertion and weight gain over the last 5 to 7 days. She took an extra dose of Lasix with poor response and decided to come to emergency department for evaluation.
proBNP 2009. Chest x-ray shows mild congestive heart failure as well as hyperaeration suspicious for COPD. Lower extremity venous Doppler negative for DVT. EKG showed rate controlled atrial fibrillation. Troponin undetectable. She also
complains of left foot and ankle pain raising concern for possible cellulitis. Patient received 60 mg IV Lasix in emergency department and IV cefazolin.
Patient admits to intermittent episodes of dizziness/lightheadedness. She reports sometimes it wakes her from sleep other times she can feel that way during the day. She denies chest pain.
PMH:
Chronic atrial fibrillation
Chronic OAC with eliquis
History of PVI 2012
Multiple failed AAD therapies
Chronic HFpEF
Diabetes
Chronic lymphedema
Chronic renal sufficiency
SHAUN on CPAP
Hypothyroidism
HTN
HLD
Obesity
Past Medical History
Past Medical History: Other (in HPI)
Past Surgical History: Cholecystectomy, Gynecological (Hysterectomy) and Other (Hernia repair, cataract extraction)
Social History
Tobacco: Non-Smoker
Alcohol: None
Drug: None
Living: Alone
Family History
Family History: Cancer, Diabetes, Hypertension and Other (CHF)
Allergies / Home Medications
Allergy/AdvReac Type Severity Reaction Status Date / Time
adhesive tape Allergy Blistering Verified 09/24/23 17:28
metformin HCl Allergy Diarrhea Verified 09/24/23 17:28
[From Glucophage]
vancomycin Allergy Unknown Verified 09/24/23 17:28
�Medication �Instructions �Recorded �Confirmed �Type
atorvastatin 20 mg tablet 20 mg PO HS High cholesterol 11/27/11 02/17/24 History
levothyroxine 125 mcg tablet 125 mcg PO DAILY Thyroid 01/31/14 02/17/24 History
cholecalciferol (vitamin D3) 25 2,000 units PO DAILY Supplement ##0 10/27/20 02/17/24 History
mcg (1,000 unit) tablet
omeprazole 40 mg capsule,delayed 40 mg PO DAILY Gastrointestinal 02/05/21 02/17/24 History
release issue
apixaban 5 mg tablet (Eliquis) 5 mg PO BID Blood Clot 03/08/23 02/17/24 History
Prevention/Tx
fish, borage, flaxseed oils-omega 1 cap PO DAILY Supplement 09/24/23 02/17/24 History
3,6,9 comb no.1 1,200 mg capsule
(Hayden 3-6-9)
gabapentin 100 mg capsule 100 mg PO HSPRN PRN nerve pain 09/24/23 02/17/24 History
insulin aspart 16 sliding scale dose SC AC 09/24/23 02/17/24 History
(niacinamide)(U-100) 100 unit/mL(3 Diabetes
mL) subcutaneous pen (Fiasp
FlexTouch U-100 Insulin)
insulin degludec 100 unit/mL (3 45 unit SC HS Diabetes 09/24/23 02/17/24 History
mL) subcutaneous pen (Tresiba
FlexTouch U-100 insulin)
oxybutynin chloride 5 mg 5 mg PO DAILY Urinary Issue 09/24/23 02/17/24 History
tablet,extended release 24 hr
vitamins A,C,S-iwrr-poznyj 2,148 1 tab PO DAILY Supplement 09/24/23 02/17/24 History
mcg-113 mg-45 mg-17.4 mg tablet
(PreserVision AREDS)
furosemide 40 mg tablet 60 mg (1.5 x 40 mg) PO 09/29/23 02/17/24 Rx
BID@0800,1600 #90 tabs
metoprolol succinate 25 mg 12.5 mg (1/2 x 25 mg) PO DAILY #30 09/29/23 02/17/24 Rx
tablet,extended release 24 hr tabs
famotidine 20 mg tablet 20 mg PO DAILY 02/17/24 02/17/24 History
Review of Systems
-
History Source: Patient
All other systems: Negative unless noted
Physical Exam
Vital Signs
Temp Pulse Resp BP Pulse Ox
97.7 F 73 17 178/95 98
02/17/24 08:51 02/17/24 08:45 02/17/24 08:45 02/17/24 08:41 02/17/24 08:45
GEN: No distress, awake, Ox3, sitting in chair; morbidly obese
HEENT: supple, anicteric, mmm
LUNGS: CTA, no wheezes/rales
CV: Irregularly irregular, S1/S2, 1/6 syst LSB, no murmur
ABD: soft, BS+, NT/ND
EXT: +2-3 lower extremity edema; skin changes consistent with chronic venous stasis, erythema of left ankle foot
NEURO: Gross non-focal
SKIN: No rash, warm, dry, pink
Lab Results
Troponin I < 0.012 ng/ml 02/16/24 23:55
Hhk-W-Oopzmjnaeqo Pept 2009 pg/ml 02/16/24 23:55
Impression / Plan
-
PCP: Joyce Travis
Primary Title Clerk: Dr. Casas
Impression:
Presents 02/16/2024 with progressively worsening lower extremity edema dyspnea on exertion and weight gain
Acute on chronic heart failure with preserved ejection fraction, proBNP 2009
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
Left ankle cellulitis
Chronic atrial fibrillation
Chronic OAC with eliquis
History of PVI 2012
Multiple failed AAD therapies
Diabetes
Chronic lymphedema
Chronic renal insufficiency
SHAUN on CPAP
Hypothyroidism
HTN
HLD
Obesity
History of pauses on BB therapy in past
ECHO 03/10/2023: EF 55 to 60%, mild concentric LVH, mild to moderate MR, mild TR, A-fib during study
ECHO 09/25/23: EF 67%, mild cLVH, mild MR, mild CA, no significant change compared to prior
Lexiscan nuclear stress test 12/08/2023: Fixed defects in basal inferolateral, basal inferior, mid inferolateral, mid inferior, apical anterior, apex and apical inferior segments consistent with soft tissue attenuation. EF 63%.
Plan:
Presents 02/16/2024 with progressively worsening lower extremity edema, dyspnea on exertion and weight gain.
Acute on chronic heart failure with preserved ejection fraction, proBNP 2009 and chest x-ray concerning for acute heart failure.
Volume status is somewhat difficult to determine however weight is up 11 pounds compared to prior discharge weight in September 2023. Continue diuresis with IV Lasix 60 mg twice daily.
Continue to monitor and trend response to diuresis. BUN elevated at 47, creatinine 1.1
Not chronically on ANAYA/ARB/ARNI due to CKD. Could can consider initiation SGLT2 inhibitor. Baseline creatinine traditionally has run 1.2-1.4
Lower extremity venous Doppler negative for DVT
Permanent atrial fibrillation with prior PVI and multiple failed antiarrhythmic drug therapies.
Patient has intermittent palpitations and tachycardia raising concern for tachy-bradycardia syndrome. Tolerates low-dose Toprol. However has underlying bradycardia with heart rates in the 30s. Also noted to have pauses in the past. There has
been outpatient discussion regarding pacemaker implant but there was found to be no imminent need. Continue to monitor on telemetry. Patient does have sleep apnea and is on AutoPap at home. Pauses noted on telemetry last night occurred while
patient was not on CPAP/AutoPap. SHAUN likely contributing to her nocturnal bradycardia and pauses.
Device implant would be higher risk given her BMI of 47
Continue Eliquis 5 mg twice daily
Blood pressure noted to be elevated. Patient reports better controlled as outpatient. Continue to monitor with diuresis.
HPI 02/17/2024:
Patient is an 78 yo F with PMH of morbid obesity, chronic atrial fibrillation on Eliquis, history of PVI in 2012 and has failed multiple AAD therapies, chronic HF with preserved ejection fraction, diabetes, lymphedema, SHAUN on CPAP. She has long
standing history of pauses and bradycardia on BB in past and it was discontinued for this reason. However over the last year she has noted intermittent palpitations and was reinitiated on low-dose Toprol and has done reasonably well. She now
presents to emergency department 02/17/2024 with lower extremity edema, dyspnea on exertion and weight gain over the last 5 to 7 days. She took an extra dose of Lasix with poor response and decided to come to emergency department for evaluation.
proBNP 2009. Chest x-ray shows mild congestive heart failure as well as hyperaeration suspicious for COPD. Lower extremity venous Doppler negative for DVT. EKG showed rate controlled atrial fibrillation. Troponin undetectable. She also
complains of left foot and ankle pain raising concern for possible cellulitis. Patient received 60 mg IV Lasix in emergency department and IV cefazolin.
Patient admits to intermittent episodes of dizziness/lightheadedness. She reports sometimes it wakes her from sleep other times she can feel that way during the day. She denies chest pain.
Data Reviewed
-
EKG: Report Reviewed by me, Discussed with Physician and Discussed with Patient
Radiology: Report Reviewed by me, Discussed with Physician and Discussed with Patient
Ultrasound: Report Reviewed by me, Discussed with Physician and Discussed with Patient
Labs: Labs Reviewed by me, Discussed with Physician and Discussed with Patient
Old Records: Reviewed
--- NOTE | 2024-02-17 11:55 | PTCARENOTE ---
Pt admitted to ICU bed 3364 as telemetry overflow at 0830. Pt AAOx3. Transferred to bed via walker. Afib with occasional PVCs. +4 lower extremity edema with blisters. Lungs CTA. Denies SOB on room air. Good appetite. Reports last BM yesterday.
Clear yellow urine via purewick. Transferred OOB to chair with PT/OT.
[2024-02-17] MEDS: NOVOLOG FLEXPEN-MODERATE RESISTANCE 3 UNITS SC (12:29)
[2024-02-17 12:40] LABS: Glucose - Point of Care 219 mg/dl (70-99)
[2024-02-17 13:32] LABS: % Basophils 0.3 % (0-2); % Eosinophils 1.3 % (0-6); % Immature Granulocytes 0.3 % (0-0.5); % Lymphocytes 18.1 % (20.5-51.1); Absolute Eosinophils 0.1 10^3/uL (0-0.7); Absolute Lymphocytes 1.4 10^3/uL (1.2-3.4); Absolute Monocytes 0.6 10^3/uL (0.1-0.6); Absolute Neutrophils 5.4 10^3/uL (1.4-6.5); Hematocrit 37.3 % (37.0-47.0); Hemoglobin 11.8 g/dL (12.0-16.0); Mean Corp Hgb Conc. 31.6 g/dL (33.0-37.0); Mean Corpuscular Volume 88.6 fL (81.0-99.0); Mean Platelet Volume 11.1 fL (7.4-10.4); Nucleated Red Blood Cells % 0 %; Platelet Count 152 10^3/uL (130-400); Red Blood Cell Count 4.21 10^6/uL (4.20-5.40); Red Cell Dist. Width 14.2 % (11.5-14.5); White Blood Cell Count 7.5 10^3/uL (4.8-10.8)
[2024-02-17 14:07] LABS: Blood Urea Nitrogen 40 mg/dl (7-17); Calcium 9.8 mg/dl (8.4-10.2); Carbon Dioxide 27 mmol/L (22-30); Chloride 105 mmol/L (98-107); Estimated Creatinine Clearance 65 ml/min; Glucose 237 mg/dl (70-99); Magnesium 1.7 mg/dl (1.6-2.3); Potassium 3.8 mmol/L (3.5-5.1); Sodium 143 mmol/L (135-145); eGFR 56.95
[2024-02-17 15:27] LABS: TSH Reflex To Free T4 0.58 uIU/ml (0.47-4.68)
[2024-02-17 17:18] LABS: Glucose - Point of Care 298 mg/dl (70-99)
[2024-02-17] MEDS: LASIX IV (17:19)
[2024-02-17] MEDS: NOVOLOG FLEXPEN-MODERATE RESISTANCE 5 UNITS SC (17:21)
[2024-02-17] MEDS: LASIX 80 MG IV (17:21)
--- NOTE | 2024-02-17 17:58 | PTCARENOTE ---
BS 298. Pt reports missing last night Lantus dose of 45 units. Also states she takes 12 units with meals. MD notified. New order for 4 untis Novolog with meals.
[2024-02-17] MEDS: NOVOLOG FLEXPEN 4 UNITS SC (18:33)
[2024-02-17 21:40] LABS: Glucose - Point of Care 229 mg/dl (70-99)
[2024-02-17] MEDS: NORVASC 2.5 MG PO (21:40)
[2024-02-17] MEDS: LANTUS 0.3 UNITS SC (21:41)
[2024-02-18] MEDS: ANCEF 10 IV ×3 (03:19→20:14)
[2024-02-18 03:41] VITALS: BP 162/78
[2024-02-18 05:45] VITALS: BMI 47.1
--- NOTE | 2024-02-18 07:38 | PN.DE.MGMTRT ---
Insulin Management
- -
02/18/2024 Diabetes Management Consult
Patient admitted 02/15 increased swelling of legs, L leg pain, increasing SOB - acute on chronic CHF. PMH: HTN, HLD, CAD, CHF, diabetes CKD 3b, obesity, SHAUN with CPAP, chronic lymphedema, afib, hypothyroid. Prior to admission was taking fiasp 12
units AC and degludec 45 units @ HS. A1C pending. CR 1, eGFR 56.95.
Patient is awake alert and oriented, resting in bed, able to discuss diabetes management. States she has a Verio meter with adequate test strips and lancets.
02/16 @ hs patient received 30 units lantus. AC novolog started 4 units with dinner 02/16. HS glucose 229.
02/17 Fasting glucose 168. Will increase HS lantus to 32 units and AC novolog to 6 units. Discussed with patient adding SGLT2 due to cardiac history. Cost seems to be 0 copay. Will start 10 mg Farxiga now and daily.
Patient very receptive.
Discussed with nurse.
Diabetes History
- -
Type of Diabetes: 2 requiring insulin
Pre-Admission Diabetes Regimen
02/17/24
12:59
Creatinine 1.0
Insulin Pump Settings
IP Diabetes Regimen
02/17/24 02/17/24 02/17/24
09:56 12:28 12:59
Glucose 237 H
POC Glucose 139 H 219 H
02/17/24 02/17/24
17:07 21:39
Glucose
POC Glucose 298 H 229 H
Meal type: Breakfast
Amount consumed: 100%
Patient Education
[2024-02-18 08:00] VITALS: BP 146/81
[2024-02-18 08:24] LABS: Glucose - Point of Care 213 mg/dl (70-99)
[2024-02-18] MEDS: NOVOLOG FLEXPEN 4 UNITS SC ×3 (08:42→17:23)
[2024-02-18] MEDS: NOVOLOG FLEXPEN-MODERATE RESISTANCE 3 UNITS SC ×2 (08:42→17:22)
[2024-02-18] MEDS: ELIQUIS 5 MG PO ×2 (08:43→20:14)
[2024-02-18] MEDS: DIOVAN 40 MG PO (08:43)
[2024-02-18] MEDS: SYNTHROID 125 MCG PO (08:43)
[2024-02-18] MEDS: PROTONIX 40 MG PO (08:44)
[2024-02-18] MEDS: LIPITOR 20 MG PO (08:44)
[2024-02-18] MEDS: LASIX 80 MG IV ×2 (08:44→17:00)
[2024-02-18 08:50] LABS: Hematocrit 36.6 % (37.0-47.0); Hemoglobin 11.8 g/dL (12.0-16.0); Mean Corp Hgb Conc. 32.2 g/dL (33.0-37.0); Mean Corpuscular Hgb 27.8 pg (27.0-31.0); Mean Corpuscular Volume 86.3 fL (81.0-99.0); Mean Platelet Volume 10.9 fL (7.4-10.4); Platelet Count 160 10^3/uL (130-400); Red Blood Cell Count 4.24 10^6/uL (4.20-5.40); Red Cell Dist. Width 14.3 % (11.5-14.5); White Blood Cell Count 7.8 10^3/uL (4.8-10.8)
[2024-02-18 10:02] LABS: Glucose - Point of Care 168 mg/dl (70-99)
[2024-02-18 10:04] LABS: Blood Urea Nitrogen 45 mg/dl (7-17); Calcium 9.6 mg/dl (8.4-10.2); Carbon Dioxide 33 mmol/L (22-30); Chloride 102 mmol/L (98-107); Estimated Creatinine Clearance 54 ml/min; Glucose 198 mg/dl (70-99); HDL Cholesterol 40 mg/dl; LDL Cholesterol, Calculated 114 mg/dl; Potassium 3.9 mmol/L (3.5-5.1); Sodium 144 mmol/L (135-145); Total Cholesterol 176 mg/dl (50-199); Triglyceride 112 mg/dl (10-149); Very Low Density Lipoprotein 22 mg/dl (0-30); eGFR 45.76
[2024-02-18 11:59] LABS: Glucose - Point of Care 313 mg/dl (70-99)
[2024-02-18 12:15] VITALS: BP 142/84
[2024-02-18] MEDS: NOVOLOG FLEXPEN-MODERATE RESISTANCE 7 UNITS SC (13:02)
--- NOTE | 2024-02-18 14:05 | CM ---
Reviewed the chart notes and spoke with the patient at the bedside. The patient resides alone in a third floor apartment with elevator access. The patient has a rolling walker, wheelchair, shower chair, and shower rails. The patient has had [facility]
VN in the past. The reports no SNF. The patient confirmed her pharmacy of choice is the [facility]. continues to be available to patient/family and is monitoring medical plan for needs at discharge.
Plan: Discharge plans will depend on the patient's progress. Patient may benefit from VN.
--- NOTE | 2024-02-18 14:26 | W.PN.HOSP.TC ---
Today's Communication/Plan
-
Continue IV diuresis
Patient reports compliance with her CPAP
Appreciate cardiology
Assessment / Plan
Assessment / Plan
Physical Exam
General: Morbidly obese. Not in acute distress.
HEENT: Moist mucous membranes
Respiratory: CTAB
Cardiac: S1/S2, Irregular Rhythm and Murmur (II/ ALDO)
GI: Non Tender, Non Distended and Normal Bowel Sounds
Musculoskeletal: 4+ pitting edema bilateral lower extremities with blistering of the skin, mild erythema and localized tenderness
Neuro: AO x 3
Assessment/Plan
Patient is an 78y F with PMH significant for CHF, A-Fib and morbid obesity who presented to the [facility] Emergency Department complaining of lower extremity edema and discomfort x 5-6 days.
Presentation on 02/16/2024 with progressively worsening lower extremity edema dyspnea on exertion and weight gain
Acute on Chronic HFpEF
Chronic Lymphedema
- Weight gain, LE edema and elevated BNP c/w volume overload.
- Continue IV Lasix 80 mg BID for now.
- Follow I/Os, daily weights, etc.
- Cardiology evaluation for additional recommendations.
- Not chronically on ANAYA/ARB/ARNI due to CKD.
- Could can consider initiation SGLT2 inhibitor.
- Consider addition of Spironolactone
- PT / Lymphedema therapy evaluation.
Possible Left Ankle Cellulitis
- With pain in the L ankle / foot it is possible there is a component of cellulitis.
- Continue IV Ancef for now.
- Follow for fever, new / worsening symptoms, etc.
- Would have low threshold to discontinue abx if symptoms improve readily with diuresis.
Permanent Atrial Fibrillation
History of PVI 2012
Multiple failed AAD therapies
- Stable. Monitor on tele.
- Continue Eliquis for stroke risk reduction.
- Continue metoprolol.
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
History of pauses on beta miguel a therapy in past
- On 02/17/24 morning, noted episodes of bradycardia into the 30s
- Pauses noted on telemetry on 02/16/24 to 02/17/24 overnight occurred while patient was not on CPAP/AutoPap - SHAUN could be contributing to her nocturnal bradycardia and pauses - but patient reports compliance with her CPAP
- There was outpatient discussion regarding pacemaker, but there was no imminent need for it
- Patient has intermittent palpitations and tachycardia raising concern for tachy-bradycardia syndrome, but tolerates low dose Toprol XL
- Continue to monitor on telemetry
Benign Hypertension
- Stable. Continue usual meds with holding parameters.
Hyperlipidemia
DM-II
- Stable. Recent A1C was just > 7% per patient.
- Continue basal : bolus insulin regimen.
- Follow glucose and cover with SSI as needed.
- Per clinical pharmacists, patient takes insulin degludec 45 units HS at home. There is typically a 20% dose adjustment when converting to glargine which would be ~36 units.
- For now, continue glargine 30 units HS and increase as needed
Chronic Renal Insufficiency
-Baseline creatinine traditionally has run 1.2-1.4
SHAUN on CPAP
- Continue PAP therapy during hospital stay -- patient reports compliance with CPAP
- Patient uses AutoPAP at home - start with 5cm H2O and adjust as needed.
Hypothyroidism
- Continue current T4 supplementation.
- Update TFTs.
GERD
- Stable. Continue PPI.
Morbid Obesity secondary to excess calories
- Affects all aspects of care and contributes to chronic lymphedema issues.
- Encourage healthy diet and increased activity with goal of weight reduction.
DVT Prophylaxis: On Eliquis
Code Status: Full
Anticipated Discharge: 24 - 48 hours
Subjective/Interval History
-
Date of Service: February 18, 2024
Patient was seen and examined. She denied any symptoms or complaints, said she feels fine.
Objective Data
-
Labs:
Laboratory Results
02/18/24
07:35
WBC 7.8
Hgb 11.8 L
Hct 36.6 L
Plt Count 160
Sodium 144
Potassium 3.9
Chloride 102
Carbon Dioxide 33 H
BUN 45 H
Creatinine 1.2 H
Glucose 198 H
Calcium 9.6
Vital Signs:
Vital Signs
Temp Pulse Resp BP Pulse Ox
97.8 F 80 16 142/84 99
02/18/24 12:15 02/18/24 12:15 02/18/24 12:15 02/18/24 12:15 02/18/24 12:15
I&O
02/17/24 02/18/24 02/19/24
06:59 06:59 06:59
Intake Total 1080 / 1080
Output Total 900 / 900 2550 / 2550
Balance -900 / -900 -1470 / -1470
[2024-02-18 14:31] LABS: Glycohemoglobin (HgbA1c) 7.1 % (4.0-5.6)
[2024-02-18] MEDS: FARXIGA 10 MG PO (15:03)
--- NOTE | 2024-02-18 15:43 | W.PN.CARDCBS ---
Addendum entered and electronically signed by Haile Vargas DO 02/18/24 16:51:
I saw and examined the patient.
The Emergency Management Program Specialist's note was reviewed and I agree with the note.
Comment:
Plan:
Still with bradycardia overnight despite now using CPAP. Would consider pulm eval to eval settings of CPAP. Could also consider a nocturnal pulse ox to eval for desaturations during times of bradycardia
Would accept some daytime tachycardia given night time bradycardia.
Cont Eliquis. Cont rate control strategy for AFib given failed AADs.
Cont IV diuresis. Wt coming down.
Some edema related to chronic lymphedema.
Discussed with nursing.
Original Note:
Today's Communication / Plan
-
Cont Lasix 80 mg IV BID
Patient says she is wearing CPAP, but still with overnight stef and pauses that are not seen in the daytime while awake which suggests disordered sleep breathing as a contributing cause
Impression / Plan
-
PCP: Joyce Travis
Primary Truck Driving Instructor: Dr. Casas
Impression:
Admitted with progressively worsening lower extremity edema dyspnea on exertion and weight gain 02/16/2024
Acute on chronic HFpEF, proBNP 2009
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
Left ankle cellulitis
Chronic atrial fibrillation
Chronic OAC with eliquis
History of PVI 2012
Multiple failed AAD therapies
Diabetes
Chronic lymphedema
Chronic renal insufficiency
SHAUN on CPAP
Hypothyroidism
HTN
HLD
Obesity
History of pauses on BB therapy in past
ECHO 03/10/2023: EF 55 to 60%, mild concentric LVH, mild to moderate MR, mild TR, A-fib during study
ECHO 09/25/23: EF 67%, mild cLVH, mild MR, mild NV, no significant change compared to prior
Lexiscan nuclear stress test 12/08/2023: Fixed defects in basal inferolateral, basal inferior, mid inferolateral, mid inferior, apical anterior, apex and apical inferior segments consistent with soft tissue attenuation. EF 63%.
Plan:
-Weight is down 4 lbs overnight with Lasix 80 mg IV BID. Patient was taking Lasix 60 mg PO BID prior to admission.
-EF 67% by echo 09/25/2023.
-Outpatient dose of Toprol XL 12.5 mg daily is on hold due to tachybradycardia syndrome and pauses
-Not chronically on ANAYA/ARB/ARNI due to CKD
-Farxiga 10 mg daily added 02/18/2024, will ask CM to check on cost
-Pending renal function we will try to add low-dose spironolactone this admission
-Patient with known permanent A-fib and previous PVI and multiple failed AAD. Patient was on a regimen of rate control prior to admission using Toprol-XL 12.5 mg daily. As noted above Toprol-XL is now on hold due to bradycardia and pauses.
Patient has heart rate closer to 100-1 10 during the day but then heart rates in the 40s overnight. There is a history of SHAUN and patient is supposed to be on CPAP/AutoPap, but question if this is working as it should based on what we can see on
the telemetry. Patient reports she is compliant, could there be something wrong with the machine then
-There is no urgent indication for pacer, treatment should focus on sleep disordered breathing which seems to be contributing to nocturnal bradycardia.
-Outpatient dose of Eliquis 5 mg BID (age 78, Cre 1.2 and wt 136 kg) has been continued
HPI 02/17/2024: Patient is an 78 yo F with PMH of morbid obesity, chronic atrial fibrillation on Eliquis, history of PVI in 2012 and has failed multiple AAD therapies, chronic HF with preserved ejection fraction, diabetes, lymphedema, SHAUN on CPAP.
She has long standing history of pauses and bradycardia on BB in past and it was discontinued for this reason. However over the last year she has noted intermittent palpitations and was reinitiated on low-dose Toprol and has done reasonably well.
She now presents to emergency department 02/17/2024 with lower extremity edema, dyspnea on exertion and weight gain over the last 5 to 7 days. She took an extra dose of Lasix with poor response and decided to come to emergency department for
evaluation. proBNP 2009. Chest x-ray shows mild congestive heart failure as well as hyperaeration suspicious for COPD. Lower extremity venous Doppler negative for DVT. EKG showed rate controlled atrial fibrillation. Troponin undetectable. She
also complains of left foot and ankle pain raising concern for possible cellulitis. Patient received 60 mg IV Lasix in emergency department and IV cefazolin.
Patient admits to intermittent episodes of dizziness/lightheadedness. She reports sometimes it wakes her from sleep other times she can feel that way during the day. She denies chest pain.
Progress Note - Truck Driving Instructor
Subjective
Date of Service: February 18, 2024
No chest pain
Objective
Labs:
02/18/24 07:35
02/18/24 07:35
Labs
Hgb 11.8 g/dL (12.0-16.0) L 02/18/24 07:35
Hct 36.6 % (37.0-47.0) L 02/18/24 07:35
Plt Count 160 10^3/uL (130-400) 02/18/24 07:35
Sodium 144 mmol/L (135-145) 02/18/24 07:35
Potassium 3.9 mmol/L (3.5-5.1) 02/18/24 07:35
BUN 45 mg/dl (7-17) H 02/18/24 07:35
Creatinine 1.2 mg/dL (0.6-1.0) H 02/18/24 07:35
Glucose 198 mg/dl (70-99) H 02/18/24 07:35
Troponins
02/16/24
23:55
Troponin I < 0.012
Vital Signs and I&O:
Vital Signs
Temp Pulse Resp BP Pulse Ox
97.8 F 80 16 142/84 99
02/18/24 12:15 02/18/24 12:15 02/18/24 12:15 02/18/24 12:15 02/18/24 12:15
Vital Signs
Temp Pulse Resp BP Pulse Ox
97.8 F 80 16 142/84 99
02/18/24 12:15 02/18/24 12:15 02/18/24 12:15 02/18/24 12:15 02/18/24 12:15
Intake & Output
02/16/24 02/17/24 02/18/24 02/19/24
06:59 06:59 06:59 06:59
Intake Total 1080 / 1080
Output Total 900 / 900 2550 / 2550
Balance -900 / -900 -1470 / -1470
Physical Exam
Physical Exam
GEN: AAOx3
HEENT: mmm
LUNGS: No audible wheeze
CV: Afib on tele
ABD: ND
EXT: +3 B/L LE edema
NEURO: Gross non-focal
SKIN: No rash
[2024-02-18 17:05] LABS: Glucose - Point of Care 221 mg/dl (70-99)
[2024-02-18 17:29] VITALS: BP 138/87
[2024-02-18 19:22] VITALS: BP 125/83
[2024-02-18 21:35] LABS: Glucose - Point of Care 249 mg/dl (70-99)
[2024-02-18] MEDS: LANTUS 0.3 UNITS SC (21:36)
[2024-02-18] MEDS: NORVASC 2.5 MG PO (21:36)
[2024-02-18 23:51] VITALS: BP 109/75
[2024-02-19] VITALS (9 sets, daily range): BP systolic 98–148; BP diastolic 68–92; PULSE 76–85; O2SAT 97–98; BMI 46.2
[2024-02-19] MEDS: ANCEF 10 IV ×3 (03:48→20:11)
--- NOTE | 2024-02-19 07:17 | PN.DE.MGMTRT ---
Insulin Management
- -
02/19/2024 Diabetes Management Consult Follow up
Patient admitted 02/15 increased swelling of legs, L leg pain, increasing SOB - acute on chronic CHF. PMH: HTN, HLD, CAD, CHF, diabetes CKD 3b, obesity, SHAUN with CPAP, chronic lymphedema, afib, hypothyroid. Prior to admission was taking fiasp 12
units AC and degludec 45 units @ HS. A1C 7.1%. CR 1, eGFR 56.95.
Patient is awake alert and oriented, resting in bed, able to discuss diabetes management. States she has a Verio meter with adequate test strips and lancets.
02/17 @ hs patient received 30 units lantus. AC novolog started 4 units with dinner 02/16. HS glucose 229. Discussed with patient adding SGLT2 due to cardiac history, she is agreeable. Cost seems to be 0 copay.
02/18 Fasting glucose 238. Will increase HS lantus to 34 units and AC novolog to 8 units with moderate corrective and 10 mg Farxiga and daily. *Due to addition of Farxiga, first dose yesterday @ 3pm, lantus and novolog cautiously increased.
Expect SGLT2 to help reduce doses of insulin.
Patient very receptive.
Discussed with nurse.
Diabetes History
- -
Type of Diabetes: 2 requiring insulin
Pre-Admission Diabetes Regimen
02/18/24
07:35
Creatinine 1.2 H
Lab Results
Hemoglobin A1c 7.1 % (4.0-5.6) H 02/18/24 07:35
Insulin Pump Settings
IP Diabetes Regimen
02/18/24 02/18/24 02/18/24
07:35 08:22 09:59
Glucose 198 H
POC Glucose 213 H 168 H
02/18/24 02/18/24 02/18/24
11:58 17:04 21:34
Glucose
POC Glucose 313 H 221 H 249 H
Patient Education
[2024-02-19 07:32] LABS: Glucose - Point of Care 238 mg/dl (70-99)
[2024-02-19] MEDS: PROTONIX 40 MG PO (07:58)
[2024-02-19] MEDS: NOVOLOG FLEXPEN 8 UNITS SC ×3 (07:58→17:27)
[2024-02-19] MEDS: NOVOLOG FLEXPEN-MODERATE RESISTANCE 3 UNITS SC ×2 (07:58→17:27)
[2024-02-19] MEDS: LIPITOR 20 MG PO (07:58)
[2024-02-19] MEDS: DIOVAN 40 MG PO (07:58)
[2024-02-19] MEDS: FARXIGA 10 MG PO (07:58)
[2024-02-19] MEDS: SYNTHROID 125 MCG PO (07:58)
[2024-02-19] MEDS: ELIQUIS 5 MG PO ×2 (07:58→20:11)
[2024-02-19] MEDS: LASIX 80 MG IV (07:59)
[2024-02-19 10:01] LABS: Blood Urea Nitrogen 56 mg/dl (7-17); Calcium 10.2 mg/dl (8.4-10.2); Carbon Dioxide 28 mmol/L (22-30); Chloride 101 mmol/L (98-107); Estimated Creatinine Clearance 46 ml/min; Glucose 225 mg/dl (70-99); Magnesium 1.7 mg/dl (1.6-2.3); Potassium 3.8 mmol/L (3.5-5.1); Sodium 144 mmol/L (135-145); eGFR 38.03
[2024-02-19 11:30] LABS: Glucose - Point of Care 171 mg/dl (70-99)
[2024-02-19] MEDS: NOVOLOG FLEXPEN-MODERATE RESISTANCE 1 UNITS SC (11:38)
--- NOTE | 2024-02-19 11:57 | W.PN.CARDCBS ---
Addendum entered and electronically signed by Haile Vargas DO 02/19/24 12:26:
I saw and examined the patient.
The Keyboard Teacher's note was reviewed and I agree with the note.
Comment:
Plan:
Continues to diurese with IV lasix
Possible transition to oral lasix next 24 hrs
CPAP settings being adjusted to help with noturnal bradycardia that may be related to desaturations and suboptimal CPAP settings. Consider pulm eval.
Remains perm Afib, cont Eliquis
Outpt follow up to be arranged.
Pt was appreciative of care
Discussed with nursing.
Original Note:
Today's Communication / Plan
-
Change Lasix to 80 mg PO BID starting tomorrow
Impression / Plan
-
PCP: Joyce Travis
Primary Foreign Agent: Dr. Casas
Impression:
Admitted with progressively worsening lower extremity edema dyspnea on exertion and weight gain 02/16/2024
Acute on chronic HFpEF, proBNP 2009
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
Left ankle cellulitis
Chronic atrial fibrillation
Chronic OAC with eliquis
History of PVI 2012
Multiple failed AAD therapies
Diabetes
Chronic lymphedema
Chronic renal insufficiency
SHAUN on CPAP
Hypothyroidism
HTN
HLD
Obesity
History of pauses on BB therapy in past
ECHO 03/10/2023: EF 55 to 60%, mild concentric LVH, mild to moderate MR, mild TR, A-fib during study
ECHO 09/25/23: EF 67%, mild cLVH, mild MR, mild ME, no significant change compared to prior
Lexiscan nuclear stress test 12/08/2023: Fixed defects in basal inferolateral, basal inferior, mid inferolateral, mid inferior, apical anterior, apex and apical inferior segments consistent with soft tissue attenuation. EF 63%.
Plan:
-Weight is down another 5 lbs overnight with Lasix 80 mg IV BID. Patient was taking Lasix 60 mg PO BID prior to admission.
-Cre bumped to 1.4 on 02/19/24. Will change to Lasix 80 mg PO BID starting 02/20/24 AM
-Acute HFpEF and EF 67% by echo 09/25/2023.
-Outpatient dose of Toprol XL 12.5 mg daily is on hold due to tachybradycardia syndrome and pauses. Plan is for adjustments to CPAP 02/19/24 PM and if overnight bradycardia is improved then would try to restart BB.
-Not chronically on ANAYA/ARB/ARNI due to CKD
-Farxiga 10 mg daily added 02/18/2024, will ask CM to check on cost
-Will not add spironolactone due to Cre bumping to 1.4 on 02/19/24, will try to add when we see patient in the office for follow up
-Patient with known permanent A-fib and previous PVI and multiple failed AAD. Patient was on a regimen of rate control prior to admission using Toprol-XL 12.5 mg daily. As noted above Toprol-XL is now on hold due to bradycardia and pauses with a
plan to restart if CPAP adjustments improve nocturnal bradycardia.
-There is no urgent indication for pacer, treatment should focus on sleep disordered breathing which seems to be contributing to nocturnal bradycardia.
-Outpatient dose of Eliquis 5 mg BID (age 78, Cre 1.4 and wt 136 kg) has been continued
HPI 02/17/2024: Patient is an 78 yo F with PMH of morbid obesity, chronic atrial fibrillation on Eliquis, history of PVI in 2012 and has failed multiple AAD therapies, chronic HF with preserved ejection fraction, diabetes, lymphedema, SHAUN on CPAP.
She has long standing history of pauses and bradycardia on BB in past and it was discontinued for this reason. However over the last year she has noted intermittent palpitations and was reinitiated on low-dose Toprol and has done reasonably well.
She now presents to emergency department 02/17/2024 with lower extremity edema, dyspnea on exertion and weight gain over the last 5 to 7 days. She took an extra dose of Lasix with poor response and decided to come to emergency department for
evaluation. proBNP 2009. Chest x-ray shows mild congestive heart failure as well as hyperaeration suspicious for COPD. Lower extremity venous Doppler negative for DVT. EKG showed rate controlled atrial fibrillation. Troponin undetectable. She
also complains of left foot and ankle pain raising concern for possible cellulitis. Patient received 60 mg IV Lasix in emergency department and IV cefazolin.
Patient admits to intermittent episodes of dizziness/lightheadedness. She reports sometimes it wakes her from sleep other times she can feel that way during the day. She denies chest pain.
Progress Note - Foreign Agent
Subjective
Date of Service: February 19, 2024
No chest pain
Objective
Labs:
02/18/24 07:35
02/19/24 07:29
Labs
Hgb 11.8 g/dL (12.0-16.0) L 02/18/24 07:35
Hct 36.6 % (37.0-47.0) L 02/18/24 07:35
Plt Count 160 10^3/uL (130-400) 02/18/24 07:35
Sodium 144 mmol/L (135-145) 02/19/24 07:29
Potassium 3.8 mmol/L (3.5-5.1) 02/19/24 07:29
BUN 56 mg/dl (7-17) H 02/19/24 07:29
Creatinine 1.4 mg/dL (0.6-1.0) H 02/19/24 07:29
Glucose 225 mg/dl (70-99) H 02/19/24 07:29
Troponins
02/16/24
23:55
Troponin I < 0.012
Vital Signs and I&O:
Vital Signs
Temp Pulse Resp BP Pulse Ox
97.6 F 88 16 134/87 97
02/19/24 07:35 02/19/24 07:35 02/19/24 07:35 02/19/24 07:35 02/19/24 07:35
Vital Signs
Temp Pulse Resp BP Pulse Ox
97.6 F 88 16 134/87 97
02/19/24 07:35 02/19/24 07:35 02/19/24 07:35 02/19/24 07:35 02/19/24 07:35
Intake & Output
02/17/24 02/18/24 02/19/24 02/20/24
06:59 06:59 06:59 06:59
Intake Total 1080 / 1080 240 / 240
Output Total 900 / 900 2550 / 2550 450 / 450
Balance -900 / -900 -1470 / -1470 -210 / -210
Physical Exam
Physical Exam
GEN: AAOx3
HEENT: mmm
LUNGS: No audible wheeze
CV: Afib on tele
ABD: ND
EXT: +2 B/L LE edema
NEURO: Gross non-focal
SKIN: No rash
[2024-02-19 14:12] LABS: Glucose - Point of Care 190 mg/dl (70-99)
--- NOTE | 2024-02-19 14:34 | CM ---
Reviewed chart notes. CM consult for Farxiga 10mg wu check. Call placed to pharmacy. Per pharmacist, copay is $0. CM continues to be available to patient/family and is monitoring medical plan for needs at discharge.
Plan: Discharge plans will depend on the patient's progress.
--- NOTE | 2024-02-19 16:34 | W.PN.HOSP.TC ---
Today's Communication/Plan
-
Continue IV diuresis
Appreciate cardiology
Assessment / Plan
Assessment / Plan
Physical Exam
General: Morbidly obese. Not in acute distress.
HEENT: Moist mucous membranes
Respiratory: CTAB
Cardiac: S1/S2, Irregular Rhythm and Murmur (II/ ALDO)
GI: Non Tender, Non Distended and Normal Bowel Sounds
Musculoskeletal: 4+ pitting edema bilateral lower extremities with blistering of the skin, mild erythema and localized tenderness
Neuro: AO x 3
Assessment/Plan
Patient is an 78y F with PMH significant for CHF, A-Fib and morbid obesity who presented to the [facility] Emergency Department complaining of lower extremity edema and discomfort x 5-6 days.
Presentation on 02/16/2024 with progressively worsening lower extremity edema dyspnea on exertion and weight gain
Acute on Chronic HFpEF
Chronic Lymphedema
- Weight gain, LE edema and elevated BNP c/w volume overload.
- Continue IV Lasix 80 mg BID for now.
- Follow I/Os, daily weights, etc.
- Cardiology evaluation for additional recommendations.
- Not chronically on ANAYA/ARB/ARNI due to CKD.
- Could can consider initiation SGLT2 inhibitor.
- Consider addition of Spironolactone -- but not now due to creatinine
- PT / Lymphedema therapy evaluation.
Possible Left Ankle Cellulitis
- With pain in the L ankle / foot it is possible there is a component of cellulitis.
- Continue IV Ancef for now.
- Follow for fever, new / worsening symptoms, etc.
- Would have low threshold to discontinue abx if symptoms improve readily with diuresis.
Permanent Atrial Fibrillation
History of PVI 2012
Multiple failed AAD therapies
- Stable. Monitor on tele.
- Continue Eliquis for stroke risk reduction.
- Continue metoprolol.
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
History of pauses on beta miguel a therapy in past
- On 02/17/24 morning, noted episodes of bradycardia into the 30s
- Pauses noted on telemetry on 02/16/24 to 02/17/24 overnight occurred while patient was not on CPAP/AutoPap - SHAUN could be contributing to her nocturnal bradycardia and pauses - but patient reports compliance with her CPAP -- will need close
outpatient follow-up with pulmonary for another sleep study
- There was outpatient discussion regarding pacemaker, but there was no imminent need for it
- Patient has intermittent palpitations and tachycardia raising concern for tachy-bradycardia syndrome, outpatient dose of Toprol XL 12.5 mg daily is on hold due to tachybradycardia syndrome and pauses
- Continue to monitor on telemetry
Benign Hypertension
- Stable. Continue usual meds with holding parameters.
Hyperlipidemia
DM-II
- Stable. Recent A1C was just > 7% per patient.
- Continue basal : bolus insulin regimen.
- Follow glucose and cover with SSI as needed.
- Per clinical pharmacists, patient takes insulin degludec 45 units HS at home. There is typically a 20% dose adjustment when converting to glargine which would be ~36 units.
- Increase HS lantus to 34 units and AC novolog to 8 units with moderate corrective and 10 mg Farxiga and daily.
- Diabetes SHAKER WASHER consulted, appreciate their evaluation and recommendations
Chronic Renal Insufficiency
-Baseline creatinine traditionally has run 1.2-1.4
SHAUN on CPAP
- Continue PAP therapy during hospital stay -- patient reports compliance with CPAP
- Patient uses AutoPAP at home - start with 5cm H2O and adjust as needed.
Hypothyroidism
- Continue current T4 supplementation.
- Update TFTs.
GERD
- Stable. Continue PPI.
Morbid Obesity secondary to excess calories
- Affects all aspects of care and contributes to chronic lymphedema issues.
- Encourage healthy diet and increased activity with goal of weight reduction.
DVT Prophylaxis: On Eliquis
Code Status: Full
Anticipated Discharge: 24 - 48 hours
Subjective/Interval History
-
Date of Service: February 19, 2024
Patient was seen and examined. She denied any complaints.
Objective Data
-
Labs:
Laboratory Results
02/19/24
07:29
Sodium 144
Potassium 3.8
Chloride 101
Carbon Dioxide 28
BUN 56 H
Creatinine 1.4 H
Glucose 225 H
Calcium 10.2
Vital Signs:
Vital Signs
Temp Pulse Resp BP Pulse Ox
97.6 F 76 16 140/75 97
02/19/24 15:40 02/19/24 15:40 02/19/24 15:40 02/19/24 15:40 02/19/24 15:40
I&O
02/18/24 02/19/24 02/20/24
06:59 06:59 06:59
Intake Total 1080 / 1080 240 / 240
Output Total 2550 / 2550 450 / 450
Balance -1470 / -1470 -210 / -210
[2024-02-19 16:59] LABS: Glucose - Point of Care 203 mg/dl (70-99)
[2024-02-19 21:46] LABS: Glucose - Point of Care 284 mg/dl (70-99)
[2024-02-19] MEDS: LANTUS 0.34 UNITS SC (22:12)
[2024-02-19] MEDS: NORVASC 2.5 MG PO (22:13)
[2024-02-20] VITALS (8 sets, daily range): BP systolic 108–167; BP diastolic 63–78; PULSE 85; O2SAT 95; BMI 45.3
[2024-02-20] MEDS: ANCEF 10 IV ×2 (04:21→12:09)
--- NOTE | 2024-02-20 07:04 | PN.DE.MGMTRT ---
Insulin Management
- -
02/20/2024 Diabetes Management Consult Follow up
Patient admitted 02/15 increased swelling of legs, L leg pain, increasing SOB - acute on chronic CHF. PMH: HTN, HLD, CAD, CHF, diabetes CKD 3b, obesity, SHAUN with CPAP, chronic lymphedema, afib, hypothyroid. Prior to admission was taking fiasp 12
units AC and degludec 45 units @ HS. A1C 7.1%. CR 1, eGFR 56.95.
Patient is awake alert and oriented, resting in bed, able to discuss diabetes management. States she has a Verio meter with adequate test strips and lancets.
02/18 Fasting glucose 238. Will increase HS lantus to 34 units and AC novolog to 8 units with moderate corrective and 10 mg Farxiga and daily. *Due to addition of Farxiga, first dose yesterday @ 3pm, lantus and novolog cautiously increased.
Expect SGLT2 to help reduce doses of insulin.
02/19 Glucose remains elevated, will increase AC novolog to 12, home dose, today. Will continue HS lantus 34 units and continue Farxiga.
Patient very receptive.
Discussed with nurse.
Diabetes History
- -
Type of Diabetes: 2 requiring insulin
Pre-Admission Diabetes Regimen
02/19/24
07:29
Creatinine 1.4 H
Lab Results
Hemoglobin A1c 7.1 % (4.0-5.6) H 02/18/24 07:35
Insulin Pump Settings
IP Diabetes Regimen
02/19/24 02/19/24 02/19/24
07:29 07:30 11:28
Glucose 225 H
POC Glucose 238 H 171 H
02/19/24 02/19/24 02/19/24
14:11 16:57 21:44
Glucose
POC Glucose 190 H 203 H 284 H
Meal type: Dinner
Meal type: Lunch
Meal type: Breakfast
Amount consumed: 100%
Amount consumed: 100%
Amount consumed: 100%
Patient Education
[2024-02-20 07:26] LABS: Hematocrit 36.4 % (37.0-47.0); Hemoglobin 11.7 g/dL (12.0-16.0); Mean Corp Hgb Conc. 32.1 g/dL (33.0-37.0); Mean Corpuscular Hgb 28.1 pg (27.0-31.0); Mean Corpuscular Volume 87.5 fL (81.0-99.0); Mean Platelet Volume 11.2 fL (7.4-10.4); Platelet Count 177 10^3/uL (130-400); Red Blood Cell Count 4.16 10^6/uL (4.20-5.40); Red Cell Dist. Width 14.4 % (11.5-14.5); White Blood Cell Count 7.2 10^3/uL (4.8-10.8)
[2024-02-20] MEDS: SYNTHROID 125 MCG PO (07:52)
[2024-02-20] MEDS: LIPITOR 20 MG PO (07:52)
[2024-02-20] MEDS: LASIX 80 MG PO ×2 (07:52→15:43)
[2024-02-20] MEDS: DIOVAN 40 MG PO (07:52)
[2024-02-20] MEDS: PROTONIX 40 MG PO (07:52)
[2024-02-20] MEDS: NOVOLOG FLEXPEN 12 UNITS SC ×2 (07:53→12:10)
[2024-02-20] MEDS: ELIQUIS 5 MG PO ×2 (07:53→20:14)
[2024-02-20 07:56] LABS: Glucose - Point of Care 133 mg/dl (70-99)
[2024-02-20] MEDS: NOVOLOG FLEXPEN-MODERATE RESISTANCE SC ×2 (07:56→12:10)
[2024-02-20] MEDS: FARXIGA 10 MG PO (08:00)
[2024-02-20 08:04] LABS: Blood Urea Nitrogen 65 mg/dl (7-17); Calcium 9.9 mg/dl (8.4-10.2); Carbon Dioxide 30 mmol/L (22-30); Chloride 102 mmol/L (98-107); Estimated Creatinine Clearance 45 ml/min; Glucose 146 mg/dl (70-99); Magnesium 1.8 mg/dl (1.6-2.3); Potassium 3.9 mmol/L (3.5-5.1); Sodium 145 mmol/L (135-145); eGFR 38.03
--- NOTE | 2024-02-20 10:34 | W.PN.HOSP.TC ---
Today's Communication/Plan
-
High blood sugar
Adjust Insulin
Hold beta miguel a
Appreciate cardiology
Appreciate Diabetes Nurse Practitioner
Assessment / Plan
Assessment / Plan
Physical Exam
General: Morbidly obese. Not in acute distress.
HEENT: Moist mucous membranes
Respiratory: CTAB
Cardiac: S1/S2, Irregular Rhythm and Murmur (II/ ALDO)
GI: Non Tender, Non Distended and Normal Bowel Sounds
Musculoskeletal: 4+ pitting edema bilateral lower extremities with blistering of the skin, mild erythema and localized tenderness
Neuro: AO x 3
Assessment/Plan
Patient is an 78y F with PMH significant for CHF, A-Fib and morbid obesity who presented to the [facility] Emergency Department complaining of lower extremity edema and discomfort x 5-6 days.
Presentation on 02/16/2024 with progressively worsening lower extremity edema dyspnea on exertion and weight gain
Acute on Chronic HFpEF
Chronic Lymphedema
- Weight gain, LE edema and elevated BNP c/w volume overload.
- Status post IV Lasix 80 mg BID
- Now on PO Lasix 80 mg BID - continue
- Follow I/Os, daily weights, etc.
- Cardiology evaluation for additional recommendations.
- Not chronically on ANAYA/ARB/ARNI due to CKD.
- Continue Farxiga.
- Consider addition of Spironolactone -- but not now due to creatinine
- PT / Lymphedema therapy evaluation.
Possible Left Ankle Cellulitis
- With pain in the L ankle / foot it is possible there is a component of cellulitis.
- Transition to PO Keflex for 2 more days
- Follow for fever, new / worsening symptoms, etc.
- Would have low threshold to discontinue abx if symptoms improve readily with diuresis.
Permanent Atrial Fibrillation
History of PVI 2012
Multiple failed AAD therapies
- Stable. Monitor on tele.
- Continue Eliquis for stroke risk reduction.
- Continue metoprolol.
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
History of pauses on beta miguel a therapy in past
- On 02/17/24 morning, noted episodes of bradycardia into the 30s
- SHAUN could be contributing to her nocturnal bradycardia and pauses - but patient reports compliance with her CPAP -- will need close outpatient follow-up with pulmonary for another sleep study
- There was outpatient discussion regarding pacemaker, but there was no imminent need for it
- Patient has intermittent palpitations and tachycardia raising concern for tachy-bradycardia syndrome, outpatient dose of Toprol XL 12.5 mg daily is on hold due to tachybradycardia syndrome and pauses
- Continue to monitor on telemetry
Benign Hypertension
- Stable. Continue usual meds with holding parameters.
Hyperlipidemia
DM-II
- Stable. Recent A1C was just > 7% per patient.
- Continue basal : bolus insulin regimen.
- Follow glucose and cover with SSI as needed.
- Per clinical pharmacists, patient takes insulin degludec 45 units HS at home. There is typically a 20% dose adjustment when converting to glargine which would be ~36 units.
- Increase HS lantus to 34 units and AC novolog to 12 units with moderate corrective and 10 mg Farxiga and daily.
- High blood sugar on 02/20/24 -- will need continued Insulin adjustment
- Diabetes SUPERVISOR BRINE consulted, appreciate their evaluation and recommendations: on 02/20/24, I spoke to Diabetes SUPERVISOR BRINE Hazel Michelle and pharmacist Tracy Cabral, and they recommended continuing patient's usual, [id number]
home Insulin on discharge
Chronic Renal Insufficiency
-Baseline creatinine traditionally has run 1.2-1.4
SHAUN on CPAP
- Continue PAP therapy during hospital stay -- patient reports compliance with CPAP
- Patient uses AutoPAP at home - start with 5cm H2O and adjust as needed.
Hypothyroidism
- Continue current T4 supplementation.
- Update TFTs.
GERD
- Stable. Continue PPI.
Morbid Obesity secondary to excess calories
- Affects all aspects of care and contributes to chronic lymphedema issues.
- Encourage healthy diet and increased activity with goal of weight reduction.
DVT Prophylaxis: On Eliquis
Code Status: Full
Anticipated Discharge: Within 24 hours
Subjective/Interval History
-
Date of Service: February 20, 2024
Patient was seen and examined. She denied any chest pain, shortness of breath or any other complaints.
Objective Data
-
Labs:
Laboratory Results
02/20/24
07:16
WBC 7.2
Hgb 11.7 L
Hct 36.4 L
Plt Count 177
Sodium 145
Potassium 3.9
Chloride 102
Carbon Dioxide 30
BUN 65 H
Creatinine 1.4 H
Glucose 146 H
Calcium 9.9
Vital Signs:
Vital Signs
Temp Pulse Resp BP Pulse Ox
98 F 74 16 145/78 95
02/20/24 07:00 02/20/24 07:00 02/20/24 07:00 02/20/24 07:00 02/20/24 07:00
I&O
02/19/24 02/20/24 02/21/24
06:59 06:59 06:59
Intake Total 240 / 240 1620 / 1620
Output Total 450 / 450 600 / 600
Balance -210 / -210 1020 / 1020
[2024-02-20 12:02] LABS: Glucose - Point of Care 140 mg/dl (70-99)
[2024-02-20 13:44] LABS: Glucose - Point of Care 463 mg/dl (70-99)
[2024-02-20 14:09] LABS: Hematocrit 37.7 % (37.0-47.0); Hemoglobin 12.3 g/dL (12.0-16.0); Mean Corp Hgb Conc. 32.6 g/dL (33.0-37.0); Mean Corpuscular Hgb 28.3 pg (27.0-31.0); Mean Corpuscular Volume 86.9 fL (81.0-99.0); Mean Platelet Volume 11.1 fL (7.4-10.4); Platelet Count 184 10^3/uL (130-400); Red Blood Cell Count 4.34 10^6/uL (4.20-5.40); Red Cell Dist. Width 14.1 % (11.5-14.5); White Blood Cell Count 7.8 10^3/uL (4.8-10.8)
[2024-02-20 14:30] LABS: ALT (SGPT) < 10 U/L (0-35); AST (SGOT) 16 U/L (14-36); Albumin 3.6 g/dl (3.5-5.0); Alkaline Phosphatase 110 U/L (38-126); Blood Urea Nitrogen 64 mg/dl (7-17); Calcium 9.9 mg/dl (8.4-10.2); Carbon Dioxide 33 mmol/L (22-30); Chloride 100 mmol/L (98-107); Estimated Creatinine Clearance 42 ml/min; Glucose 211 mg/dl (70-99); Magnesium 1.7 mg/dl (1.6-2.3); Phosphorus 3.2 mg/dl (2.5-4.5); Potassium 3.9 mmol/L (3.5-5.1); Sodium 143 mmol/L (135-145); Total Bilirubin 0.3 mg/dl (0.2-1.3); Total Protein 6.4 g/dl (6.3-8.2); eGFR 35.01
--- NOTE | 2024-02-20 14:37 | CM ---
Reviewed the chart notes and spoke with the patient at the bedside. IMM signed and placed on the chart. PT recommeding SNF. Patient declined at this time. Per patient 'my sugars were high and I felt very dizzy'. Patient son is a physical
therapist. Patient agreeable to VN. Referral sent to VN. Patient has had in the past and felt they were very helpful. CM continues to be available to patient/family and is monitoring medical plan for needs at discharge.
Plan: Discharge to home with VN services.
--- NOTE | 2024-02-20 14:41 | W.PN.CARDCBS ---
Today's Communication / Plan
-
Still having some bradycardia. Would hold Toprol as outpatient.
Creatinine at 1.5 but overall acceptable. Continue Lasix 80 mg p.o. twice daily.
Continue Diovan/Farxiga. Holding spironolactone at this time because of creatinine of 1.5.
Okay for discharge from cardiology standpoint.
Impression / Plan
-
PCP: Joyce Travis
Primary Junior Accountant: Dr. Casas
Impression:
Admitted with progressively worsening lower extremity edema dyspnea on exertion and weight gain 02/16/2024
Acute on chronic HFpEF, proBNP 2009
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
Left ankle cellulitis
Chronic atrial fibrillation
Chronic OAC with eliquis
History of PVI 2012
Multiple failed AAD therapies
Diabetes
Chronic lymphedema
Chronic renal insufficiency
SHAUN on CPAP
Hypothyroidism
HTN
HLD
Obesity
History of pauses on BB therapy in past
ECHO 03/10/2023: EF 55 to 60%, mild concentric LVH, mild to moderate MR, mild TR, A-fib during study
ECHO 09/25/23: EF 67%, mild cLVH, mild MR, mild WA, no significant change compared to prior
Lexiscan nuclear stress test 12/08/2023: Fixed defects in basal inferolateral, basal inferior, mid inferolateral, mid inferior, apical anterior, apex and apical inferior segments consistent with soft tissue attenuation. EF 63%.
Plan:
-Weight is overall down about 30 pounds. Creatinine stable at 1.5. Continue Lasix 80 mg PO BID starting 02/20/24 AM
-Acute HFpEF and EF 67% by echo 09/25/2023.
-Outpatient dose of Toprol XL 12.5 mg daily is on hold due to tachybradycardia syndrome and pauses. With continued pauses would hold beta-miguel a as outpatient.
-Not chronically on ANAYA/ARB/ARNI due to CKD
-Farxiga 10 mg daily added 02/18/2024, will ask CM to check on cost
-Will not add spironolactone due to Cre bumping to 1.4 on 02/19/24, will try to add when we see patient in the office for follow up
-Patient with known permanent A-fib and previous PVI and multiple failed AAD. Patient was on a regimen of rate control prior to admission using Toprol-XL 12.5 mg daily. As noted above Toprol-XL is now on hold due to bradycardia and pauses with a
plan to restart if CPAP adjustments improve nocturnal bradycardia.
-There is no urgent indication for pacer, treatment should focus on sleep disordered breathing which seems to be contributing to nocturnal bradycardia.
-Outpatient dose of Eliquis 5 mg BID (age 78, Cre 1.4 and wt 136 kg) has been continued
HPI 02/17/2024: Patient is an 78 yo F with PMH of morbid obesity, chronic atrial fibrillation on Eliquis, history of PVI in 2012 and has failed multiple AAD therapies, chronic HF with preserved ejection fraction, diabetes, lymphedema, SHAUN on CPAP.
She has long standing history of pauses and bradycardia on BB in past and it was discontinued for this reason. However over the last year she has noted intermittent palpitations and was reinitiated on low-dose Toprol and has done reasonably well.
She now presents to emergency department 02/17/2024 with lower extremity edema, dyspnea on exertion and weight gain over the last 5 to 7 days. She took an extra dose of Lasix with poor response and decided to come to emergency department for
evaluation. proBNP 2009. Chest x-ray shows mild congestive heart failure as well as hyperaeration suspicious for COPD. Lower extremity venous Doppler negative for DVT. EKG showed rate controlled atrial fibrillation. Troponin undetectable. She
also complains of left foot and ankle pain raising concern for possible cellulitis. Patient received 60 mg IV Lasix in emergency department and IV cefazolin.
Patient admits to intermittent episodes of dizziness/lightheadedness. She reports sometimes it wakes her from sleep other times she can feel that way during the day. She denies chest pain.
Progress Note - Junior Accountant
Subjective
Date of Service: February 20, 2024
Denies any dizziness or lightheadedness.
Objective
Labs:
02/20/24 14:02
02/20/24 14:02
Labs
Hgb 12.3 g/dL (12.0-16.0) 02/20/24 14:02
Hct 37.7 % (37.0-47.0) 02/20/24 14:02
Plt Count 184 10^3/uL (130-400) 02/20/24 14:02
Sodium 143 mmol/L (135-145) 02/20/24 14:02
Potassium 3.9 mmol/L (3.5-5.1) 02/20/24 14:02
BUN 64 mg/dl (7-17) H 02/20/24 14:02
Creatinine 1.5 mg/dL (0.6-1.0) H 02/20/24 14:02
Glucose 211 mg/dl (70-99) H 02/20/24 14:02
Vital Signs and I&O:
Vital Signs
Temp Pulse Resp BP Pulse Ox
97.4 F 85 16 131/73 96
02/20/24 11:15 02/20/24 11:15 02/20/24 11:15 02/20/24 11:15 02/20/24 11:15
Vital Signs
Temp Pulse Resp BP Pulse Ox
97.4 F 85 16 131/73 96
02/20/24 11:15 02/20/24 11:15 02/20/24 11:15 02/20/24 11:15 02/20/24 11:15
Intake & Output
02/18/24 02/19/24 02/20/24 02/21/24
06:59 06:59 06:59 06:59
Intake Total 1080 / 1080 240 / 240 1620 / 1620
Output Total 2550 / 2550 450 / 450 600 / 600
Balance -1470 / -1470 -210 / -210 1020 / 1020
Physical Exam
Physical Exam
GEN: No distress, awake, Ox3
HEENT: supple, anicteric, mmm
LUNGS: CTA, no wheezes/rales
CV: irreg S1/S2, 1/6 syst LSB, no gallop
ABD: soft, BS+, NT/ND
EXT: No edema
NEURO: Gross non-focal
SKIN: No rash
--- NOTE | 2024-02-20 14:44 | PTCARENOTE ---
Patient called RN into room c/o of shakiness, dizziness and blurry vision. Blood sugar checked and read RR high. Blood glucose ordered and is 211. MD and nutrition educator made aware. VSS. MD will keep over night to monitor.
[2024-02-20] MEDS: NOVOLOG FLEXPEN 16 UNITS SC (17:20)
[2024-02-20] MEDS: NOVOLOG FLEXPEN-MODERATE RESISTANCE 3 UNITS SC (17:20)
[2024-02-20 17:21] LABS: Glucose - Point of Care 214 mg/dl (70-99)
[2024-02-20] MEDS: KEFLEX 500 MG PO ×2 (17:23→21:52)
[2024-02-20 21:38] LABS: Glucose - Point of Care 162 mg/dl (70-99)
[2024-02-20] MEDS: LANTUS 0.34 UNITS SC (21:51)
[2024-02-20] MEDS: NORVASC 2.5 MG PO (21:52)
[2024-02-21 04:00] VITALS: BP 116/69
[2024-02-21 06:00] VITALS: BMI 46.4
[2024-02-21 06:05] LABS: Hematocrit 35.8 % (37.0-47.0); Hemoglobin 11.4 g/dL (12.0-16.0); Mean Corp Hgb Conc. 31.8 g/dL (33.0-37.0); Mean Corpuscular Hgb 28.2 pg (27.0-31.0); Mean Corpuscular Volume 88.6 fL (81.0-99.0); Mean Platelet Volume 11.5 fL (7.4-10.4); Platelet Count 165 10^3/uL (130-400); Red Blood Cell Count 4.04 10^6/uL (4.20-5.40); Red Cell Dist. Width 14.2 % (11.5-14.5); White Blood Cell Count 7.9 10^3/uL (4.8-10.8)
[2024-02-21 06:21] LABS: Blood Urea Nitrogen 67 mg/dl (7-17); Calcium 9.9 mg/dl (8.4-10.2); Carbon Dioxide 34 mmol/L (22-30); Chloride 101 mmol/L (98-107); Estimated Creatinine Clearance 43 ml/min; Glucose 150 mg/dl (70-99); Magnesium 1.9 mg/dl (1.6-2.3); Sodium 143 mmol/L (135-145); eGFR 35.01
[2024-02-21 07:00] VITALS: BP 176/77
[2024-02-21 07:54] LABS: Glucose - Point of Care 146 mg/dl (70-99)
[2024-02-21] MEDS: KEFLEX 500 MG PO ×2 (09:28→13:23)
[2024-02-21] MEDS: LIPITOR 20 MG PO (09:28)
[2024-02-21] MEDS: LASIX 80 MG PO (09:29)
[2024-02-21] MEDS: PROTONIX 40 MG PO (09:29)
[2024-02-21] MEDS: ELIQUIS 5 MG PO (09:29)
[2024-02-21] MEDS: FARXIGA 10 MG PO (09:29)
[2024-02-21] MEDS: SYNTHROID 125 MCG PO (09:29)
[2024-02-21] MEDS: DIOVAN 40 MG PO (09:29)
[2024-02-21] MEDS: NOVOLOG FLEXPEN 16 UNITS SC ×2 (09:30→12:08)
[2024-02-21] MEDS: NOVOLOG FLEXPEN-MODERATE RESISTANCE SC ×2 (09:30→11:58)
[2024-02-21 11:00] VITALS: BP 141/75
[2024-02-21 11:56] LABS: Glucose - Point of Care 146 mg/dl (70-99)
[2024-02-21 13:39] VITALS: PULSE 104
--- NOTE | 2024-02-21 13:41 | W.PN.HOSP.TC ---
Today's Communication/Plan
-
Discharge today
Assessment / Plan
Assessment / Plan
Physical Exam
General: Morbidly obese. Not in acute distress.
HEENT: Moist mucous membranes
Respiratory: CTAB
Cardiac: S1/S2, Irregular Rhythm and Murmur (II/ ALDO)
GI: Non Tender, Non Distended and Normal Bowel Sounds
Musculoskeletal: 4+ pitting edema bilateral lower extremities with blistering of the skin, mild erythema and localized tenderness
Neuro: AO x 3. Nonfocal/grossly intact.
Assessment/Plan
Patient is an 78y F with PMH significant for CHF, A-Fib and morbid obesity who presented to the [facility] Emergency Department complaining of lower extremity edema and discomfort x 5-6 days.
Presentation on 02/16/2024 with progressively worsening lower extremity edema dyspnea on exertion and weight gain
Acute on Chronic HFpEF
Chronic Lymphedema
- Weight gain, LE edema and elevated BNP c/w volume overload.
- Status post IV Lasix 80 mg BID
- Now on PO Lasix 80 mg BID - continue
- Follow I/Os, daily weights, etc.
- Cardiology evaluation for additional recommendations.
- Not chronically on ANAYA/ARB/ARNI due to CKD.
- Continue Farxiga and Diovan.
- Consider addition of Spironolactone -- but not now due to creatinine
- PT / Lymphedema therapy evaluation.
Possible Left Ankle Cellulitis
- With pain in the L ankle / foot it is possible there is a component of cellulitis.
- PO Keflex for 1 more day
- Follow for fever, new / worsening symptoms, etc.
- Would have low threshold to discontinue abx if symptoms improve readily with diuresis.
Transient Episode of dizziness, shakiness and blurry vision
-Patient had a glucose level of 463 at that time
-I discussed on 02/20/24 the above symptoms patient had with neurology who mentioned that symptomatic hyperglycemia can give neurological symptoms and no need for consult right now
-Cardiology with no concerns from cardiac standpoint in relation to the above symptoms
-Per cardiology, patient is stable for discharge from cardiac standpoint, today
Permanent Atrial Fibrillation
History of PVI 2012
Multiple failed AAD therapies
- Stable. Monitor on tele.
- Continue Eliquis for stroke risk reduction.
- Continue metoprolol.
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
History of pauses on beta miguel a therapy in past
- On 02/17/24 morning, noted episodes of bradycardia into the 30s
- SHAUN could be contributing to her nocturnal bradycardia and pauses - but patient reports compliance with her CPAP -- will need close outpatient follow-up with pulmonary for another sleep study
- There was outpatient discussion regarding pacemaker, but there was no imminent need for it
- Patient has intermittent palpitations and tachycardia raising concern for tachy-bradycardia syndrome, outpatient dose of Toprol XL 12.5 mg daily is on hold due to tachybradycardia syndrome and pauses
- Continue to monitor on telemetry
Benign Hypertension
- Stable. Continue usual meds with holding parameters.
Hyperlipidemia
DM-II
- Stable. Recent A1C was just > 7% per patient.
- Continue basal : bolus insulin regimen.
- Follow glucose and cover with SSI as needed.
- Per clinical pharmacists, patient takes insulin degludec 45 units HS at home. There is typically a 20% dose adjustment when converting to glargine which would be ~36 units.
- Increase HS lantus to 34 units and AC novolog to 12 units with moderate corrective and 10 mg Farxiga and daily.
- High blood sugar on 02/20/24 -- patient's Insulin was increased to home dose and now sugars are controlled
- Diabetes JET WIPER consulted, appreciate their evaluation and recommendations: on 02/20/24, I spoke to Diabetes JET WIPER Hazel Michelle and pharmacist Tracy Cabral, and they recommended continuing patient's usual, [id number]
home Insulin on discharge
Chronic Renal Insufficiency
-Baseline creatinine traditionally has run 1.2-1.4
SHAUN on CPAP
- Continue PAP therapy during hospital stay -- patient reports compliance with CPAP
- Patient uses AutoPAP at home - start with 5cm H2O and adjust as needed.
Hypothyroidism
- Continue current T4 supplementation.
- Update TFTs.
GERD
- Stable. Continue PPI.
Morbid Obesity secondary to excess calories
- Affects all aspects of care and contributes to chronic lymphedema issues.
- Encourage healthy diet and increased activity with goal of weight reduction.
DVT Prophylaxis: On Eliquis
Code Status: Full
More than 30 minutes spent in discharge including
Final examination of the patient
Summarizing hospital stay
Instructions for continuing care to all relevant caregivers
Preparation of discharge records, prescriptions, and referral forms
Total time spent (in minutes): 35
Anticipated Discharge: Today
Subjective/Interval History
-
Date of Service: February 21, 2024
Patient was seen and examined. She denied any further dizziness, shakiness or blurry vision. She would like to go home today.
Objective Data
-
Labs:
Laboratory Results
02/21/24
05:16
WBC 7.9
Hgb 11.4 L
Hct 35.8 L
Plt Count 165
Sodium 143
Potassium 4.0
Chloride 101
Carbon Dioxide 34 H
BUN 67 H
Creatinine 1.5 H
Glucose 150 H
Calcium 9.9
Vital Signs:
Vital Signs
Temp Pulse Resp BP Pulse Ox
97.8 F 72 16 141/75 97
02/21/24 11:00 02/21/24 11:00 02/21/24 11:00 02/21/24 11:00 02/21/24 11:00
I&O
02/20/24 02/21/24 02/22/24
06:59 06:59 06:59
Intake Total 1620 / 1620 240 / 240
Output Total 600 / 600
Balance 1020 / 1020 240 / 240
[2024-02-21 13:51] LABS: Glucose - Point of Care 124 mg/dl (70-99)
--- NOTE | 2024-02-23 09:36 | W.HF.CON ---
Heart Failure
- LV Function
Left ventricular function study result: LV Ejection fraction >/= 50% (09/25/23)
Ejection Fraction Percentage: 67
- ARNI
Patient already on ARNI: No
Heart Failure ARNI Not Indicated: LV Ejection Fraction >/= 40%
- ACEI/ARB
Patient already on ACEI/ARB: Yes
- Beta Femi
Patient already on Evidence Based Beta Femi: No
Heart Failure Evidence Based Beta Femi Not Indicated: LV Ejection Fraction > 40%
- Mineralocorticord Receptor Antagonist
Patient already on MRA: No
Heart Failure MRA Not Indicated: LV Ejection Fraction > 40%
- SGLT-2 Inhibitor
Patient already on SGLT-2 Inhibitor: Yes
- Afib Anticoagulation
Patient already on Anticoagulation for Afib: Yes
- NYHA CHF Classification
NYHA CHF Classification Level: Class III - Symptoms w/ min exertion, interferes w/ nml daily activity
- ACC/AHA Stage
ACC/AHA Stage: Stage C: Symptomatic Heart Failure
== END 2024-02-21 16:30 | disposition home health service (06) | DRG 291 ==
LOC: 2 NORTH 04:54
PROVIDERS: Emergency Medicine; ADMITTING PHYSICIAN Hospitalist; ATTENDING PHYSICIAN Hospitalist; EMERGENCY PHYSICIAN Emergency Medicine; FAMILY PHYSICIAN Family Medicine; OTHER PHYSICIAN Internal Medicine Interventional Cardiology
DX: I13.0 Hypertensive heart and chronic kidney disease with heart failure and stage 1 through stage 4 chronic kidney disease, or unspecified chronic kidney disease (principal); I50.33 Acute on chronic diastolic (congestive) heart failure; I48.21 Permanent atrial fibrillation; L03.116 Cellulitis of left lower limb; Z68.42 Body mass index [BMI] 45.0-49.9, adult; N18.31 Chronic kidney disease, stage 3a; G47.33 Obstructive sleep apnea (adult) (pediatric); E03.9 Hypothyroidism, unspecified; K21.9 Gastro-esophageal reflux disease without esophagitis; E66.01 Morbid (severe) obesity due to excess calories; I89.0 Lymphedema, not elsewhere classified; E78.2 Mixed hyperlipidemia; E11.36 Type 2 diabetes mellitus with diabetic cataract; E11.22 Type 2 diabetes mellitus with diabetic chronic kidney disease
CPT/HCPCS: 71046; 73630; 80048; 80053; 80061; 82962; 83036; 83735; 83880; 84100; 84443; 84484; 85025; 85027; 93005; 93970; 94660; 96374; 96375; 97110; 97116; 97163; 97166; 97530; 97535; 99285

== ENCOUNTER → 2024-02-25 15:59 | Outpatient (REF) | payer MEDICARE, SELFPAY ==
[2024-02-25 16:32] LABS: % Basophils 0.4 % (0-2); % Eosinophils 1.2 % (0-6); % Immature Granulocytes 0.3 % (0-0.5); % Lymphocytes 21.1 % (20.5-51.1); % Monocytes 8.4 % (1.7-9.3); % Neutrophils 68.6 % (42.2-75.2); Absolute Eosinophils 0.1 10^3/uL (0-0.7); Absolute Lymphocytes 1.6 10^3/uL (1.2-3.4); Absolute Monocytes 0.6 10^3/uL (0.1-0.6); Absolute Neutrophils 5.1 10^3/uL (1.4-6.5); Hemoglobin 11.2 g/dL (12.0-16.0); Mean Corp Hgb Conc. 31.1 g/dL (33.0-37.0); Mean Corpuscular Hgb 27.5 pg (27.0-31.0); Mean Corpuscular Volume 88.2 fL (81.0-99.0); Nucleated Red Blood Cells % 0 %; Platelet Count 187 10^3/uL (130-400); Red Blood Cell Count 4.08 10^6/uL (4.20-5.40); Red Cell Dist. Width 14.2 % (11.5-14.5); White Blood Cell Count 7.4 10^3/uL (4.8-10.8)
[2024-02-25 16:35] LABS: Blood Urea Nitrogen 67 mg/dl (7-17); Carbon Dioxide 32 mmol/L (22-30); Chloride 97 mmol/L (98-107); Glucose 241 mg/dl (70-99); Magnesium 2.1 mg/dl (1.6-2.3); Potassium 4.4 mmol/L (3.5-5.1); Sodium 142 mmol/L (135-145); eGFR 28.13
== END ==
LOC: OLAB 15:59
PROVIDERS: ATTENDING PHYSICIAN Family Medicine; OTHER PHYSICIAN Internal Medicine Cardiovascular Disease
DX: I50.33 Acute on chronic diastolic (congestive) heart failure (principal)
CPT/HCPCS: 36415; 80048; 83735; 85025

== ENCOUNTER → 2024-03-05 09:20 | Outpatient (REF) | payer MEDICARE, SELFPAY ==
[2024-03-05 17:41] LABS: Blood Urea Nitrogen 65 mg/dl (7-17); Calcium 10.1 mg/dl (8.4-10.2); Carbon Dioxide 31 mmol/L (22-30); Chloride 101 mmol/L (98-107); Glucose 114 mg/dl (70-99); Potassium 4.4 mmol/L (3.5-5.1); Sodium 143 mmol/L (135-145); eGFR 30.13
== END ==
LOC: CLAB 09:20
PROVIDERS: ATTENDING PHYSICIAN Family Medicine
DX: I50.33 Acute on chronic diastolic (congestive) heart failure (principal)
CPT/HCPCS: 36415; 80048

== ENCOUNTER → 2024-11-16 14:01 | Outpatient (REF) | payer MEDICARE, SELFPAY ==
[2024-11-16 15:06] LABS: Urine Character Slightly Cloudy (Clear)
[2024-11-16 15:18] LABS: Urine Urothelial Cell 0-2 /LPF (FEW)
[2024-11-16 15:19] LABS: Urine White Cell 40-50 /HPF (0-5)
[2024-11-16 15:24] LABS: Albumin 3.8 g/dl (3.5-5.0); Blood Urea Nitrogen 46 mg/dl (7-17); Calcium 9.6 mg/dl (8.4-10.2); Carbon Dioxide 27 mmol/L (22-30); Chloride 103 mmol/L (98-107); Glucose 272 mg/dl (70-99); Potassium 3.6 mmol/L (3.5-5.1); Sodium 140 mmol/L (135-145); eGFR 29.94
== END ==
LOC: RAD 14:01
PROVIDERS: ATTENDING PHYSICIAN Internal Medicine Nephrology; FAMILY PHYSICIAN Family Medicine
DX: N18.32 Chronic kidney disease, stage 3b (principal)
CPT/HCPCS: 36415; 76775; 80069; 81003; 81015; 82570; 83970; 84156